=== PATIENT | male | born 1945 | race Caucasian/White ===

== ENCOUNTER → 2024-05-15 | Outpatient (CLI) | payer MEDICARE, BC, SELFPAY ==
--- NOTE | 2024-05-15 13:39 | XR_ITS ---
Examination: Lumbar spine, 5 views Technique: Lumbar spine AP, lateral, coned lateral lower lumbar spine, bilateral obliques 5 views Exam date and time: May 15, 2024 1418 hours INDICATIONS: Low back pain radiating down the left leg beginning one month ago. FINDINGS: Moderate osteopenia No lumbar acute fracture Diffuse lumbar degenerative disc disease, moderate to advanced L4-L5 Moderate lumbar spondylosis IMPRESSION: Diffuse lumbar degenerative disc disease, moderate to advanced L4-L5
== END | disposition home or self-care (01) ==
LOC: CDIM 13:28
PROVIDERS: PCP Family Medicine; Referring Provider Nurse Practitioner Family; Visit Provider Nurse Practitioner Family
DX: M51.369 Other intervertebral disc degeneration, lumbar region without mention of lumbar back pain or lower extremity pain (principal)
CPT/HCPCS: 72110

== ENCOUNTER → 2024-05-27 | Outpatient (CLI) | payer MEDICARE, BC, SELFPAY ==
--- NOTE | 2024-05-27 12:26 | XR_ITS ---
Examination: Knee, left , 3 views Technique: Knee AP, lateral, oblique 3 views Date and time of exam: May 27, 2024 1416 hours INDICATIONS: Left knee pain beginning 2 weeks ago. FINDINGS: Mild narrowing medial joint space No fracture or dislocation Moderate osteopenia IMPRESSION: Mild narrowing medial joint space
== END | disposition home or self-care (01) ==
PROVIDERS: PCP Nurse Practitioner Family; Referring Provider Nurse Practitioner Family; Visit Provider Nurse Practitioner
DX: M25.862 Other specified joint disorders, left knee (principal)
CPT/HCPCS: 73562

== ENCOUNTER → 2024-07-24 | Outpatient (CLI) | payer MEDICARE, BC, SELFPAY ==
[2024-07-24 16:50] LABS: Collection Type, Urine Clean Catch
[2024-07-24 17:01] LABS: Basophils # (Auto) 0.1 Thou/mm3 (0.0-0.2); Basophils % (Auto) 1 % (0-2.5); Eosinophils # (Auto) 0.1 Thou/mm3 (0.0-0.5); Eosinophils % (Auto) 1 % (0-10); Hematocrit 38.7 % (41.0-53.0); Hemoglobin 13.3 g/dL (13.5-16.0); Immature Granulocytes % (Auto) 1 % (0-0); Immature Granulocytes Auto 0.06 Thou/mm3 (0.00-0.00); Lymphocytes # (Auto) 2.2 Thou/mm3 (1.0-4.8); Lymphocytes % (Auto) 29 % (10-50); Mean Corpuscular HGB Conc 34.4 g/dl (31.0-37.0); Mean Corpuscular Hemoglobin 32.8 pg (25.0-35.0); Mean Corpuscular Volume 96 fL (80-100); Monocytes # (Auto) 0.8 Thou/mm3 (0.0-0.8); Monocytes % (Auto) 10 % (0-12); Neutrophils # (Auto) 4.5 Thou/mm3 (1.8-7.7); Neutrophils % (Auto) 59 % (37-80); Nucleated Red Blood Cell % 0 /100 WBC (0); Platelet Count 236 Thou/mm3 (140-440); RDW Standard Deviation 44.4 fL (35.1-43.9); Red Blood Count 4.05 Miln/mm3 (4.50-5.90); White Blood Count 7.6 Thou/mm3 (3.8-10.6)
[2024-07-24 17:08] LABS: Partial Thromboplastin Time 25.1 Seconds (22.0-36.0); Prothrombin Time 10.9 Seconds (9.0-12.2)
[2024-07-24 17:20] LABS: Bacteria,Urine Rare; Bilirubin,Urine Negative (Negative); Blood,Urine Negative (Negative); Clarity,Urine Clear (Clear/Hazy); Color,Urine Yellow (Lt Yel-Yel); Culture Indicated,Urine Not Indicated; Glucose, Urine Negative (Negative); Ketones,Urine Negative (Negative); Leukocyte Esterase,Urine Positive (Negative); Nitrite,Urine Negative (Negative); Protein,Urine 1+ (Neg - Trace); RBC,Urine 3 /hpf (0-3); Specific Gravity,Urine 1.029 (1.001-1.035); Squamous Epithelial Cell,Urine < 1 /hpf (0-5); WBC,Urine 9 /hpf (0-5)
[2024-07-24 17:27] LABS: Alanine Aminotransferase 53 U/L (10-49); Albumin, Serum 4.2 gm/dL (3.4-4.8); Albumin/Globulin Ratio 1.2 (1.2-2.2); Alkaline Phosphatase 134 U/L (46-116); Anion Gap 10 (7-16); Aspartate Amino Transferase 46 U/L (0-34); BUN/Creatinine Ratio 20 Ratio (12-20); Bilirubin,Total 0.4 mg/dL (0.3-1.2); Blood Urea Nitrogen 22 mg/dL (9-23); Calcium 9.5 mg/dL (8.3-10.6); Calcium (Corrected) 9.5 mg/dL (8.5-10.1); Carbon Dioxide 26.8 mMol/L (20.0-31.0); Chloride 102 mMol/L (98-107); Creatinine (Component) 1.1 mg/dL (0.6-1.3); Globulin 3.6 gm/dL (2.3-3.5); Glucose 91 mg/dL (74-106); Osmolality,Calculated 280 (275-295); Potassium 4.2 mMol/L (3.4-5.1); Sodium 139 mMol/L (136-145); Total Protein 7.8 gm/dL (5.7-8.2); eGFR > 60 See Note
[2024-07-24 20:41] LABS: Glucose Estimated Average 100 mg/dL (80-131); Hemoglobin A1C 5.1 % Hgb (4.8-6.0)
== END | disposition home or self-care (01) ==
LOC: CDIM 14:50 → COPL 14:50
PROVIDERS: Referring Provider Nurse Practitioner Family; Visit Provider Nurse Practitioner Family
DX: I10 Essential (primary) hypertension (principal)
CPT/HCPCS: 36415; 80053; 81001; 83036; 85025; 85610; 85730

== ENCOUNTER → 2024-08-04 | Outpatient (CLI) | payer MEDICARE, BC, SELFPAY ==
--- NOTE | 2024-08-04 12:20 | XR_ITS ---
Examination: Bone densitometry Date and time of exam:August 04, 2024 1237 hours INDICATIONS: 79-year-old male with diagnosis age related osteoporosis, history lumbar spine fracture Technique: Lumbar spine and hip total bone mineralization values of an calculated. Peak reference and age match control results have been displayed. Findings: Lumbar spine total bone mineralization is0.985 gm/cm2. This is 1.0 standard deviations below peak reference. This is 0.1 standard deviations above age-matched controls. Hip total bone mineralization is 0.855 gm/cm2 This is 1.2 standard deviations below peak reference. This is 0.3 standard deviations below age-matched controls Impression: There is normal mineralization based on lumbar spine measurements. There is osteopenia based on hip measurements
== END | disposition home or self-care (01) ==
LOC: CDIM 11:59
PROVIDERS: Referring Provider Physician Assistant; Visit Provider Physician Assistant
DX: M85.88 Other specified disorders of bone density and structure, other site (principal)
CPT/HCPCS: 77080

== ENCOUNTER 2024-09-19 11:55 | Inpatient (IN) | payer MEDICARE, BC, SELFPAY ==
[2024-09-19] VITALS (9 sets, daily range): BP systolic 143–168; BP diastolic 64–77; PULSE 49–84; RESP 17–98; TEMP 36.1–36.8; O2SAT 98–100; BMI 28.2; BMI 23.1
--- NOTE | 2024-09-19 12:19 | PC.NURSE ---
Patient BIBA due to sudden back pain while attempting to get out of bed. When EMS arrived patient was in bed, and had to be carried out on a flat to [facility] due to patient is not able to sit up due to pain. Patient had a back procedure 7 weeks ago in [place]. Patient is A&O X4 c/o R shoulder pain 01/30, and states that as long as patient does not move back he is fine. POC updated.
--- NOTE | 2024-09-19 13:15 | XR_ITS ---
Examination: CT lumbar spine, without contrast. 2-D sagittal reconstructions. 2-D coronal reconstructions. 3-D reconstructions. Date and time of exam:September 19, 2024 1416 hours INDICATIONS: Patient fell today with injury to lower back, lower back pain CTDI: vol (mGy):17.8 DLP: (mGycm):632 Technique: Multiple 1.25 mm axial sections of the lumbar spine without intravenous contrast have been obtained. 2-D sagittal and coronal reconstructions have been obtained. 3-D reconstructions have been obtained. Low dose protocols were performed. One or more of the following dose reduction techniques were used; automated exposure control, adjustment of the mA and/or KV according to patient size, use of iterative reconstruction technique. Findings: Severe osteopenia Mild acute fracture T12 vertebral body, axial image 29, depression superior endplate, reduction in height 15% Chronic osteoporotic compressions L1 and L5 No acute lumbar fracture IMPRESSION: Mild acute fracture T12 vertebral body
--- NOTE | 2024-09-19 13:15 | XR_ITS ---
Examination: CT thoracic spine, without contrast. 2-D sagittal reconstructions. 2-D coronal reconstructions. 3-D reconstructions. Date and time of exam:September 19, 2024 1416 hours INDICATIONS: Patient fell today with injury to the back, mid back pain CTDI: vol (mGy):18.7 DLP: (mGycm):636 Technique: Multiple 1.25 mm axial sections of the thoracic spine without intravenous contrast have been obtained. 2-D sagittal and coronal reconstructions have been obtained. 3-D reconstructions have been obtained. Low dose protocols were performed. One or more of the following dose reduction techniques were used; automated exposure control, adjustment of the mA and/or KV according to patient size, use of iterative reconstruction technique. Findings: Severe osteopenia Mild acute fracture T12 vertebral body, depression superior endplate Reduction in height approximately 15%, pedicles appear intact IMPRESSION: Severe osteopenia Mild acute fracture T12 vertebral body
[2024-09-19 13:33] LABS: Basophils % (Auto) 0 % (0-2.5); Eosinophils # (Auto) 0.1 Thou/mm3 (0.0-0.5); Eosinophils % (Auto) 1 % (0-10); Hematocrit 37.8 % (41.0-53.0); Hemoglobin 13.1 g/dL (13.5-16.0); Immature Granulocytes % (Auto) 2 % (0-0); Immature Granulocytes Auto 0.14 Thou/mm3 (0.00-0.00); Lymphocytes # (Auto) 2.9 Thou/mm3 (1.0-4.8); Lymphocytes % (Auto) 34 % (10-50); Mean Corpuscular HGB Conc 34.7 g/dl (31.0-37.0); Mean Corpuscular Hemoglobin 32.3 pg (25.0-35.0); Mean Corpuscular Volume 93 fL (80-100); Monocytes # (Auto) 0.8 Thou/mm3 (0.0-0.8); Monocytes % (Auto) 9 % (0-12); Neutrophils # (Auto) 4.8 Thou/mm3 (1.8-7.7); Neutrophils % (Auto) 55 % (37-80); Nucleated Red Blood Cell % 0 /100 WBC (0); Platelet Count 170 Thou/mm3 (140-440); RDW Standard Deviation 42.9 fL (35.1-43.9); Red Blood Count 4.05 Miln/mm3 (4.50-5.90); White Blood Count 8.7 Thou/mm3 (3.8-10.6)
[2024-09-19 13:47] LABS: Alanine Aminotransferase 76 U/L (10-49); Albumin, Serum 3.8 gm/dL (3.4-4.8); Albumin/Globulin Ratio 1.1 (1.2-2.2); Alkaline Phosphatase 127 U/L (46-116); Anion Gap 9 (7-16); Aspartate Amino Transferase 44 U/L (0-34); BUN/Creatinine Ratio 20 Ratio (12-20); Bilirubin,Total 0.4 mg/dL (0.3-1.2); Blood Urea Nitrogen 20 mg/dL (9-23); Calcium (Corrected) 9.2 mg/dL (8.5-10.1); Carbon Dioxide 28.7 mMol/L (20.0-31.0); Chloride 103 mMol/L (98-107); Estimated Creatinine Clearance 61.3 mL/min (>60); Globulin 3.4 gm/dL (2.3-3.5); Glucose 88 mg/dL (74-106); Osmolality,Calculated 282 (275-295); Potassium 4.2 mMol/L (3.4-5.1); Sodium 141 mMol/L (136-145); Total Protein 7.2 gm/dL (5.7-8.2); eGFR > 60 See Note
[2024-09-19] MEDS: ONDANSETRON INJ 2 MG/ML INJ 2 ML 4 MG IVP (14:05)
[2024-09-19] MEDS: MORPHINE SULF INJ 10 MG/ML VIAL 5 MG IVP (14:08)
--- NOTE | 2024-09-19 14:25 | XR_ITS ---
Examination: Clavicle 2 views, right Technique: Clavicle AP, angled up AP, 2 views Exam date and time: September 19, 2024 at 1436 hours INDICATIONS: Patient fell today with into the clavicle, clavicle pain. FINDINGS: Acute fracture distal clavicular shaft, no significant displacement Humerus scapula appear intact IMPRESSION: Acute fractures clavicular shaft
--- NOTE | 2024-09-19 15:46 | PD.EDBACK ---
ED Back Injury Pain RME/HPI General Chief Complaint: Back Pain/Injury Stated Complaint: BACK PAIN Arrival date/time: 09/19/24 11:55 RME / HPI RME / HPI Narrative: 79 year old male presents to the ED BIBA from home for evaluation of back pain adding 'I think I broke my back again . He reports upon getting out of bed to use the restroom, he experienced increased back pain that was beyond his usual pain. When he returned to lay in bed noted he was no longer able to turn or sit up secondary to the pain, prompting calling 911. Patient states 7 weeks ago he underwent vertebroplasty in [place] for L5 compression fracture and L1 fracture and is currently on [place] 10's. Patient additionally complains of right clavicle pain beginning days ago, described as sharp stabbing in sensation that is aggravated with movements. States he had imaging performed with PCP and is pending results. Denies falls/injuries today. No other associated symptoms reported. Denies leg weakness. Related Data Home Medications ?Medication ?Instructions ?Recorded ?Confirmed mesalamine 400 mg capsule (with 8 tab PO DAILY 01/27/19 01/10/24 delayed release tablets inside) (Delzicol) amlodipine 5 mg tablet 10 mg PO QDAY 11/14/23 01/10/24 cetirizine 10 mg tablet 10 mg PO AC 11/14/23 01/10/24 sertraline 50 mg tablet 50 mg PO QDAY 11/14/23 01/10/24 tamsulosin 0.4 mg capsule 0.4 mg PO QDAY 11/14/23 01/10/24 losartan 25 mg tablet 25 mg PO DAILY 01/10/24 01/10/24 Allergies Allergy/AdvReac Type Severity Reaction Status Date / Time No Known Allergies Allergy Verified 01/11/24 08:56 Review of Systems Review of Systems Narrative Review of Systems: GEN: No fever, no chills, no weight loss EYES: No discharge, no visual changes, no pain HEENT: No ear pain, no congestion, no sore throat PULM: No shortness of breath, no cough, no congestion CV: No chest pain, no dyspnea on exertion, no palpitations GI: No nausea, no vomiting, no diarrhea, no pain, no constipation : No frequency, no urgency, no dysuria MUSC/SKEL: No joint pain, + back pain, +right clavicle pain SKIN: No rash PSYCH: No hallucinations, no depression HEME/LYMPH: No easy bleeding or bruising tendencies NEURO: No weakness, no headache Past Medical History Past Medical History CARDIAC: Positive Cardiac Disorders, Coronary Artery Disease (x1 STENT), Hypercholesterolemia and Hypertension RESPIRATORY: Positive Chronic Obstructive Pulmonary Disease (COPD) (mild) and Sleep Apnea GASTROINTESTINAL: Positive Gastrointestinal Disorders (dysphagia), Colitis, Ulcerative Colitis and Gastroesophageal Reflux Disease GENITOURINARY: Positive Genitourinary Disorders and Benign Prostatic Hyperplasia MUSCULOSKELETAL: Positive Musculoskeletal Disorders and Arthritis OTHER HISTORY: Positive Chicken Pox, Measles, Mumps and Cancer Family History FAMILY HISTORY: Positive Family Cardiac Disorders (MOTHER - HIGH CHOLESTEROL) Surgical History SURGICAL: Positive Cardiac Surgery and Coronary Stent (x1) Social History SMOKING STATUS: Former smoker ED Exam Narrative Physical exam: GENERAL APPEARANCE: alert and oriented x 4, well-developed, well-nourished, no acute distress HEENT: Normocephalic, atraumatic; pupils equal, round, reactive to light; EOMI; mucous membranes pink, moist; oropharynx clear NECK: Supple LUNGS: CTABL; no wheezes, no rales, no rhonchi HEART: Regular rate, regular rhythm; normal S1, S2; no murmurs ABDOMEN: non distended; normal BS; soft, no tenderness, no guarding, no rebound; no masses, no organomegaly, no hernia BACK: spinous tenderness lower thoracic upper lumbar area, no CVA tenderness EXTREMITIES: deformity of his rigth clavicle laterally with no crepitus; no edema NEUROLOGIC: awake; alert and oriented x4; cranial nerves II-XII grossly intact; no focal sensory or motor deficits PSYCHIATRIC: appropriate mood and affect SKIN: warm, dry, normal color; no rashes Course Quality Measures none Orders Category Date Time Status Referral Physical Therapy Stat Cons 09/19/24 15:[address] lumbar spine wo con Stat Exams 09/19/24 13:[address] thoracic spine wo con Stat Exams 09/19/24 13:15 Completed XR clavicle RT Stat Exams 09/19/24 14:25 Completed CBC Stat Lab 09/19/24 13:20 Completed CMP [Comprehensive Metabolic Panel] Stat Lab 09/19/24 13:20 Completed UA, C/S IF [Urinalysis, C/S if Indicated] Stat Lab 09/19/24 13:16 Ordered Morphine Inj Med 09/19/24 13:15 Discontinued 5 mg IVP X1 ONE Ondansetron Inj [Zofran Inj] Med 09/19/24 13:15 Discontinued 4 mg IVP X1 ONE Vital Signs Vital signs: Vital Signs Temperature 97.7 F 09/19/24 11:57 Pulse Rate 65 09/19/24 11:57 Respiratory Rate 17 09/19/24 11:57 Blood Pressure 157/73 H 09/19/24 11:57 Pulse Oximetry (%) 98 09/19/24 11:57 Oxygen Delivery Method Room Air 09/19/24 11:57 Pulse ox is 98% on room air which is adequate. Back Pain / Injury MDM Narrative MDM Narrative:: Analilia Gurrola am scribing for and in the presence of Dr. Leblanc. 1445: We reviewed all the results, analysis, and treatment plans. requesting patient to be placed into rehab facility due to pain and difficulty getting in/out of bed. 1500: The social work assistant has been informed of the SNF placement request. Patient data External records reviewed:: [facility] previous records (I reviewed H&P on 01/11/2024 ) and EMS form Clinical information provided by:: patient and EMS Social determinants that could affect healthcare access:: none Patient has the following chronic illnesses:: hypertension, ulcerative colitis, hx of esophageal stricture requiring dilatation How is presenting disease/condition affected by chronic disease/condition?: exacerbated by Evaluation data The following diagnostics were reviewed and interpreted by me:: lab results and radiology exam(s) Lab and/or radiology exams considered but not ordered:: None Interpretation Summary: Ordering Physician: Joanne Leblanc MD Date of Service: 09/19/24 Procedure(s): CT lumbar spine wo con Accession Number(s): [id number] cc: Yoel Stephenson MD; Joanne Leblanc MD; Yoly Polo MD~ Examination: CT lumbar spine, without contrast. 2-D sagittal reconstructions. 2-D coronal reconstructions. 3-D reconstructions. Date and time of exam:September 19, 2024 1416 hours INDICATIONS: Patient fell today with injury to lower back, lower back pain CTDI: vol (mGy):17.8 DLP: (mGycm):632 Technique: Multiple 1.25 mm axial sections of the lumbar spine without intravenous contrast have been obtained. 2-D sagittal and coronal reconstructions have been obtained. 3-D reconstructions have been obtained. Low dose protocols were performed. One or more of the following dose reduction techniques were used; automated exposure control, adjustment of the mA and/or KV according to patient size, use of iterative reconstruction technique. Findings: Severe osteopenia Mild acute fracture T12 vertebral body, axial image 29, depression superior endplate, reduction in height 15% Chronic osteoporotic compressions L1 and L5 No acute lumbar fracture IMPRESSION: Mild acute fracture T12 vertebral body Dictated By: Yoel Stephenson MD Signed By: <Electronically signed by Yoel Stephenson MD in OV> 09/19/24 1441 Ordering Physician: Joanne Leblanc MD Date of Service: 09/19/24 Procedure(s): CT thoracic spine cox monett Accession Number(s): [id number] cc: Yoel Stephenson MD; Joanne Leblanc MD; Yoly Polo MD~ Examination: CT thoracic spine, without contrast. 2-D sagittal reconstructions. 2-D coronal reconstructions. 3-D reconstructions. Date and time of exam:September 19, 2024 1416 hours INDICATIONS: Patient fell today with injury to the back, mid back pain CTDI: vol (mGy):18.7 DLP: (mGycm):636 Technique: Multiple 1.25 mm axial sections of the thoracic spine without intravenous contrast have been obtained. 2-D sagittal and coronal reconstructions have been obtained. 3-D reconstructions have been obtained. Low dose protocols were performed. One or more of the following dose reduction techniques were used; automated exposure control, adjustment of the mA and/or KV according to patient size, use of iterative reconstruction technique. Findings: Severe osteopenia Mild acute fracture T12 vertebral body, depression superior endplate Reduction in height approximately 15%, pedicles appear intact IMPRESSION: Severe osteopenia Mild acute fracture T12 vertebral body Dictated By: Yoel Stephenson MD Signed By: <Electronically signed by Yoel Stephenson MD in OV> 09/19/24 1442 Ordering Physician: Joanne Leblanc MD Date of Service: 09/19/24 Procedure(s): XR clavicle RT Accession Number(s): [id number] cc: Yoel Stephenson MD; Joanne Leblanc MD; Yoly Polo MD~ Examination: Clavicle 2 views, right Technique: Clavicle AP, angled up AP, 2 views Exam date and time: September 19, 2024 at 1436 hours INDICATIONS: Patient fell today with into the clavicle, clavicle pain. FINDINGS: Acute fracture distal clavicular shaft, no significant displacement Humerus scapula appear intact IMPRESSION: Acute fractures clavicular shaft Dictated By: Yoel Stephenson MD Signed By: <Electronically signed by Yoel Stephenson MD in OV> 09/19/24 1448 Medications / Prescriptions Medications or Prescriptions considered but not ordered:: None Medication administrations:: Medication Administration History Discontinued Medications Morphine Sulfate (Morphine Sulf Inj 10 Mg/Ml Vial) 5 mg IVP X1 ONE Stop: 09/19/24 13:16 Last Admin: 09/19/24 14:08 Dose: 5 mg Documented By: ER Ondansetron HCl (Ondansetron Inj 2 Mg/Ml Inj 2 Ml) 4 mg IVP X1 ONE Stop: 09/19/24 13:16 Last Admin: 09/19/24 14:05 Dose: 4 mg Documented By: ER See above Consultations Consultation(s) initiated? (list below): Yes Consultation #1 (Physician, Specialty, Details): I spoke with hospitalist Dr. Iyer. Discussed patients PMHx, HPI, ED course, exam findings, labs, and radiology results. The hospitalist agree to accept the patient for admission. Time: 16:07 Diagnosis Most likely diagnosis given after review of the tests above:: T12 compression fracture Right clavicle fracture Back pain Admission Indicated Admission indicated?: indicated Admission Request Was there a request for admission?: Yes Admission Attestation Admission request attestation: Discussed case with [] from Hospitalist service regarding admission. Discussed patients ED course, exam findings, labs, and radiology results. The Hospitalist [agrees,declines] to accept the patient for admission. Disposition Plan Disposition Plan: Admit Discharge Plan Plan Patient Disposition: Admit Acute Care w/in Hospital Prescriptions/Referrals Prescriptions/Med Rec: No Action mesalamine [Delzicol] 400 mg Capsule (With Del Rel Tablets) 8 tab PO DAILY cetirizine 10 mg tablet 10 mg PO AC Patient Comments: TAKE 1 TABLET BY MOUTH DAILY amlodipine 5 mg tablet 10 mg PO QDAY Patient Comments: GENERIC FOR NORVASC- TAKE 1 TABLET BY MOUTH EVERY DAY tamsulosin 0.4 mg Capsule 0.4 mg PO QDAY sertraline 50 mg Tablet 50 mg PO QDAY losartan 25 mg tablet 25 mg PO DAILY Patient Comments: TAKE 1 TABLET BY MOUTH EVERY DAY Referrals: Yoly Polo MD [Primary Care Provider] - In 1 week Problem List Clinical Impression: T12 compression fracture, Fracture of right clavicle, Back pain Patient/Caregiver Discharge Instructions Print Language: Tamazight Stand Alone Forms: Breanne Award Info., Patient Portal Info Letter
--- NOTE | 2024-09-19 16:21 | PC.NURSE ---
Physical therapy at bedside assessing patient at this time.
--- NOTE | 2024-09-19 16:37 | PC.PT ---
PT evaluation received. Initially the plan is that patient will be dc from ER. And then at the time of PT evaluation, ER MD confirmed that patient will be admitted. This PT informed the patient and at bedside, that PT will initiate when patient is transferred to the room upstairs. This PT also informed the , that if she could bring patient's back brace. At the time of encounter it is 1630, even if we order a TLSO from [facility], the office is most likely close and tomorrow is the weekend. Most likely, brace will come on Sunday. verbalizes that she could bring the brace tomorrow. Patient is currently on shoulder sling. Will assess patient with clavicle strap when we are ready to get him OOB to see which one is more comfortable and appropriate for the patient. Everything is explained in detail to the patient and the about Physical therapy. They both verbalize understanding.
--- NOTE | 2024-09-19 17:04 | PC.CC ---
Patient is a 79 year old male who presents to the Emergency Department for back pain. [employer]W [employer] and [employer] student Kandace, introduced self, role reason for visit. Limits of confidentiality were discussed. Patient appears to be alert and oriented to self, location and situation. Patient was pleasant and engaged in initial assessment. Patient confirmed information on demographics. Patient is retired and lives with his Kathi Coronel ([phone]) who he also named as his surrogate decision maker. Patients primary care provider is Dr. Polo and his pharmacy of preference is [facility]. Patient uses a walker to ambulate at home and his asists with his ADL's. Patient reports he uses a CPAP machine during the night. Upon discharge patient would like to seek placement at a SNF facility. interlibrary loan services librarian will follow up with any discharge needs.
--- NOTE | 2024-09-19 17:12 | PD.RESHP ---
Documentation for date of: 09/19/24 HPI History of Present Illness Chief complaint: Back Pain History of present illness: HPI: Patient is a 79-year-old male with past medical history significant for primary hypertension, hyperlipidemia, CAD's s/p stent, ulcerative colitis and Osteoporosis [T-score -2.6] presenting today with a chief complaint of sudden onset back pain. Follows up with bar waiter/waitress Dr. Anderson and life cycle assessment analyst, Dr. Trey Guadarrama Patient's says that today when he was getting out of bed he felt a sudden snap in his back and 10/10 mid back pain. He immediately had to lie back down and wait for the paramedics to move him. Describes it as a sharp pain, denies any radiation and aggravated by movement. No loss of bowel or bladder continence. Of note patient fractured his right clavicle 3 days ago when trying to lift something heavy and has had multiple osteoporotic fractures in the past. He says that a few months ago he had a DEXA scan and his T-score was -2.6. He does endorse a history of occasional steroid use in the past for ulcerative colitis flares but has not been on them long-term. Also denies any chronic NSAID use history and says he consumes a balanced diet. Patient says that he also follows up with pain specialist in [place] and has monthly epidurals for his chronic back pain. ED course: BP 161/77, pulse 63, RR 18, temp 98.3 F, SpO2 100% on room air. Labs showed Hb 13.1, HCT 37.8, corrected calcium 9.2, AST 44, ALT 76, ALP 127. CT thoracic spine showed T12 compression fracture, 15% height reduction and severe osteopenia. Chronic osteoporotic fractures L1 and L5 In the ED patient received morphine 5 Mg IV x 1 and ondansetron 4 Mg IV x 1. Patient will be admitted for treatment and management of osteoporotic compression fracture requiring IV pain medication. Review of Systems Review of Systems Narrative Review of Systems: GENERAL: Denies fever/chills or diaphoresis. HEENT: Denies headaches or visual changes. Denies discharge. Neuro: Denies unusual weakness or difficulty speaking. CARDIO: Denies chest pain or palpitations. PULM: Denies SOB, coughing or wheezing. GI: Denies abdominal pain, N/V/C/D. Reports having BMs. URO: Denies burning/itching/pain/urinary changes. MSK/EXT/SKIN: As above PSYCH: Cooperative, pleasant mood & affect. The rest of the review of systems is otherwise negative. Past Medical History Past Medical History Comments PMH COMMENT: Past medical history: Primary hypertension Hyperlipidemia CAD s/p stent Ulcerative colitis on mesalamine EVERT on CPAP Osteoporosis T score -2.6 Medication list: Losartan 25 Mg p.o. daily Amlodipine 10 Mg p.o. daily Mesalamine 400 Mg p.o. daily Sertraline 50 Mg p.o. 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 Has 3 kids. 1 Tobacco use: Denies ETHO use: Approximately 2 glasses of wine every night Illicit drug use: Denies Social History Note: lives with . Ambulates with a walker for the past 3 weeks. Family History: No significant history Exam Vital Signs Temp Pulse Resp BP Pulse Ox O2 Del Method 97.6 F 64 18 168/74 H 99 Room Air 09/19/24 16:34 09/19/24 16:34 09/19/24 16:34 09/19/24 16:34 09/19/24 16:34 09/19/24 16:34 Narrative Exam Constitutional Alert, oriented x 3 and comfortable. Elderly male HEENT Vision grossly intact. Patent nares. Trachea midline Respiratory Chest normal on inspection and clear auscultation bilaterally Cardiovascular S1 and S2 audible, RRR. No murmurs carotid bruit. No gross JVD. Abdominal Soft and non tender to palpation in all quadrants. BS + Genitourinary No bladder tenderness, no flank pain. Normal to palpation Musculoskeletal Extremities tone within normal limits. No LE edema. Right arm in sling. Neurological CN II - XII grossly intact. Extremity motor and sensation grossly intact. Gait not assessed Skin Warm, dry and intact. No apparent lesions. Psychiatric Patient has good affect, is cooperative Results: Labs 09/20/24 04:27 09/20/24 04:27 Labs: Short CBC 09/19/24 Range/Units 13:20 WBC 8.7 (3.8-10.6) Thou/mm3 Hgb 13.1 L (13.5-16.0) g/dL Hct 37.8 L (41.0-53.0) % Plt Count 170 (140-440) Thou/mm3 BMP 09/19/24 13:20 Sodium 141 Potassium 4.2 Chloride 103 Carbon Dioxide 28.7 BUN 20 Creatinine 1.0 Glucose 88 Calcium 9.0 Liver Function 09/19/24 Range/Units 13:20 Total Bilirubin 0.4 (0.3-1.2) mg/dL AST 44 H (0-34) U/L ALT 76 H (10-49) U/L Alkaline Phosphatase 127 H (46-116) U/L Albumin 3.8 (3.4-4.8) gm/dL Quality Measures Quality Measures none Advance care planning discussed with:: patient and spouse Medications Home Medications and Allergies Home Medications ?Medication ?Instructions ?Recorded ?Confirmed ?Type mesalamine 400 mg capsule (with 8 tab PO DAILY 01/27/19 09/19/24 History delayed release tablets inside) (Delzicol) amlodipine 5 mg tablet 10 mg PO QDAY 11/14/23 09/19/24 History cetirizine 10 mg tablet 10 mg PO AC 11/14/23 09/19/24 History sertraline 50 mg tablet 50 mg PO QDAY 11/14/23 09/19/24 History losartan 25 mg tablet 25 mg PO DAILY 01/10/24 09/19/24 History Allergies Allergy/AdvReac Type Severity Reaction Status Date / Time No Known Allergies Allergy Verified 01/11/24 08:56 Visit Medications Discontinued Medications Morphine Sulfate (Morphine Sulf Inj 10 Mg/Ml Vial) 5 mg IVP X1 ONE Stop: 09/19/24 13:16 Last Admin: 09/19/24 14:08 Dose: 5 mg Ondansetron HCl (Ondansetron Inj 2 Mg/Ml Inj 2 Ml) 4 mg IVP X1 ONE Stop: 09/19/24 13:16 Last Admin: 09/19/24 14:05 Dose: 4 mg Assessment & Plan Plan Patient is a 79-year-old male with past medical history significant for primary hypertension, hyperlipidemia, CAD's s/p stent, ulcerative colitis and Osteoporosis [T-score -2.6] presenting today with a chief complaint of sudden onset back pain. Follows up with bar waiter/waitress Dr. Anderson and life cycle assessment analyst, Dr. Trey Guadarrama. CT thoracic spine showed T12 compression fracture, 15% height reduction and severe osteopenia. Chronic osteoporotic fractures L1 and L5. Patient will be admitted for treatment and management of osteoporotic compression fracture requiring IV pain medication. Osteoporotic T12 compression fracture Chronic osteoporotic L1 and L5 compression fractures Osteoporosis, T-score -2.6 Patient's was getting out of bed this morning felt a pop and excruciating 10 out of 10 pain. He had a DEXA scan a few months ago with a T-score of -2.6 CT thoracic spine showed T12 compression fracture, 15% height reduction and severe osteopenia. Chronic osteoporotic fractures L1 and L5. Plan: ? Calcium carbonate 600 Mg p.o. daily ? Vitamin D3 5000 IU p.o. daily. Upon discharge will recommend patient start on bisphosphonates - Hydrocodone 10/325 1 tab p.o. q. 4 hourly as needed for pain 4?10 ? Morphine 2 mg IV every 4 hourly as needed for breakthrough pain ? Physical therapy referral ? lube worker referral for placement Primary hypertension Hyperlipidemia Home medication amlodipine 10 Mg p.o. daily, losartan 25 Mg p.o. daily, levqio to 80 Mg SC every 6 months Plan: ? Resume home medication amlodipine 10 Mg p.o. daily ? Resume home medication losartan 25 Mg p.o. daily ? Started on atorvastatin 10 Mg p.o. at bedtime while in hospital CAD s/p stents Patient was not on any antiplatelet medication at home. Follows with Dr. Trey Guadarrama Ulcerative colitis on mesalamine Home medication mesalamine 400 Mg p.o. daily Plan: ? Resume home medication mesalamine 200 Mg p.o. daily Obstructive sleep apnea Patient uses a CPAP machine at night Plan: ?CPAP at night Health maintenance: Disposition: IV pain control. Pending placement in acute rehab Diet: Cardiac Lines: pIVs GI Prophylaxis: None Thrombo Prophylaxis: Enoxaparin Code status: FULL CODE Plan of care discussed with Attending Dr. Shireen Zambrano MD PGY 1 Disclaimer: This note was dictated by speech recognition. Minor errors in model and dye person may be present due to voice recognition software. Attending Provider Attestation/Addendum I reviewed labs, imaging, EKG, home medications and prior available records. Face to face evaluation was performed by me. I have personally examined the patient and discussed assessment and plan with the IM team. I reviewed the resident note and agree with the plan with exceptions as below. Acute compression fracture of T12 vertebra Chronic compression fractures Acute right clavicle fracture Osteoporosis Crohn's disease CAD status post stent Obstructive sleep apnea Essential hypertension BPH Management of pain as needed. He is requiring IV opiates Brace for the clavicle fracture PT/OT evaluation Resume home mesalamine Continue antihypertensive treatment and monitor BP Nightly CPAP/BiPAP
[2024-09-19] MEDS: amLODIPine BESYLATE 5 MG TABLET 10 MG PO (18:41)
[2024-09-19] MEDS: ENOXAPARIN SOD INJ 40 MG/0.4 ML SYRINGE SC (18:42)
[2024-09-19] MEDS: LOSARTAN POTASSIUM 25 MG TABLET PO (18:42)
[2024-09-19] MEDS: CHOLECALCIFEROL (Vitamin D3) 1,000 IU TABLET 5000 IU PO (20:14)
[2024-09-19] MEDS: CALCIUM CARBONATE 600 MG TABLET PO (20:15)
[2024-09-19] MEDS: MORPHINE SULF INJ 10 MG/ML VIAL 2 MG IVP (20:15)
[2024-09-20] VITALS (11 sets, daily range): BP systolic 114–150; BP diastolic 64–73; PULSE 57–102; RESP 16–97; TEMP 36–36.7; O2SAT 92–97
[2024-09-20] MEDS: HYDROcodone/APAP 10/325 TAB PO (03:39)
[2024-09-20 03:54] LABS: Collection Type, Urine Clean Catch
[2024-09-20 04:00] LABS: Bilirubin,Urine Negative (Negative); Blood,Urine Negative (Negative); Clarity,Urine Clear (Clear/Hazy); Color,Urine Lt-Yellow (Lt Yel-Yel); Culture Indicated,Urine Not Indicated; Glucose, Urine Negative (Negative); Ketones,Urine Negative (Negative); Leukocyte Esterase,Urine Negative (Negative); Nitrite,Urine Negative (Negative); PH,Urine 6.5 (5.0-7.0); Protein,Urine Negative (Neg - Trace); RBC,Urine 1 /hpf (0-3); Specific Gravity,Urine 1.012 (1.001-1.035); Squamous Epithelial Cell,Urine < 1 /hpf (0-5); Urobilinogen,Urine Negative mg/dL (0.0-1.0); WBC,Urine 1 /hpf (0-5)
[2024-09-20 05:32] LABS: Basophils % (Auto) 0 % (0-2.5); Eosinophils % (Auto) 0 % (0-10); Hematocrit 35.6 % (41.0-53.0); Hemoglobin 12.9 g/dL (13.5-16.0); Immature Granulocytes % (Auto) 2 % (0-0); Immature Granulocytes Auto 0.13 Thou/mm3 (0.00-0.00); Lymphocytes # (Auto) 1.1 Thou/mm3 (1.0-4.8); Lymphocytes % (Auto) 14 % (10-50); Mean Corpuscular HGB Conc 36.2 g/dl (31.0-37.0); Mean Corpuscular Hemoglobin 32.6 pg (25.0-35.0); Mean Corpuscular Volume 90 fL (80-100); Monocytes # (Auto) 0.2 Thou/mm3 (0.0-0.8); Monocytes % (Auto) 3 % (0-12); Neutrophils # (Auto) 6.6 Thou/mm3 (1.8-7.7); Neutrophils % (Auto) 81 % (37-80); Nucleated Red Blood Cell % 0 /100 WBC (0); Platelet Count 165 Thou/mm3 (140-440); RDW Standard Deviation 39.7 fL (35.1-43.9); Red Blood Count 3.96 Miln/mm3 (4.50-5.90); White Blood Count 8.1 Thou/mm3 (3.8-10.6)
[2024-09-20 05:56] LABS: Alanine Aminotransferase 76 U/L (10-49); Albumin, Serum 3.8 gm/dL (3.4-4.8); Albumin/Globulin Ratio 1.2 (1.2-2.2); Alkaline Phosphatase 132 U/L (46-116); Anion Gap 11 (7-16); Aspartate Amino Transferase 42 U/L (0-34); BUN/Creatinine Ratio 24 Ratio (12-20); Bilirubin,Total 0.6 mg/dL (0.3-1.2); Blood Urea Nitrogen 22 mg/dL (9-23); Calcium 9.4 mg/dL (8.3-10.6); Calcium (Corrected) 9.6 mg/dL (8.5-10.1); Carbon Dioxide 25.2 mMol/L (20.0-31.0); Chloride 101 mMol/L (98-107); Cholesterol 191 mg/dL (132-200); Creatinine (Component) 0.9 mg/dL (0.6-1.3); Globulin 3.3 gm/dL (2.3-3.5); Glucose 137 mg/dL (74-106); HDL Cholesterol 48 mg/dL (40-60); LDL Cholesterol,Calculated 106 mg/dL (0-130); Magnesium 1.7 mg/dL (1.6-2.6); Osmolality,Calculated 279 (275-295); Phosphorous 4.5 mg/dL (2.4-5.1); Potassium 4.9 mMol/L (3.4-5.1); Sodium 137 mMol/L (136-145); Total Protein 7.1 gm/dL (5.7-8.2); Triglycerides 185 mg/dL (30-150); eGFR > 60 See Note
[2024-09-20] MEDS: amLODIPine BESYLATE 5 MG TABLET 10 MG PO (08:26)
[2024-09-20] MEDS: LOSARTAN POTASSIUM 25 MG TABLET PO (08:27)
[2024-09-20] MEDS: CALCIUM CARBONATE 600 MG TABLET PO (08:27)
[2024-09-20] MEDS: ENOXAPARIN SOD INJ 40 MG/0.4 ML SYRINGE SC (08:28)
[2024-09-20] MEDS: CHOLECALCIFEROL (Vitamin D3) 1,000 IU TABLET 5000 IU PO (10:10)
[2024-09-20] MEDS: MORPHINE SULF INJ 10 MG/ML VIAL 2 MG IVP ×2 (10:12→20:13)
[2024-09-20] MEDS: MESALAMINE 400 MG CAPSULE.DR PO ×2 (10:12→11:32)
--- NOTE | 2024-09-20 14:35 | PD.ADDPROG ---
Addendum Progress Note Addendum Date of report being addended: 09/20/24 Narrative: Attending's attestation: I reviewed labs, imaging, EKG, home medications and prior available records. Face to face evaluation was performed by me. I have personally examined the patient and discussed assessment and plan with the IM team. I reviewed the resident note and agree with the plan with exceptions as below. Acute compression fracture of T12 vertebra Chronic compression fractures Acute right clavicle fracture Osteoporosis Crohn's disease CAD status post stent Obstructive sleep apnea Essential hypertension BPH Management of pain as needed. He is requiring IV opiates Brace for the clavicle fracture PT/OT evaluation Resume home mesalamine 800 mg twice daily Continue antihypertensive treatment and monitor BP Nightly CPAP/BiPAP
--- NOTE | 2024-09-20 15:02 | PC.PT ---
The TLSO brace will arrive on Sunday so PT recommends waiting until then to get pt OOB. Dr. Iyer aware and agrees.
--- NOTE | 2024-09-20 17:15 | PD.RESPRO ---
Documentation for date of: 09/20/24 Subjective Subjective Interval history: Patient was seen and examined at bedside. At this time her only complaint of moderate to severe pain in his back and the clavicular region. Patient was given Slater 10/325 and was given 1 dose of morphine. Because the patient has obstructive sleep apnea we are cautiously giving him opioids at this time. We spoke with him regarding his home medications mesalamine he reported that he has been taking 800 mg p.o. twice daily. He resumed his home medications for the colitis at the same dose at 100 mg p.o. twice daily. His vital signs within normal limits, we are waiting for the PT assessment and recommendations. Exam Vital Signs Temp Pulse Resp BP Pulse Ox O2 Del Method 98.1 F 100 18 132/68 H 94 L Room Air 09/20/24 15:49 09/20/24 15:49 09/20/24 15:49 09/20/24 15:49 09/20/24 15:49 09/20/24 15:49 Narrative Exam GEN: AOx3, able to speak full sentences HEENT: NC/AC, PERRLA, oral mucosa moist, neck supple CVS: RRR, S1-S2 present, no murmurs appreciated RESP: CTAB GI: soft,non distended, non tender, NBS MSK: able to move all 4 limbs however it was limited because of the fractures and pain. No lower extremity edema SKIN: warm and dry COSMETIC COUNSELOR: CN II-XII and Sensation grossly intact. Objective Labs 09/21/24 05:15 09/21/24 05:15 Labs: Laboratory Results - last 24 hr 09/20/24 09/20/24 03:38 04:27 WBC 8.1 RBC 3.96 L Hgb 12.9 L Hct 35.6 L MCV 90 MCH 32.6 MCHC 36.2 RDW Std Deviation 39.7 Plt Count 165 Neut % (Auto) 81 H Lymph % (Auto) 14 [place] % (Auto) 3 Eos % (Auto) 0 Baso % (Auto) 0 Neut # (Auto) 6.6 Lymph # (Auto) 1.1 [place] # (Auto) 0.2 Eos # (Auto) 0.0 Baso # (Auto) 0.0 Immature Gran # (Auto) 0.13 H Absolute Nucleated RBC 0.00 Immature Gran % 2 H Nucleated RBC % 0 Sodium 137 Potassium 4.9 D Chloride 101 Carbon Dioxide 25.2 Anion Gap 11 BUN 22 Creatinine 0.9 Estim Creat Clear Calc 62.0 eGFR > 60 BUN/Creatinine Ratio 24 H Glucose 137 H D Calculated Osmolality 279 Calcium 9.4 Corrected Calcium 9.6 Phosphorus 4.5 Magnesium 1.7 Total Bilirubin 0.6 AST 42 H ALT 76 H Alkaline Phosphatase 132 H Total Protein 7.1 Albumin 3.8 Globulin 3.3 Albumin/Globulin Ratio 1.2 Triglycerides 185 H Cholesterol 191 LDL Cholesterol, Calc 106 HDL Cholesterol 48 Cholesterol/HDL Ratio 4.0 Ur Collection Type Clean Catch Urine Color Lt-Yellow Urine Clarity Clear Urine pH 6.5 Ur Specific [place] 1.012 Urine Protein Negative Urine Glucose (UA) Negative Urine Ketones Negative Urine Blood Negative Urine Nitrite Negative Urine Bilirubin Negative Urine Urobilinogen (Auto) Negative Ur Leukocyte Esterase Negative Urine RBC 1 Urine WBC 1 Ur Squamous Epith Cells < 1 Urine Bacteria None Ur Culture Indicated? Not Indicated Quality Measures Quality Measures none Advance care planning discussed with:: patient and child Assessment & Plan Assessment Current Active Medications: Generic Name Dose Route Start Last Admin Trade Name Freq PRN Reason Stop Dose Admin Acetaminophen 650 mg 09/19/24 17:12 Acetaminophen 325 Mg Tablet PO 10/19/24 17:11 Q6H PRN Fever >100.3 or pain (1-3) Hydrocodone Bitart/Acetaminophen 1 tab 09/19/24 17:12 09/20/24 03:39 Hydrocodone/Apap 10/325 Tab PO 09/24/24 17:11 1 tab Q4H PRN Administration PAIN SCALE 4-10(Mod-Sev Albuterol/Ipratropium 3 ml 09/19/24 17:12 Albuterol/Ipratropium (Duoneb) Rt Keely 3 Ml Nebu INH 10/19/24 17:11 Q4HR PRN SHORTNESS OF BREATH OR WHEEZE Amlodipine Besylate 10 mg 09/19/24 17:30 09/20/24 08:26 Amlodipine Besylate 5 Mg Tablet PO 10/19/24 17:29 10 mg QDAY OMAR Administration Atorvastatin Calcium 10 mg 09/19/24 21:00 09/19/24 21:39 Atorvastatin Calcium 10 Mg Tablet PO 10/19/24 20:59 Not Given HS OMAR Calcium Carbonate 600 mg 09/19/24 17:45 09/20/24 08:27 Calcium Carbonate 600 Mg Tablet PO 10/19/24 17:44 600 mg QDAY OMAR Administration Enoxaparin Sodium 40 mg 09/19/24 17:30 09/20/24 08:28 Enoxaparin Sod Inj 40 Mg/0.4 Ml Syringe SC 10/03/24 17:29 40 mg QDAY OMAR Administration Losartan Potassium 25 mg 09/19/24 17:45 09/20/24 08:27 Losartan Potassium 25 Mg Tablet PO 10/19/24 17:44 25 mg QDAY OMAR Administration Mesalamine 800 mg 09/20/24 21:00 Mesalamine 400 Mg Capsule. PO 10/20/24 20:59 BID OMAR Morphine Sulfate 2 mg 09/19/24 17:12 09/20/24 10:12 Morphine Sulf Inj 10 Mg/Ml Vial IVP 09/24/24 17:11 2 mg Q4HR PRN Administration BREAKTHROUGH PAIN Ondansetron HCl 4 mg 09/19/24 17:12 Ondansetron Inj 2 Mg/Ml Inj 2 Ml IVP 10/19/24 17:11 Q6H PRN NAUSEA OR VOMITING Protocol Sennosides 1 tab 09/20/24 09:00 09/20/24 10:17 Senna Tablet PO 10/20/24 08:59 Not Given QDAY [facility] Protocol Sertraline HCl 50 mg 09/20/24 21:00 Sertraline Hcl 25 Mg Tablet PO 10/20/24 20:59 HS OMAR Vitamin D 5,000 iu 09/19/24 18:00 09/20/24 10:10 Cholecalciferol (Vitamin D3) 1,000 Iu Tablet PO 10/19/24 17:59 5,000 iu DAILY OMAR Administration Plan Summary: A 79-year-old male with past medical history significant for primary hypertension, hyperlipidemia, CAD's s/p stent, ulcerative colitis and Osteoporosis [T-score -2.6] presenting today with a chief complaint of sudden onset back pain. Follows up with field service tech Dr. Anderson and community resource officer, Dr. Trey Guadarrama. CT thoracic spine showed T12 compression fracture, 15% height reduction and severe osteopenia. Chronic osteoporotic fractures L1 and L5 and was found to have right clavicular fracture.. Patient will be admitted for treatment and management of osteoporotic compression fracture requiring IV pain medication. #Osteoporosis, T-score -2.6 #Pathological T12 compression fracture #Chronic osteoporotic L1 and L5 compression fractures Patient's was getting out of bed this morning felt a pop and excruciating 10 out of 10 pain. He had a DEXA scan a few months ago with a T-score of -2.6 CT thoracic spine showed T12 compression fracture, 15% height reduction and severe osteopenia. Chronic osteoporotic fractures L1 and L5. Plan: ? Calcium carbonate 600 Mg p.o. daily ? Vitamin D3 5000 IU p.o. daily. Upon discharge will recommend patient start on bisphosphonates - Hydrocodone 10/325 1 tab p.o. q. 4 hourly as needed for pain 4?10 ? Morphine 2 mg IV every 4 hourly as needed for breakthrough pain ? Physical therapy referral ? trolley worker referral for placement as the patient most likely will need long-term facility rehab. ##Primary hypertension #Hyperlipidemia Home medication amlodipine 10 Mg p.o. daily, losartan 25 Mg p.o. daily, levqio to 80 Mg SC every 6 months Plan: ? Resume home medication amlodipine 10 Mg p.o. daily ? Resume home medication losartan 25 Mg p.o. daily ? Started on atorvastatin 10 Mg p.o. at bedtime while in hospital #CAD s/p stents Patient was not on any antiplatelet medication at home. Follows with Dr. Trey Guadarrama #Ulcerative colitis on mesalamine Home medication mesalamine 400 Mg p.o. daily Plan: ? Resume home medication mesalamine 800 mg p.o. twice daily #Obstructive sleep apnea Patient uses a CPAP machine at night Plan: ?CPAP at night Health maintenance: Disposition: IV pain control. Pending physical therapy assessment and possible SNF placement. Diet: Cardiac Lines: pIVs GI Prophylaxis: None Thrombo Prophylaxis: Enoxaparin Code status: FULL CODE - Patient's plan and care discussed with my attending, Dr. Shireen Espitia MD Internal Medicine PGY-2 Attending Provider Attestation/Addendum I reviewed labs, imaging, EKG, home medications and prior available records. Face to face evaluation was performed by me. I have personally examined the patient and discussed assessment and plan with the IM team. I reviewed the resident note and agree with the plan with exceptions as below. Acute compression fracture of T12 vertebra Chronic compression fractures Acute right clavicle fracture Osteoporosis Crohn's disease CAD status post stent Obstructive sleep apnea Essential hypertension BPH Management of pain as needed. He is requiring IV opiates Brace for the clavicle fracture PT/OT evaluation Resume home mesalamine 800 mg twice daily Continue antihypertensive treatment and monitor BP Nightly CPAP/BiPAP
[2024-09-20] MEDS: SERTRALINE HCL 25 MG TABLET 50 MG PO (20:05)
[2024-09-20] MEDS: MESALAMINE 400 MG CAPSULE.DR 800 MG PO (20:05)
[2024-09-21] VITALS (10 sets, daily range): BP systolic 110–141; BP diastolic 60–81; PULSE 65–89; RESP 14–97; TEMP 36.1–36.4; O2SAT 93–98
[2024-09-21 05:54] LABS: Basophils % (Auto) 0 % (0-2.5); Eosinophils % (Auto) 0 % (0-10); Hematocrit 39.4 % (41.0-53.0); Hemoglobin 14.1 g/dL (13.5-16.0); Immature Granulocytes % (Auto) 2 % (0-0); Immature Granulocytes Auto 0.14 Thou/mm3 (0.00-0.00); Lymphocytes # (Auto) 2.1 Thou/mm3 (1.0-4.8); Lymphocytes % (Auto) 22 % (10-50); Mean Corpuscular HGB Conc 35.8 g/dl (31.0-37.0); Mean Corpuscular Hemoglobin 32.5 pg (25.0-35.0); Mean Corpuscular Volume 91 fL (80-100); Monocytes # (Auto) 0.7 Thou/mm3 (0.0-0.8); Monocytes % (Auto) 7 % (0-12); Neutrophils # (Auto) 6.6 Thou/mm3 (1.8-7.7); Neutrophils % (Auto) 69 % (37-80); Nucleated Red Blood Cell % 0 /100 WBC (0); Platelet Count 187 Thou/mm3 (140-440); RDW Standard Deviation 40.8 fL (35.1-43.9); Red Blood Count 4.34 Miln/mm3 (4.50-5.90); White Blood Count 9.6 Thou/mm3 (3.8-10.6)
[2024-09-21 06:28] LABS: Alanine Aminotransferase 71 U/L (10-49); Albumin, Serum 4.2 gm/dL (3.4-4.8); Albumin/Globulin Ratio 1.1 (1.2-2.2); Alkaline Phosphatase 136 U/L (46-116); Anion Gap 10 (7-16); Aspartate Amino Transferase 37 U/L (0-34); BUN/Creatinine Ratio 23 Ratio (12-20); Bilirubin,Total 0.4 mg/dL (0.3-1.2); Blood Urea Nitrogen 23 mg/dL (9-23); Calcium 9.8 mg/dL (8.3-10.6); Calcium (Corrected) 9.8 mg/dL (8.5-10.1); Carbon Dioxide 28.2 mMol/L (20.0-31.0); Chloride 100 mMol/L (98-107); Estimated Creatinine Clearance 55.8 mL/min (>60); Globulin 3.7 gm/dL (2.3-3.5); Glucose 119 mg/dL (74-106); Magnesium 1.8 mg/dL (1.6-2.6); Osmolality,Calculated 280 (275-295); Phosphorous 4.4 mg/dL (2.4-5.1); Potassium 4.3 mMol/L (3.4-5.1); Sodium 138 mMol/L (136-145); Total Protein 7.9 gm/dL (5.7-8.2); eGFR > 60 See Note
[2024-09-21] MEDS: MORPHINE SULF INJ 10 MG/ML VIAL 2 MG IVP ×2 (08:01→17:27)
[2024-09-21] MEDS: CALCIUM CARBONATE 600 MG TABLET PO (08:02)
[2024-09-21] MEDS: amLODIPine BESYLATE 5 MG TABLET 10 MG PO (08:02)
[2024-09-21] MEDS: ENOXAPARIN SOD INJ 40 MG/0.4 ML SYRINGE SC (08:03)
[2024-09-21] MEDS: LOSARTAN POTASSIUM 25 MG TABLET PO (08:03)
[2024-09-21] MEDS: SENNA TABLET 1 TAB PO (08:03)
[2024-09-21] MEDS: CHOLECALCIFEROL (Vitamin D3) 1,000 IU TABLET 5000 IU PO (08:04)
[2024-09-21] MEDS: MESALAMINE 400 MG CAPSULE.DR 800 MG PO ×2 (08:17→20:04)
--- NOTE | 2024-09-21 11:48 | ESPR_ITS ---
<Statement entered by Rubia Ham MD - 09/22/24 15:28> Patient was seen and examined by me personally. I have directly supervised and reviewed documentation by the team resident and agree with its findings with any exceptions or additional findings as below. Plan of care was discussed with the attending, Dr. Betancourt. New Team B continuing care starting today. Mr. Coronel is a 79-year-old male who presented initially on 09/20/2024 with acute onset severe back pain, was found to have acute T12 vertebral body fracture and admitted for management of intractable pain. Patient is awaiting physical therapy evaluation. Will order TSLO brace. Patient seen overall doing better, denies pain at bedside. He has not tried to ambulate yet. Will await evaluation for possible need of acute rehab. Rubia Ham, PGY-2 Documentation for date of: 09/21/24 Subjective Subjective Interval history: Patient seen and examined at bedside. Patient is pending physical therapy evaluation, TLSO brace. Otherwise patient has no current complaints, stable has no current complaints. Will continue to monitor patient Exam Vital Signs Temp Pulse Resp BP Pulse Ox O2 Del Method 97.0 F 65 18 132/75 H 93 L Room Air 09/21/24 11:43 09/21/24 11:43 09/21/24 11:43 09/21/24 11:43 09/21/24 11:43 09/21/24 07:35 Narrative Exam GEN: AOx3, able to speak full sentences HEENT: NC/AC, PERRLA, oral mucosa moist, neck supple CVS: RRR, S1-S2 present, no murmurs appreciated RESP: CTAB GI: soft,non distended, non tender, NBS MSK: able to move all 4 limbs however it was limited because of the fractures and pain. No lower extremity edema SKIN: warm and dry MANAGEMENT COORDINATOR: CN II-XII and Sensation grossly intact. Objective Labs 09/23/24 05:05 09/23/24 05:05 Labs: Laboratory Results - last 24 hr 09/21/24 05:15 WBC 9.6 RBC 4.34 L Hgb 14.1 Hct 39.4 L MCV 91 MCH 32.5 MCHC 35.8 RDW Std Deviation 40.8 Plt Count 187 Neut % (Auto) 69 Lymph % (Auto) 22 [place] % (Auto) 7 Eos % (Auto) 0 Baso % (Auto) 0 Neut # (Auto) 6.6 Lymph # (Auto) 2.1 [place] # (Auto) 0.7 Eos # (Auto) 0.0 Baso # (Auto) 0.0 Immature Gran # (Auto) 0.14 H Absolute Nucleated RBC 0.00 Immature Gran % 2 H Nucleated RBC % 0 Sodium 138 Potassium 4.3 D Chloride 100 Carbon Dioxide 28.2 Anion Gap 10 BUN 23 Creatinine 1.0 Estim Creat Clear Calc 55.8 L eGFR > 60 BUN/Creatinine Ratio 23 H Glucose 119 H Calculated Osmolality 280 Calcium 9.8 Corrected Calcium 9.8 Phosphorus 4.4 Magnesium 1.8 Total Bilirubin 0.4 AST 37 H ALT 71 H Alkaline Phosphatase 136 H Total Protein 7.9 Albumin 4.2 Globulin 3.7 H Albumin/Globulin Ratio 1.1 L Quality Measures Quality Measures none Advance care planning discussed with:: patient Assessment & Plan Assessment Current Active Medications: Generic Name Dose Route Start Last Admin Trade Name Freq PRN Reason Stop Dose Admin Acetaminophen 650 mg 09/19/24 17:12 Acetaminophen 325 Mg Tablet PO 10/19/24 17:11 Q6H PRN Fever >100.3 or pain (1-3) Hydrocodone Bitart/Acetaminophen 1 tab 09/19/24 17:12 09/20/24 03:39 Hydrocodone/Apap 10/325 Tab PO 09/24/24 17:11 1 tab Q4H PRN Administration PAIN SCALE 4-10(Mod-Sev Albuterol/Ipratropium 3 ml 09/19/24 17:12 Albuterol/Ipratropium (Duoneb) Rt Keely 3 Ml Nebu INH 10/19/24 17:11 Q4HR PRN SHORTNESS OF BREATH OR WHEEZE Amlodipine Besylate 10 mg 09/19/24 17:30 09/21/24 08:02 Amlodipine Besylate 5 Mg Tablet PO 10/19/24 17:29 10 mg QDAY OMAR Administration Atorvastatin Calcium 10 mg 09/19/24 21:00 09/20/24 20:28 Atorvastatin Calcium 10 Mg Tablet PO 10/19/24 20:59 Not Given HS OMAR Calcium Carbonate 600 mg 09/19/24 17:45 09/21/24 08:02 Calcium Carbonate 600 Mg Tablet PO 10/19/24 17:44 600 mg QDAY OMAR Administration Enoxaparin Sodium 40 mg 09/19/24 17:30 09/21/24 08:03 Enoxaparin Sod Inj 40 Mg/0.4 Ml Syringe SC 10/03/24 17:29 40 mg QDAY OMAR Administration Losartan Potassium 25 mg 09/19/24 17:45 09/21/24 08:03 Losartan Potassium 25 Mg Tablet PO 10/19/24 17:44 25 mg QDAY OMAR Administration Mesalamine 800 mg 09/20/24 21:00 09/21/24 08:17 Mesalamine 400 Mg Capsule. PO 10/20/24 20:59 800 mg BID OMAR Administration Morphine Sulfate 2 mg 09/19/24 17:12 09/21/24 08:01 Morphine Sulf Inj 10 Mg/Ml Vial IVP 09/24/24 17:11 2 mg Q4HR PRN Administration BREAKTHROUGH PAIN Ondansetron HCl 4 mg 09/19/24 17:12 Ondansetron Inj 2 Mg/Ml Inj 2 Ml IVP 10/19/24 17:11 Q6H PRN NAUSEA OR VOMITING Protocol Sennosides 1 tab 09/20/24 09:00 09/21/24 08:03 Senna Tablet PO 10/20/24 08:59 1 tab QDAY OMAR Administration Protocol Sertraline HCl 50 mg 09/20/24 21:00 09/20/24 20:05 Sertraline Hcl 25 Mg Tablet PO 10/20/24 20:59 50 mg HS OMAR Administration Vitamin D 5,000 iu 09/19/24 18:00 09/21/24 08:04 Cholecalciferol (Vitamin D3) 1,000 Iu Tablet PO 10/19/24 17:59 5,000 iu DAILY OMAR Administration Plan Summary: A 79-year-old male with past medical history significant for primary hypertension, hyperlipidemia, CAD's s/p stent, ulcerative colitis and Osteoporosis [T-score -2.6] presenting today with a chief complaint of sudden onset back pain. Follows up with beach lifeguard Dr. Anderson and hydraulic operator, Dr. Trey Guadarrama. CT thoracic spine showed T12 compression fracture, 15% height reduction and severe osteopenia. Chronic osteoporotic fractures L1 and L5 and was found to have right clavicular fracture.. Patient will be admitted for treatment and management of osteoporotic compression fracture requiring IV pain medication. #Osteoporosis, T-score -2.6 #Pathological T12 compression fracture #Chronic osteoporotic L1 and L5 compression fractures Patient's was getting out of bed this morning felt a pop and excruciating 10 out of 10 pain. He had a DEXA scan a few months ago with a T-score of -2.6 CT thoracic spine showed T12 compression fracture, 15% height reduction and severe osteopenia. Chronic osteoporotic fractures L1 and L5. Plan: ? Calcium carbonate 600 Mg p.o. daily ? Vitamin D3 5000 IU p.o. daily. Upon discharge will recommend patient start on bisphosphonates - Hydrocodone 10/325 1 tab p.o. q. 4 hourly as needed for pain 4?10 ? Morphine 2 mg IV every 4 hourly as needed for breakthrough pain ? Physical therapy referral ? garbage pick up worker referral for placement as the patient most likely will need [facility] facility rehab. #Primary hypertension #Hyperlipidemia Home medication amlodipine 10 Mg p.o. daily, losartan 25 Mg p.o. daily, levqio to 80 Mg SC every 6 months Plan: ? Resume home medication amlodipine 10 Mg p.o. daily ? Resume home medication losartan 25 Mg p.o. daily #CAD s/p stents Patient was not on any antiplatelet medication at home. Follows with Dr. Trey Guadarrama #Ulcerative colitis on mesalamine Home medication mesalamine 400 Mg p.o. daily Plan: ? Continue home medication mesalamine 800 mg p.o. twice daily #Obstructive sleep apnea Patient uses a CPAP machine at night Plan: ?CPAP at night Health maintenance: Disposition: IV pain control. Pending physical therapy assessment and possible SNF placement. Diet: Cardiac Lines: pIVs GI Prophylaxis: None Thrombo Prophylaxis: Enoxaparin Code status: FULL CODE Case discussed with Attending Dr. Betancourt and Dr. Zee PGY2. Uyen Fischer PGY1 Disclaimer: This note was dictated by speech recognition. Minor errors in pizza cook may be present due to voice recognition software. Attending Provider Attestation/Addendum Face to face evaluation was performed by me. I have personally seen and examined the patient. I discussed the assessment and plan with the entire medicine team. I reviewed available medical records, imaging studies, laboratory results. I agree with the above subjective data, objective findings, assessment and plan except as corrected by me or noted below #Osteoporosis, T-score -2.6 #Pathological T12 compression fracture #Chronic osteoporotic L1 and L5 compression fractures #History of prior T-spine fracture #Decreased appetite # History of ulcerative colitis on mesalamine at home, was recently prescribed systemic steroids for possible flare by PCP - TLSO brace, PT ambualte soon - Pain control - Might need SNF/rehab vs [facility] PT - Avoid steroids as much as possible - Will probably need repeat DEXA scan after discharge, I do recommend Prolia or similar regimen for him after discharge he should discuss with DVT prophylaxis More than > 30 minutes spent on the encounter
[2024-09-21] MEDS: SERTRALINE HCL 25 MG TABLET 50 MG PO (20:04)
[2024-09-22] VITALS (9 sets, daily range): BP systolic 119–155; BP diastolic 68–82; PULSE 64–84; RESP 16–94; TEMP 36.1–36.3; O2SAT 94–99; BMI 23.1
[2024-09-22 05:37] LABS: Basophils # (Auto) 0.1 Thou/mm3 (0.0-0.2); Basophils % (Auto) 1 % (0-2.5); Eosinophils # (Auto) 0.1 Thou/mm3 (0.0-0.5); Eosinophils % (Auto) 1 % (0-10); Hematocrit 39.4 % (41.0-53.0); Hemoglobin 14.1 g/dL (13.5-16.0); Immature Granulocytes % (Auto) 2 % (0-0); Immature Granulocytes Auto 0.18 Thou/mm3 (0.00-0.00); Lymphocytes # (Auto) 2.2 Thou/mm3 (1.0-4.8); Lymphocytes % (Auto) 24 % (10-50); Mean Corpuscular HGB Conc 35.8 g/dl (31.0-37.0); Mean Corpuscular Hemoglobin 32.6 pg (25.0-35.0); Mean Corpuscular Volume 91 fL (80-100); Monocytes # (Auto) 0.9 Thou/mm3 (0.0-0.8); Monocytes % (Auto) 9 % (0-12); Neutrophils # (Auto) 5.9 Thou/mm3 (1.8-7.7); Neutrophils % (Auto) 64 % (37-80); Nucleated Red Blood Cell % 0 /100 WBC (0); Platelet Count 175 Thou/mm3 (140-440); RDW Standard Deviation 41.1 fL (35.1-43.9); Red Blood Count 4.33 Miln/mm3 (4.50-5.90); White Blood Count 9.3 Thou/mm3 (3.8-10.6)
[2024-09-22 05:43] LABS: Alanine Aminotransferase 115 U/L (10-49); Albumin, Serum 3.8 gm/dL (3.4-4.8); Albumin/Globulin Ratio 1.1 (1.2-2.2); Alkaline Phosphatase 125 U/L (46-116); Anion Gap 9 (7-16); Aspartate Amino Transferase 71 U/L (0-34); BUN/Creatinine Ratio 23 Ratio (12-20); Bilirubin,Total 0.5 mg/dL (0.3-1.2); Blood Urea Nitrogen 21 mg/dL (9-23); Calcium 9.1 mg/dL (8.3-10.6); Calcium (Corrected) 9.3 mg/dL (8.5-10.1); Carbon Dioxide 26.9 mMol/L (20.0-31.0); Chloride 102 mMol/L (98-107); Creatinine (Component) 0.9 mg/dL (0.6-1.3); Globulin 3.4 gm/dL (2.3-3.5); Glucose 105 mg/dL (74-106); Magnesium 1.7 mg/dL (1.6-2.6); Osmolality,Calculated 278 (275-295); Phosphorous 3.9 mg/dL (2.4-5.1); Potassium 4.4 mMol/L (3.4-5.1); Sodium 138 mMol/L (136-145); Total Protein 7.2 gm/dL (5.7-8.2); eGFR > 60 See Note
--- NOTE | 2024-09-22 09:22 | PC.SS ---
Follow up note: Pt evaluation is pending. TSLO brace has been ordered by nursing staff. Pt is possible d/c to SNF. Pt is on Zoloft for depression, per Amy bedside nurse.
[2024-09-22] MEDS: MORPHINE SULF INJ 10 MG/ML VIAL 2 MG IVP (09:38)
[2024-09-22] MEDS: SENNA TABLET 1 TAB PO (09:38)
[2024-09-22] MEDS: ENOXAPARIN SOD INJ 40 MG/0.4 ML SYRINGE SC (09:38)
[2024-09-22] MEDS: LOSARTAN POTASSIUM 25 MG TABLET PO (09:39)
[2024-09-22] MEDS: CHOLECALCIFEROL (Vitamin D3) 1,000 IU TABLET 5000 IU PO (09:39)
[2024-09-22] MEDS: CALCIUM CARBONATE 600 MG TABLET PO (09:39)
[2024-09-22] MEDS: MESALAMINE 400 MG CAPSULE.DR 800 MG PO ×2 (09:39→20:01)
[2024-09-22] MEDS: amLODIPine BESYLATE 5 MG TABLET 10 MG PO (09:39)
--- NOTE | 2024-09-22 09:59 | PC.SS ---
Addendum entered by Selam Lanza 09/22/24 12:58: PASRR assessment Level II Mental Health Evaluation referral is required.? SS has sent inquiry to the local SNF using [facility]. Original Note: SS spoke to and provided her with d/c options for home or SNF. explained if pt is able to ambulate on his own with the brace then she is requesting he return home. If pt is unable to ambulate then she is requesting pt d/c to SNF. 's 1st choice is [facility] and 2nd is [place].
[2024-09-22 14:25] LABS: Alanine Aminotransferase 116 U/L (10-49); Albumin, Serum 3.8 gm/dL (3.4-4.8); Alkaline Phosphatase 127 U/L (46-116); Aspartate Amino Transferase 65 U/L (0-34); Bilirubin,Direct 0.1 mg/dL (0.0-0.3); Bilirubin,Total 0.5 mg/dL (0.3-1.2); Total Protein 7.1 gm/dL (5.7-8.2)
--- NOTE | 2024-09-22 14:29 | XR_ITS ---
Examination: Abdomen sonogram, complete Date and time of exam: September 22, 2004 1515 hours IMPRESSION: Transabdominal sonographic examination today. Technique: Multiple real-time grayscale transabdominal sonographic images of the abdomen have been obtained. Findings: Absent gallbladder Normal common bile duct 0.3 cm Pancreatic head 2.3 cm Aorta not enlarged. Liver 15.6 cm fatty liver. Normal hepatopedal portal episode. Patent IVC. Right kidney 10.8 renal cortex 2.1 cm Left kidney 11.1 cm cortex 1.7 cm Spleen not enlarged IMPRESSION: Normal common bile duct Liver normal size Fatty liver
--- NOTE | 2024-09-22 14:39 | ESPR_ITS ---
<Statement entered by Rubia Ham MD - 09/23/24 02:11> Patient was seen and examined by me personally. I have directly supervised and reviewed documentation by the team resident and agree with its findings with any exceptions or additional findings as below. Plan of care was discussed with the attending, Dr. Betancourt. Mr. Coronel is a 79-year-old male who presented initially on 09/20/2024 with acute onset severe back pain, was found to have acute T12 vertebral body fracture and admitted for management of intractable pain. Patient is awaiting physical therapy evaluation. Patient was found to have a slight uptrend in LFTs on morning labs, therefore RUQ US was ordered and GI consulted, patient has followed with Dr. Anderson for his ulcerative colitis previously. Rubia Ham, PGY-2 Documentation for date of: 09/22/24 Subjective Subjective Interval history: Patient seen and examined at bedside. Patient had TLSO brace ordered, was evaluated by physical therapy, pending recommendation. Patient has transaminitis, ordered liver ultrasound and consulted gastroenterology. Will hold Tylenol, [place], morphine and started in setting of transaminitis. Patient complains of decreased appetite, will decrease Zoloft dose and start patient on Remeron 15 mg p.o. daily starting in a.m. Patient is pending GI recommendations, anticipate discharge in the next 24 to 48 hours Exam Vital Signs Temp Pulse Resp BP Pulse Ox O2 Del Method 97 F 80 18 123/76 96 Room Air 09/22/24 12:00 09/22/24 12:00 09/22/24 12:00 09/22/24 12:00 09/22/24 12:00 09/22/24 12:00 Narrative Exam GEN: AOx3, able to speak full sentences HEENT: NC/AC, PERRLA, oral mucosa moist, neck supple CVS: RRR, S1-S2 present, no murmurs appreciated RESP: CTAB GI: soft,non distended, non tender, NBS MSK: able to move all 4 limbs however it was limited because of the fractures and pain. No lower extremity edema SKIN: warm and dry TURNER SPLITTER MACHINE OPERATOR: CN II-XII and Sensation grossly intact. Objective Labs 09/23/24 05:05 09/23/24 05:05 Labs: Laboratory Results - last 24 hr 09/22/24 09/22/24 04:42 13:55 WBC 9.3 RBC 4.33 L Hgb 14.1 Hct 39.4 L MCV 91 MCH 32.6 MCHC 35.8 RDW Std Deviation 41.1 Plt Count 175 Neut % (Auto) 64 Lymph % (Auto) 24 [place] % (Auto) 9 Eos % (Auto) 1 Baso % (Auto) 1 Neut # (Auto) 5.9 Lymph # (Auto) 2.2 [place] # (Auto) 0.9 H Eos # (Auto) 0.1 Baso # (Auto) 0.1 Immature Gran # (Auto) 0.18 H Absolute Nucleated RBC 0.00 Immature Gran % 2 H Nucleated RBC % 0 Sodium 138 Potassium 4.4 Chloride 102 Carbon Dioxide 26.9 Anion Gap 9 BUN 21 Creatinine 0.9 Estim Creat Clear Calc 62.0 eGFR > 60 BUN/Creatinine Ratio 23 H Glucose 105 Calculated Osmolality 278 Calcium 9.1 Corrected Calcium 9.3 Phosphorus 3.9 Magnesium 1.7 Total Bilirubin 0.5 0.5 Direct Bilirubin 0.1 AST 71 H 65 H ALT 115 H 116 H Alkaline Phosphatase 125 H 127 H Total Protein 7.2 7.1 Albumin 3.8 3.8 Globulin 3.4 Albumin/Globulin Ratio 1.1 L Quality Measures Quality Measures none Advance care planning discussed with:: patient Assessment & Plan Assessment Current Active Medications: Generic Name Dose Route Start Last Admin Trade Name Freq PRN Reason Stop Dose Admin Acetaminophen 650 mg 09/19/24 17:12 Acetaminophen 325 Mg Tablet PO 10/19/24 17:11 Q6H PRN Fever >100.3 or pain (1-3) Hydrocodone Bitart/Acetaminophen 1 tab 09/19/24 17:12 09/20/24 03:39 Hydrocodone/Apap 10/325 Tab PO 09/24/24 17:11 1 tab Q4H PRN Administration PAIN SCALE 4-10(Mod-Sev Albuterol/Ipratropium 3 ml 09/19/24 17:12 Albuterol/Ipratropium (Duoneb) Rt Keely 3 Ml Nebu INH 10/19/24 17:11 Q4HR PRN SHORTNESS OF BREATH OR WHEEZE Amlodipine Besylate 10 mg 09/19/24 17:30 09/22/24 09:39 Amlodipine Besylate 5 Mg Tablet PO 10/19/24 17:29 10 mg QDAY OMAR Administration Atorvastatin Calcium 10 mg 09/19/24 21:00 09/21/24 22:16 Atorvastatin Calcium 10 Mg Tablet PO 10/19/24 20:59 Not Given HS OMAR Calcium Carbonate 600 mg 09/19/24 17:45 09/22/24 09:39 Calcium Carbonate 600 Mg Tablet PO 10/19/24 17:44 600 mg QDAY OMAR Administration Enoxaparin Sodium 40 mg 09/19/24 17:30 09/22/24 09:38 Enoxaparin Sod Inj 40 Mg/0.4 Ml Syringe SC 10/03/24 17:29 40 mg QDAY OMAR Administration Losartan Potassium 25 mg 09/19/24 17:45 09/22/24 09:39 Losartan Potassium 25 Mg Tablet PO 10/19/24 17:44 25 mg QDAY OMAR Administration Mesalamine 800 mg 09/20/24 21:00 09/22/24 09:39 Mesalamine 400 Mg Capsule.Dr PO 10/20/24 20:59 800 mg BID OMAR Administration Mirtazapine 15 mg 09/23/24 09:00 Mirtazapine 15 Mg Tablet PO 10/23/24 08:59 QDAY OMAR Morphine Sulfate 2 mg 09/19/24 17:12 09/22/24 09:38 Morphine Sulf Inj 10 Mg/Ml Vial IVP 09/24/24 17:11 2 mg Q4HR PRN Administration BREAKTHROUGH PAIN Ondansetron HCl 4 mg 09/19/24 17:12 Ondansetron Inj 2 Mg/Ml Inj 2 Ml IVP 10/19/24 17:11 Q6H PRN NAUSEA OR VOMITING Protocol Sennosides 1 tab 09/20/24 09:00 09/22/24 09:38 Senna Tablet PO 10/20/24 08:59 1 tab QDAY OMAR Administration Protocol Sertraline HCl 25 mg 09/22/24 21:00 Sertraline Hcl 25 Mg Tablet PO 10/22/24 20:59 HS OMAR Vitamin D 5,000 iu 09/19/24 18:00 09/22/24 09:39 Cholecalciferol (Vitamin D3) 1,000 Iu Tablet PO 10/19/24 17:59 5,000 iu DAILY OMAR Administration Plan Summary: A 79-year-old male with past medical history significant for primary hypertension, hyperlipidemia, CAD's s/p stent, ulcerative colitis and Osteoporosis [T-score -2.6] presenting today with a chief complaint of sudden onset back pain. Follows up with vacuum worker Dr. Anderson and snow plow operator, Dr. Trey Guadarrama. CT thoracic spine showed T12 compression fracture, 15% height reduction and severe osteopenia. Chronic osteoporotic fractures L1 and L5 and was found to have right clavicular fracture.. Patient will be admitted for treatment and management of osteoporotic compression fracture requiring IV pain medication. #Osteoporosis, T-score -2.6 #Pathological T12 compression fracture #Chronic osteoporotic L1 and L5 compression fractures Patient's was getting out of bed this morning felt a pop and excruciating 10 out of 10 pain. He had a DEXA scan a few months ago with a T-score of -2.6 CT thoracic spine showed T12 compression fracture, 15% height reduction and severe osteopenia. Chronic osteoporotic fractures L1 and L5. Plan: ? Calcium carbonate 600 Mg p.o. daily ? Vitamin D3 5000 IU p.o. daily. Upon discharge will recommend patient start on bisphosphonates ? Hold morphine/N[place], will consider Oxycodone for pain, avoid acetaminophen. ? Physical therapy referral ? family preservation worker referral for placement as the patient most likely will need alf facility rehab. #Transaminitis Patient has uptrending AST ALT, patient had cholecystectomy done in the past - Ordered ultrasound abdomen - Consulted gastroenterology, appreciate recommendations - Will hold hepatotoxic medications #Primary hypertension #Hyperlipidemia Home medication amlodipine 10 Mg p.o. daily, losartan 25 Mg p.o. daily, levqio to 80 Mg SC every 6 months Plan: ? Resume home medication amlodipine 10 Mg p.o. daily ? Resume home medication losartan 25 Mg p.o. daily - Will hold atorvastatin, worsening transaminitis #CAD s/p stents Patient was not on any antiplatelet medication at home. Follows with Dr. Trey Guadarrama #Ulcerative colitis on mesalamine Home medication mesalamine 400 Mg p.o. daily Plan: ? Continue home medication mesalamine 800 mg p.o. twice daily #Depression #Poor appetite -Decreased sertraline to 25 mg at bedtime, Started on mirtazapine 15 mg daily #Obstructive sleep apnea Patient uses a CPAP machine at night Plan: ?CPAP at night Health maintenance: Diet: Cardiac Lines: pIVs GI Prophylaxis: None Thrombo Prophylaxis: Enoxaparin Code status: FULL CODE Case discussed with Attending Dr. Betancourt and Dr. Zee PGY2. Uyen Fischer PGY1 Disclaimer: This note was dictated by speech recognition. Minor errors in dump truck operator may be present due to voice recognition software. Attending Provider Attestation/Addendum Face to face evaluation was performed by me. I have personally seen and examined the patient. I discussed the assessment and plan with the entire medicine team. I reviewed available medical records, imaging studies, laboratory results. I agree with the above subjective data, objective findings, assessment and plan except as corrected by me or noted below #Osteoporosis, T-score -2.6 #Pathological T12 compression fracture Nondisplaced right clavicular fracture# #Chronic osteoporotic L1 and L5 compression fractures #History of prior T-spine fracture #Decreased appetite # History of inflammatory bowel disease?suspected to be ulcerative colitis on mesalamine at home, was recently prescribed systemic steroids for possible flare by PCP - TLSO brace, PT ambualte soon - Pain control - Might need SNF/rehab vs [facility] PT - Avoid steroids as much as possible - Will probably need repeat DEXA scan after discharge, I do recommend Prolia or similar regimen for him after discharge he should discuss with - sling, PT, pain control for right clavicular fracture DVT prophylaxis More than > 30 minutes spent on the encounter
--- NOTE | 2024-09-22 17:56 | PC.PT ---
PT approached patient at 16:45 but patient did not have the TLSO delivered yet. PT donned the [place] clavicle brace for the patient before leaving patient. Will perform the PT eval once patient has the TLSO and it is safe to work with patient.
[2024-09-22] MEDS: oxyCODONE HCL 5 MG IR TAB PO (18:51)
--- NOTE | 2024-09-22 19:56 | PD.IMCONS ---
HPI Data of Consult Requesting Physician: Ham Betancourt MD Primary Care Provider: Yoly Polo MD Consult Narrative Reason for consult: Abnormal LFTs primarily transaminitis History of present illness: 79 years old male who is known history of inflammatory bowel disease diagnosed on colonoscopy with biopsies on 11/21/2023 which showed inflammatory changes in the ascending colon descending colon and rectum Patient is doing well on mesalamine Patient also has a history of esophageal stricture and esophageal motility disorder requiring endoscopic dilatation in the past as well as esophageal motility workup done by Dr. Duffy at [place] Have been consulted for abnormal liver function test with a total bilirubin of 0.1 AST ALT 65 and 116 alk phos of 127 Liver ultrasound shows fatty liver absent gallbladder and normal CBD cc:: cc: Ham Betancourt MD Review of Systems Review of Systems Systems Reviewed: All systems reviewed, normal except as documented Past Medical History Surgical History OTHER SURGICAL HX: As in the history of present illness Meds Home Medications and Allergies Home Medications ?Medication ?Instructions ?Recorded ?Confirmed ?Type mesalamine 400 mg capsule (with 8 tab PO DAILY 01/27/19 09/19/24 History delayed release tablets inside) (Delzicol) amlodipine 5 mg tablet 10 mg PO QDAY 11/14/23 09/19/24 History cetirizine 10 mg tablet 10 mg PO AC 11/14/23 09/19/24 History losartan 25 mg tablet 25 mg PO DAILY 01/10/24 09/19/24 History inclisiran 284 mg/1.5 mL 284 mg subcut .q6mo 09/22/24 09/22/24 History subcutaneous syringe (Leqvio) Allergies Allergy/AdvReac Type Severity Reaction Status Date / Time No Known Allergies Allergy Verified 01/11/24 08:56 Exam Vital Signs Temp Pulse Resp BP Pulse Ox O2 Del Method 97 F 79 18 119/70 97 Room Air 09/22/24 16:00 09/22/24 16:00 09/22/24 16:00 09/22/24 16:00 09/22/24 16:00 09/22/24 16:00 Constitutional Comments: Alert oriented Routine Respiratory Exam Comments: Normal to auscultation Routine Abdominal Exam Comments: Soft nontender Results Labs 09/22/24 04:42 09/22/24 04:42 Labs: Short CBC 09/22/24 Range/Units 04:42 WBC 9.3 (3.8-10.6) Thou/mm3 Hgb 14.1 (13.5-16.0) g/dL Hct 39.4 L (41.0-53.0) % Plt Count 175 (140-440) Thou/mm3 BMP 09/22/24 04:42 Sodium 138 Potassium 4.4 Chloride 102 Carbon Dioxide 26.9 BUN 21 Creatinine 0.9 Glucose 105 Calcium 9.1 Liver Function 09/22/24 09/22/24 Range/Units 04:42 13:55 Total Bilirubin 0.5 0.5 (0.3-1.2) mg/dL Direct Bilirubin 0.1 (0.0-0.3) mg/dL AST 71 H 65 H (0-34) U/L ALT 115 H 116 H (10-49) U/L Alkaline Phosphatase 125 H 127 H (46-116) U/L Albumin 3.8 3.8 (3.4-4.8) gm/dL Assessment and Plan Additional Assessment & Plan Additional Plan: #transaminitis most likely related to his underlying inflammatory bowel disease however other causes of Chronic liver disease needs to be ruled out And complete workup ordered other medical problems include will follow the patient # Essential hypertension # Esophageal motility disorder # esophageal requiring endoscopic dilatation Thank you very much for the opportunity to participate in the care of this patient
[2024-09-22] MEDS: SERTRALINE HCL 25 MG TABLET PO (20:02)
[2024-09-23] VITALS (7 sets, daily range): BP systolic 122–143; BP diastolic 57–79; PULSE 65–85; RESP 16–96; TEMP 35.6–36.7; O2SAT 95–97; BMI 14.0
[2024-09-23 05:40] LABS: Basophils % (Auto) 0 % (0-2.5); Eosinophils % (Auto) 0 % (0-10); Hematocrit 39.7 % (41.0-53.0); Hemoglobin 14.1 g/dL (13.5-16.0); Immature Granulocytes % (Auto) 2 % (0-0); Immature Granulocytes Auto 0.14 Thou/mm3 (0.00-0.00); Lymphocytes # (Auto) 1.4 Thou/mm3 (1.0-4.8); Lymphocytes % (Auto) 14 % (10-50); Mean Corpuscular HGB Conc 35.5 g/dl (31.0-37.0); Mean Corpuscular Hemoglobin 32.7 pg (25.0-35.0); Mean Corpuscular Volume 92 fL (80-100); Monocytes # (Auto) 0.5 Thou/mm3 (0.0-0.8); Monocytes % (Auto) 5 % (0-12); Neutrophils # (Auto) 7.4 Thou/mm3 (1.8-7.7); Neutrophils % (Auto) 79 % (37-80); Nucleated Red Blood Cell % 0 /100 WBC (0); Platelet Count 184 Thou/mm3 (140-440); RDW Standard Deviation 41.2 fL (35.1-43.9); Red Blood Count 4.31 Miln/mm3 (4.50-5.90); White Blood Count 9.4 Thou/mm3 (3.8-10.6)
[2024-09-23 06:01] LABS: Alanine Aminotransferase 106 U/L (10-49); Albumin, Serum 3.9 gm/dL (3.4-4.8); Albumin/Globulin Ratio 1.1 (1.2-2.2); Alkaline Phosphatase 127 U/L (46-116); Anion Gap 9 (7-16); Aspartate Amino Transferase 49 U/L (0-34); BUN/Creatinine Ratio 23 Ratio (12-20); Bilirubin,Total 0.5 mg/dL (0.3-1.2); Blood Urea Nitrogen 23 mg/dL (9-23); Calcium (Corrected) 9.1 mg/dL (8.5-10.1); Carbon Dioxide 25.8 mMol/L (20.0-31.0); Chloride 101 mMol/L (98-107); Estimated Creatinine Clearance 55.8 mL/min (>60); Globulin 3.5 gm/dL (2.3-3.5); Glucose 147 mg/dL (74-106); Magnesium 1.8 mg/dL (1.6-2.6); Osmolality,Calculated 278 (275-295); Potassium 4.7 mMol/L (3.4-5.1); Sodium 136 mMol/L (136-145); Total Protein 7.4 gm/dL (5.7-8.2); eGFR > 60 See Note
[2024-09-23 06:06] LABS: Iron 78 mcg/dL (65-175); Percent Iron Saturation 27 % (20-55); Total Iron Binding Capacity 284 mcg/dL (250-425); Unsaturated Iron Binding 206 (225-295)
[2024-09-23 06:35] LABS: Hepatitis A Antibody IgM Non Reactive (Non React); Hepatitis B Core Antibody IgM Non Reactive (Non React); Hepatitis B Surface Antigen Non Reactive (Non React); Hepatitis C Antibody Non Reactive (Non React)
[2024-09-23] MEDS: oxyCODONE HCL 5 MG IR TAB PO ×2 (07:25→13:49)
--- NOTE | 2024-09-23 08:25 | PC.SS ---
Addendum entered by KANDICE Varghese 09/23/24 15:31: SS update: PT informs patient does not need SNF. Patient is aware. Recommendation for Home health, no preferred agency at this time. Patient informs his will transport home. Community resource handout provided. Bedside RN Amy updated. Addendum entered by KANDICE Varghese 09/23/24 10:51: SS update: PASRR level 2 to be closed today, per PASRR criminal justice lawyer Cornelio Alonso. Addendum entered by KANDICE Varghese 09/23/24 09:16: SS update: updated patient's , Kathi Coronel [phone], she informs they would like to wait until PT evaluation is completed to determine if patient can return home or will nee to go to a SNF. Addendum entered by KANDICE Varghese 09/23/24 08:33: SS follow up: Rozina at [facility] informs they can accept the patient at their facility when ready for d/c. Original Note: SS follow up: left a voicemail for PASRR criminal justice lawyerCornelio as Level 2 needs review for closure.
[2024-09-23] MEDS: MESALAMINE 400 MG CAPSULE.DR 800 MG PO (08:42)
[2024-09-23] MEDS: CHOLECALCIFEROL (Vitamin D3) 1,000 IU TABLET 5000 IU PO (08:42)
[2024-09-23] MEDS: SENNA TABLET 1 TAB PO (08:42)
[2024-09-23] MEDS: amLODIPine BESYLATE 5 MG TABLET 10 MG PO (08:43)
[2024-09-23] MEDS: LOSARTAN POTASSIUM 25 MG TABLET PO (08:43)
[2024-09-23] MEDS: CALCIUM CARBONATE 600 MG TABLET PO (08:43)
[2024-09-23] MEDS: MIRTAZAPINE 15 MG TABLET PO (08:44)
--- NOTE | 2024-09-23 11:45 | PD.IMPROG ---
Documentation for date of: 09/23/24 Subjective Subjective Interval history: Downward trending AST ALT down to AST of 49 ALT of 106 Case discussed with internal medicine team Okay to discharge patient home to be followed by me as an outpatient Exam Vital Signs Temp Pulse Resp BP Pulse Ox O2 Del Method 96.0 F L 85 18 132/77 H 97 Room Air 09/23/24 08:00 09/23/24 08:43 09/23/24 08:00 09/23/24 08:43 09/23/24 08:00 09/23/24 08:00 Objective Labs 09/23/24 05:05 09/23/24 05:05 Labs: Laboratory Results - last 24 hr 09/22/24 09/23/24 13:55 05:05 WBC 9.4 RBC 4.31 L Hgb 14.1 Hct 39.7 L MCV 92 MCH 32.7 MCHC 35.5 RDW Std Deviation 41.2 Plt Count 184 Neut % (Auto) 79 Lymph % (Auto) 14 Jera[place] % (Auto) 5 Eos % (Auto) 0 Baso % (Auto) 0 Neut # (Auto) 7.4 Lymph # (Auto) 1.4 Jerauld # (Auto) 0.5 Eos # (Auto) 0.0 Baso # (Auto) 0.0 Immature Gran # (Auto) 0.14 H Absolute Nucleated RBC 0.00 Immature Gran % 2 H Nucleated RBC % 0 Sodium 136 Potassium 4.7 Chloride 101 Carbon Dioxide 25.8 Anion Gap 9 BUN 23 Creatinine 1.0 Estim Creat Clear Calc 55.8 L eGFR > 60 BUN/Creatinine Ratio 23 H Glucose 147 H Calculated Osmolality 278 Calcium 9.0 Corrected Calcium 9.1 Magnesium 1.8 Iron 78 TIBC 284 Iron Saturation 27 Unsat Iron Binding 206 L Total Bilirubin 0.5 0.5 Direct Bilirubin 0.1 AST 65 H 49 H ALT 116 H 106 H Alkaline Phosphatase 127 H 127 H Total Protein 7.1 7.4 Albumin 3.8 3.9 Globulin 3.5 Albumin/Globulin Ratio 1.1 L Tumor Marker AFP 2.50 Hepatitis A IgM Ab Non Reactive Hep Bs Antigen Non Reactive Hep B Core IgM Ab Non Reactive Hepatitis C Antibody Non Reactive Impressions Impression: Abnormal LFTs secondary to underlying inflammatory bowel disease improving Okay to discharge patient home to be followed by me as an outpatient Complete workup ordered for underlying chronic active hepatitis Assessment & Plan A&P Narrative #transaminitis most likely related to his underlying inflammatory bowel disease however other causes of Chronic liver disease needs to be ruled out And complete workup ordered other medical problems include will follow the patient # Essential hypertension # Esophageal motility disorder # esophageal requiring endoscopic dilatation Thank you very much for the opportunity to participate in the care of this patient Time Spent With Patient Time: Total time spent is greater than 50% in coordination of care (as documented) at patient's floor/unit and/or counseling patient:
--- NOTE | 2024-09-23 15:13 | ESDS_ITS ---
Planned Discharge Date 09/23/24 DS: Providers Provider Date of admission: 09/19/24 17:12 Primary care physician: Yoly Polo MD Admitting Provider: Da Iyer MD Attending Provider on Admission: Alejandra Leary MD Consults: 09/19/24 15:08 Referral Physical Therapy Stat Comment: Physician Instructions: 09/19/24 18:06 Referral Discharge Planning Routine Comment: 09/22/24 14:30 Consult to Gastroenterology Routine Comment: Transaminitis, UC Consulting Provider: Zack Anderson Attending Provider on DC: Alejandra Leary MD Discharging Provider: Alejandra Leary MD Anticipated date of discharge: 09/23/24 DS: Diagnosis Problem List Completed Was Problem List Reviewed/Reconciled?: Yes Hospital Course Hospital Course Hospital course: Hospital course: Mr. Coronel is a 79-year-old male with past medical history primary hypertension, hyperlipidemia, CAD's s/p stent, ulcerative colitis and Osteoporosis [T-score -2.6] presenting today with a chief complaint of sudden onset back pain. Patient CT scan of thoracic spine showed T12 compression fracture, 15% height reduction and severe osteopenia and chronic osteoporotic fractures L1 and L5. Patient was also found to have nondisplaced fracture of right clavicle. Patient was started on calcium supplementation, vitamin D supplementation and was referred to physical therapy. Patient was given IV pain medication for pain management, eventually with the progression of hospital course patient was found to have worsening transaminitis, gastroenterology was consulted and all hepatotoxic medications were held, transaminitis improved and ultrasound abdomen showed normal common bile duct, normal liver size and fatty liver. Patient to follow-up outpatient with gastroenterology to follow-up on pending labs. Patient had TLSO brace ordered, physical therapy recommended discharge home with home health for physical therapy. Further plan is to disc harge patient home with home health on oxycodone for pain management, patient to continue calcium and vitamin D supplementation, patient's sertraline dose changed to 25 mg at bedtime and started on mirtazapine 15 mg daily for appetite stimulation and management of depression. Patient to continue all other home medications including mesalamine. Patient is stable for discharge, responded well to hospital treatment. 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 Leary. Uyen Fischer PGY1 Disclaimer: This note was dictated by speech recognition. Minor errors in composition professor may be present due to voice recognition software. Time Spent with Patient Time attestation: Total time spent providing and/or coordinating discharge services: Time spent: Greater than 30 minutes Exam Vital Signs Temp Pulse Resp BP Pulse Ox O2 Del Method 96.0 F L 65 16 143/76 H 97 Room Air 09/23/24 12:00 09/23/24 12:00 09/23/24 12:00 09/23/24 12:00 09/23/24 12:00 09/23/24 12:00 Narrative Exam GEN: AOx3, able to speak full sentences HEENT: NC/AC, PERRLA, oral mucosa moist, neck supple CVS: RRR, S1-S2 present, no murmurs appreciated RESP: CTAB GI: soft,non distended, non tender, NBS MSK: able to move all 4 limbs however it was limited because of the fractures and pain. No lower extremity edema SKIN: warm and dry DYE FEEDER: CN II-XII and Sensation grossly intact. Discharge Plan Plan Patient Disposition: Home w/HOME HEALTH Patient condition on transfer: Stable Prescriptions/Referrals Prescriptions/Med Rec: New cholecalciferol (vitamin D3) 125 mcg (5,000 unit) capsule 125 mcg PO QDAY 30 Days Qty: 30 0RF calcium carbonate 600 mg calcium (1,500 mg) tablet 600 mg PO QDAY Qty: 30 0RF mirtazapine 15 mg tablet 15 mg PO QDAY 30 Days Qty: 30 0RF oxycodone 5 mg Tablet 5 mg PO Q6HR MDD 4 tablets PRN (Reason: Pain Scale 4-10(Mod-Sev) 5 Days Qty: 20 0RF sertraline 25 mg tablet 25 mg PO HS Qty: 30 0RF Continued cetirizine 10 mg tablet 10 mg PO AC Patient Comments: TAKE 1 TABLET BY MOUTH DAILY amlodipine 5 mg tablet 10 mg PO QDAY Patient Comments: GENERIC FOR NORVASC- TAKE 1 TABLET BY MOUTH EVERY DAY losartan 25 mg tablet 25 mg PO DAILY Patient Comments: TAKE 1 TABLET BY MOUTH EVERY DAY Leqvio 284 mg/1.5 mL syringe 284 mg subcut .q6mo Changed mesalamine [Delzicol] 400 mg Capsule (With Del Rel Tablets) 800 mg PO BID Qty: 30 0RF Discontinued sertraline 50 mg Tablet 50 mg PO QDAY Referrals: Zack Anderson MD [Physician] - Yoly Polo MD [Primary Care Provider] - Patient/Caregiver Discharge Instructions Discharge Activity: as per physical therapy Other Discharge Activity Instructions:: Follow-up outpatient with primary care physician, consider referral to endocrinology for osteoporosis. We have changed your Seroquel dose to 25 mg at bedtime, start taking mirtazapine 15 mg daily in the morning for stimulation of appetite, optimize therapy with primary care physician outpatient Start taking vitamin D daily, check vitamin D levels outpatient before discontinuing, continue taking calcium carbonate daily. Use Oxycodone as needed for moderate to severe pain. Continue all other home medications, Return to Emergency Department if symptoms return or worsen. Continue physical therapy at home, use TLSO brace. Follow-up with gastroenterology outpatient in 3 to 4 weeks, to follow-up on pending labs. Education Materials: Anatomy of a Normal Spine, Back Fracture (Compression Fracture), How Bones Heal Print Language: Afghan Stand Alone Forms: Breanne Award Info., Patient Portal Info Letter Discharge Order Discharge Orders: Discharge (Routine); Ordered 09/23/24 Ordered By: Uyen Fischer Quality Discharge Quality Measures VTE prophylaxis Attestestation MD Attestation I attest that I was physically present for the evaluation, physical examination, lab and imaging review of the patient with the residents. I discussed the case with the residents and agree with the findings and plans of care as documented above. Alejandra Leary MD
--- NOTE | 2024-09-24 09:01 | PC.CC ---
Addendum entered by Sanya Coronel RN 09/24/24 09:35: Referred to [facility], start of care 09-25-24. Original Note: Complete Home Health packet sent via [employer], awaiting responses at this time.
[2024-09-24 09:30] VITALS: PULSE 61; RESP 18; RESP 20; RESP 97; O2SAT 97
[2024-09-29 06:53] LABS: ANA Screen, IFA NEGATIVE (NEGATIVE); Alpha-1-Antitrypsin* 150 mg/dL (83-199); Ceruloplasmin* 25 mg/dL (14-30); Copper* 103 mcg/dL (70-175); Mitochondrial Ab NEGATIVE (NEGATIVE)
== END 2024-09-23 17:47 | disposition home health service (06) | DRG 543 ==
LOC: SERX 16:12 → SERHOLD 17:46 → S3SX 09-22 05:47
PROVIDERS: Specialist; Admitting Provider Student in an Organized Health Care Education/Training Program; Emergency Provider Emergency Medicine; PCP Family Medicine; Visit Provider Student in an Organized Health Care Education/Training Program
DX: M80.08XA Age-related osteoporosis with current pathological fracture, vertebra(e), initial encounter for fracture (principal); K51.90 Ulcerative colitis, unspecified, without complications; I10 Essential (primary) hypertension; E78.5 Hyperlipidemia, unspecified; I25.10 Atherosclerotic heart disease of native coronary artery without angina pectoris; S42.001A Fracture of unspecified part of right clavicle, initial encounter for closed fracture; G47.33 Obstructive sleep apnea (adult) (pediatric); F32.A Depression, unspecified; G89.29 Other chronic pain; K76.0 Fatty (change of) liver, not elsewhere classified; N40.0 Benign prostatic hyperplasia without lower urinary tract symptoms; K22.4 Dyskinesia of esophagus; Z79.899 Other long term (current) drug therapy; Z87.891 Personal history of nicotine dependence; Z90.49 Acquired absence of other specified parts of digestive tract; Z95.5 Presence of coronary angioplasty implant and graft; Z99.81 Dependence on supplemental oxygen
CPT/HCPCS: 36415; 72128; 72131; 73000; 76700; 80053; 80061; 80074; 80076; 81001; 82103; 82105; 82390; 82525; 83540; 83550; 83735; 84100; 85025; 86038; 86255; 96374; 96375; 97162; 99285; A4565; J1650; J2270; J2405; A9270

== ENCOUNTER 2025-01-29 16:08 | Inpatient (IN) | payer MEDICARE, BC, SELFPAY ==
[2025-01-29 16:09] VITALS: BMI 24.2
[2025-01-29 16:22] VITALS: BP 152/82; PULSE 107; RESP 20; TEMP 36.7; O2SAT 96
--- NOTE | 2025-01-29 17:15 | EDNOTE_ITS ---
ED General RME/HPI General Chief complaint: General Adult/Misc Complain Stated complaint: SENT BY PMD FOR EVAL KIDNEY FAILURE, POSS DEHYDRAT Time Seen by Provider: 01/29/25 16:59 Arrival date/time: 01/29/25 16:08 RME / HPI RME / HPI narrative: 79-year-old male patient with significant history of CAD, status post stents, hypercholesterolemia, hypertension, chronic back pain, osteoporosis, status post kyphoplasty, came in for evaluation regarding possible SAGRARIO. Patient went to PCP today for poor appetite, not drinking not eating normal for the last several weeks. Patient denies any abdominal pain denies any chest pain denies any di arrhea constipation fever. Patient told me that he only urinated at least twice a day due to not drinking a lot of fluids. Currently taking Gravity for chronic back pain. Laboratory workup was done today and was noted to have a creatinine of 3.5. Related Data Home Medications ?Medication ?Instructions ?Recorded ?Confirmed amlodipine 5 mg tablet 10 mg PO QDAY 11/14/2301/29 Held on 01/29/25. Instructions: only on losartan cetirizine 10 mg tablet 10 mg PO AC 11/14/23 5 losartan 25 mg tablet 25 mg PO DAILY 01/10/2401/15 inclisiran 284 mg/1.5 mL 284 mg subcut .q6mo 09/22/24 01/29/25 subcutaneous syringe (Leqvio) Previous Rx's ?Medication ?Instructions ?Recorded calcium carbonate 600 mg PO QDAY #30 tabs 07/15 Held on 01/29/25. Instructions: on a multivitamin mesalamine 400 mg capsule (with 800 mg (2 x 400 mg) PO BID #30 ea 09/23/24 delayed release tablets inside) (Delzicol) sertraline 25 mg tablet 25 mg PO HS #30 tabs 5 Allergies Allergy/AdvReac Type Severity Reaction Status Date / Time No Known Allergies Allergy Verified 01/29/25 16:11 Review of Systems Review of Systems Narrative Review of Systems: Review of system reviewed and within normal limits except mentioned in HPI ED Exam Narrative Physical exam: VITAL SIGNS: Reviewed. GENERAL APPEARANCE: Alert and interactive, follows commands, no acute distress, HEAD AND FACE: Non-traumatic. ENT: PERRL, pink conjunctivitis, eyelid no trauma, Mucous membrane dry NECK: Supple, nontender, no nuchal rigidity. CHEST: No tenderness, no crepitus, no paradoxical movement, no retractions. LUNGS: Clear, well ventilated, symmetric, no rales, no wheezing, no ronchi, no stridor, good breath sounds bilaterally. HEART: Regular rate, regular rhythm, no murmur, no gallops. ABDOMEN: Soft, positive bowel sounds, nondistended, no guarding, nontender, no rebound, no masses, RECTAL: Deferred. GENITAL: Deferred. NEUROLOGICAL: Gross motor function intact sensory function intact, Appropriate for age. MUSCULOSKELETAL: low back nontender, full range of motion. EXTREMITIES: Nontender, full range of motion. SKIN: Color pink, dry, no rash, no lacerations, no abrasions, no contusions. LYMPHATICS: Deferred. Course Quality Measures none Orders Category Date Time Status COVID-19 Screening Questionnaire NOW Care 01/29/25 17:21 Active Decision to Admit [address] 01/29/25 17:21 Completed Sodium Chloride 0.9% 1000 ml [Ns] 1,000 ml Med 01/29/25 17:13 Discontinued IV 999 mls/hr Vital Signs Vital signs: Vital Signs Temperature 98.1 F 01/29/25 16:22 Pulse Rate 107 H 01/29/25 16:22 Respiratory Rate 20 01/29/25 16:22 Blood Pressure 152/82 H 01/29/25 16:22 Pulse Oximetry (%) 96 01/29/25 16:22 Oxygen Delivery Method Room Air 01/29/25 16:22 Discharge Plan Plan Patient Disposition: Admit Acute Care w/in Hospital Problem List Clinical Impression: SAGRARIO (acute kidney injury), Dehydration MDM Narrative MDM hospital course (for use when minimal MDM required): 79-year-old male patient with significant history of CAD, status post stents, hypercholesterolemia, hypertension, chronic back pain, osteoporosis, status post kyphoplasty, came in for evaluation regarding possible SAGRARIO. Patient went to PCP today for poor appetite, not drinking not eating normal for the last several weeks. Patient denies any abdominal pain denies any chest pain denies any diarrhea constipation fever. Patient told me that he only urinated at least twice a day due to not drinking a lot of fluids. Currently taking Gravity for chronic back pain. Laboratory workup was done today and was noted to have a creatinine of 3.5. Reviewed patient's workup that was done earlier today and showed creatinine of 3.7, BUN of 35. Ultrasound of the renal, showed Bilateral renal cortical thinning Mild right and moderate left renal scar formation Patient received IV fluids, EKG showed normal sinus rhythm, ventricular rate of 71 bpm, no ST segment elevation or depression noted. Spoke with hospitalist, who admitted the patient. Medication Administration(s) Medication Administration History Acetaminophen (Acetaminophen 325 Mg Tablet) 650 mg PO Q6H PRN PRN Reason: PAIN 1-3 OR FEVER > 101 Stop: 02/28/25 18:09 Dronabinol (Dronabinol 2.5 Mg Capsule) 2.5 mg PO BIDAC [facility] Stop: 03/01/25 07:29 Heparin Sodium (Porcine) (Heparin Sod Inj 5000 Unit/Ml Vial) 5,000 unit SC Q12HR OMAR Stop: 02/12/25 20:59 Last Admin: 01/29/25 21:07 Dose: 5,000 unit Documented By: LIAM Co-signed By: NATHEN Lactated Ringer's (Lactated Ringers) 1,000 mls @ 100 mls/hr IV .Q10H OMAR Stop: 01/30/25 04:35 Last Admin: 01/29/25 18:54 Dose: 100 mls/hr Documented By: JESSI Mesalamine (Mesalamine 400 Mg Capsule.Dr) 800 mg PO BID [facility] Stop: 02/28/25 20:59 Last Admin: 01/29/25 21:06 Dose: Not Given Documented By: LIAM Non-Admin Reason: Medication Not Available Morphine Sulfate (Morphine Sulf Inj 4 Mg/Ml Vial) 2 mg IVP Q2H PRN PRN Reason: PAIN SCALE 7-10 (Severe Stop: 02/03/25 18:09 Ondansetron HCl (Ondansetron Inj 2 Mg/Ml Inj 2 Ml) 4 mg IVP Q6H PRN; Protocol PRN Reason: NAUSEA OR VOMITING Stop: 02/28/25 18:09 Last Admin: 01/29/25 22:15 Dose: 4 mg Documented By: LIAM Oxycodone/Acetaminophen (Oxycodone/Apap 5/325 Tablet) 1 tab PO Q6H PRN PRN Reason: PAIN SCALE 4-6 (Moderate Stop: 02/03/25 18:09 Sertraline HCl (Sertraline Hcl 25 Mg Tablet) 25 mg PO HS OMAR Stop: 02/28/25 20:59 Last Admin: 01/29/25 21:07 Dose: 25 mg Documented By: LIAM Discontinued Medications Acetaminophen (Acetaminophen 325 Mg Tablet) 650 mg PO Q6H PRN PRN Reason: Fever >101.5 Stop: 02/28/25 18:09 Acetaminophen (Acetaminophen 325 Mg Tablet) 650 mg PO Q6H PRN PRN Reason: PAIN SCALE 1-3 (mild Stop: 02/28/25 18:09 Heparin Sodium (Porcine) (Heparin Sod Inj 5000 Unit/Ml Vial) 5,000 unit SC Q8HR OMAR Stop: 02/12/25 21:59 Sodium Chloride (Ns) 1,000 mls @ 999 mls/hr IV .Q1H1M ONE Stop: 01/29/25 18:13 Last Infusion: 01/29/25 18:22 Dose: Infused Documented By: Admin: 01/29/25 17:22 Dose: 999 mls/hr Documented By: JESSI Magnesium Sulfate/Dextrose (Magnesium Sulfate Ivpb) 1 gm in 100 mls @ 100 mls/hr IV X1 ONE Stop: 01/29/25 22:33 Last Admin: 01/29/25 22:16 Dose: 100 mls/hr Documented By: LIAM Diagnosis Differential Diagnosis ED Complaint MDM: Dehydration, SAGRARIO, acute on chronic kidney injury Diagnoses ruled out and/or further discussions: Dehydration, SAGRARIO
[2025-01-29] MEDS: SODIUM CHLORIDE 0.9% 1000 ML 1,000 ML 999 ML IV (17:22)
[2025-01-29 18:13] VITALS: BP 164/81; PULSE 79; RESP 18; TEMP 36.7; O2SAT 94
--- NOTE | 2025-01-29 18:26 | PD.RESHP ---
Documentation for date of: 01/29/25 [facility] History of Present Illness History of present illness: 79-year-old male with a history of CAD with history of 1 stent placement in 2004, ulcerative colitis following Dr. Anderson, hypertension, chronic back pain, and severe osteoporosis, who presents for evaluation of possible SAGRARIO after his PCP noted a creatinine of 3.5?mg/dL today. His current illness began several weeks ago with a pronounced loss of appetite and decreased oral intake, reporting he is primarily only drinking water or Ensure and has noticed only urinating once a day as a result; he denies fever, abdominal pain, chest pain, or changes in bowel habits. These symptoms appear to correlate with the initiation of teriparatide (Forteo) injections about one month ago, a medication chosen by his specialist over alendronate due to his history of ulcerative colitis; while the first 1 to 2 weeks were fine, the poor appetite worsened afterward. The patient reports an 8-pound weight loss in the last month and has a history of previous hospital visits for SAGRARIO. ED course: Initial vitals include temperature 98.1, BP 152/82, heart rate 107, respirate 20, saturating well in room air. Notable labs include WBC 8, hemoglobin 11.2, sodium 140, potassium 4.7, BUN 35, creatinine 3.7, eGFR 18, corrected calcium 11, normal LFTs except alkaline phosphatase elevated at 136, total protein 9.9. Patient was started on 1 L sodium chloride bolus and 1 L lactated ringer given over 100 cc an hour Past medical history: As stated above. Past surgical history: Cholecystectomy, Allergies: No known drug allergies Family history: Noncontributory. Social history: 1-2 alcoholic beverages per day, no smoking, no illicit drug use. Patient admitted for SAGRARIO workup. Exam Vital Signs Temp Pulse Resp BP Pulse Ox O2 Del Method 98.1 F 79 18 164/81 H 94 L Room Air 01/29/25 18:13 01/29/25 18:13 01/29/25 18:13 01/29/25 18:13 01/29/25 18:13 01/29/25 18:13 Narrative Exam GENERAL: Alert and oriented x 3, in no acute distress, conversing well HEENT Non-traumatic. PERRL, pink conjunctivitis, eyelid no trauma, Mucous membrane dry NECK: Supple, nontender, no nuchal rigidity. CHEST: No tenderness, no crepitus, no paradoxical movement, no retractions. LUNGS: Clear, well ventilated, symmetric, no rales, no wheezing, no ronchi, no stridor, good breath sounds bilaterally. HEART: Regular rate, regular rhythm, no murmur, no gallops. ABDOMEN: Soft, positive bowel sounds, nondistended, no guarding, nontender, no rebound, no masses, NEURO: No focal neurologic deficits, moving all 4 limbs EXTREMITIES: Nontender, full range of motion, no pedal edema SKIN: Chronic dermatological skin lesions on face/upper chest/back, color pink, dry, no rash, no lacerations, no abrasions, no contusions. Results: Labs 01/30/25 05:32 01/30/25 05:32 Quality Measures Quality Measures VTE prophylaxis Advance care planning discussed with:: patient Medications Home Medications and Allergies Home Medications ?Medication ?Instructions ?Recorded ?Confirmed ?Type amlodipine 5 mg tablet 10 mg PO QDAY 11/14/23 01/29/25 History Held on 01/29/25. Instructions: only on losartan cetirizine 10 mg tablet 10 mg PO AC 11/14/23 01/29/25 History losartan 25 mg tablet 25 mg PO DAILY 01/10/24 01/29/25 History inclisiran 284 mg/1.5 mL 284 mg subcut .q6mo 09/22/24 01/29/25 History subcutaneous syringe (Leqvio) Allergies Allergy/AdvReac Type Severity Reaction Status Date / Time No Known Allergies Allergy Verified 01/29/25 16:11 Visit Medications Acetaminophen (Acetaminophen 325 Mg Tablet) 650 mg PO Q6H PRN PRN Reason: PAIN 1-3 OR FEVER > 101 Stop: 02/28/25 18:09 Heparin Sodium (Porcine) (Heparin Sod Inj 5000 Unit/Ml Vial) 5,000 unit SC Q8HR OMAR Stop: 02/12/25 21:59 Mesalamine (Mesalamine 400 Mg Capsule.Dr) 800 mg PO BID OMAR Stop: 02/28/25 20:59 Morphine Sulfate (Morphine Sulf Inj 4 Mg/Ml Vial) 2 mg IVP Q2H PRN PRN Reason: PAIN SCALE 7-10 (Severe Stop: 02/03/25 18:09 Ondansetron HCl (Ondansetron Inj 2 Mg/Ml Inj 2 Ml) 4 mg IVP Q6H PRN; Protocol PRN Reason: NAUSEA OR VOMITING Stop: 02/28/25 18:09 Oxycodone/Acetaminophen (Oxycodone/Apap 5/325 Tablet) 1 tab PO Q6H PRN PRN Reason: PAIN SCALE 4-6 (Moderate Stop: 02/03/25 18:09 Sertraline HCl (Sertraline Hcl 25 Mg Tablet) 25 mg PO HS OMAR Stop: 02/28/25 20:59 Discontinued Medications Acetaminophen (Acetaminophen 325 Mg Tablet) 650 mg PO Q6H PRN PRN Reason: Fever >101.5 Stop: 02/28/25 18:09 Acetaminophen (Acetaminophen 325 Mg Tablet) 650 mg PO Q6H PRN PRN Reason: PAIN SCALE 1-3 (mild Stop: 02/28/25 18:09 Sodium Chloride (Ns) 1,000 mls @ 999 mls/hr IV .Q1H1M ONE Stop: 01/29/25 18:13 Last Admin: 01/29/25 17:22 Dose: 999 mls/hr Assessment & Plan Plan 79-year-old male with a history of CAD with history of 1 stent placement in 2004, ulcerative colitis sees Dr. Anderson, hypertension, chronic back pain, and severe osteoporosis admitted for SAGRARIO workup. #SAGRARIO DDx: Prerenal versus intrarenal versus postrenal Creatinine on presentation 2.7, baseline creatinine is around 1.0 eGFR 16, BUN 35 Likely 2/2 to vol depletion. Monitor for response to IV fluids Patient received 1 L sodium chloride bolus in ED Patient has been taking teriparatide for the past month which may be contributing to the SAGRARIO Plan ? Lactated Ringer's 1 L running at 100 mL an hour ?Renal ultrasound ordered for tonight ? Recheck labs in a.m. - UA ordered - STOP teriparatide - HOLD Losartan - Renally dose meds - Avoid nephrotoxic meds - Consider nephro consult if Cr continues to increase despite IVF #Loss of appetite Since starting the medication teriparatide in the past month in Plan ? Dronabinol 2.5 mg twice daily ?RD consult #History of osteoporosis #Kyphoplasty Patient has been prescribed teriparatide in the past month and has been taking this daily Patient was never started on alendronate due to history of ulcerative colitis and risk of worsening GI symptoms according to the specialist he saw Plan ?Physiotherapy consult ?Will look to start him on alendronate when appropriate #Essential HTN Home med losartan 25mg daily Plan - Monitor BP and restart med when appropriate #History of back pain Patient takes [place] 10/325 every 6 hours as needed for history of back pain Plan ? Analgesia as needed #History of ulcerative colitis Follows Dr. Anderson ? Resumed home mesalamine 800 mg twice daily #History of depression/anxiety ? Resumed Zoloft 25 mg daily Health Maintenance: Diet: Renal diet GI prophylaxis: None DVT prophylaxis: Heparin 5000 twice daily Antibiotics: None CODE STATUS: Full Disposition: Med/tele Case discussed with my attending Dr. Leary , and senior resident, Dr. Deja Nance MD PGY-1 Attending Provider Attestation/Addendum I attest that I was physically present for the evaluation, physical examination, lab and imaging review of the patient with the residents. I discussed the case with the residents and agree with the findings and plans of care as documented above. After examination of the patient and review of the clinical data I feel that this patient needs admission to the hospital for further treatment/evaluation. Alejandra Leary MD
--- NOTE | 2025-01-29 18:50 | XR_ITS ---
Examination: Retroperitoneal ultrasound, complete Technique: Multiple high resolution grayscale images of the retroperitoneum obtained, including kidneys and bladder. Exam date and time: January 29, 2025, 1932 hours INDICATIONS: Acute renal insufficiency and laboratory examination today FINDINGS: Right kidney 10.6 cm renal cortex 1.6 cm Left kidney 11.1 cm renal cortex 1.3 cm Mild right and moderate left renal scar formation, no hydronephrosis No bladder mass or bladder calculi Bladder prevoid volume 489 cc Prostate not enlarged volume 18.7 cc no prostate nodules IMPRESSION: Bilateral renal cortical thinning Mild right and moderate left renal scar formation
[2025-01-29] MEDS: RINGERS LACTATED 1000 ML 1,000 ML 100 ML IV (18:54)
[2025-01-29 20:46] VITALS: PULSE 78; BMI 24.3
[2025-01-29] MEDS: SERTRALINE HCL 25 MG TABLET PO (21:07)
[2025-01-29] MEDS: HEPARIN SOD INJ 5000 UNIT/ML VIAL SC (21:07)
--- NOTE | 2025-01-29 21:33 | EKG_ITS ---
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
--- NOTE | 2025-01-29 21:34 | PC.NURSE ---
DR SAINI AT BEDSIDE TO ASSES PATIENT, PT NOW IN NSR, DR SAINI STATES TO PLACE ORDERS FOR EKG STAT, NO PATIENT COMPLAINTS AT THIS TIME.
[2025-01-29] MEDS: ONDANSETRON INJ 2 MG/ML INJ 2 ML 4 MG IVP (22:15)
[2025-01-30] VITALS (8 sets, daily range): BP systolic 108–143; BP diastolic 55–84; PULSE 60–93; RESP 16–18; TEMP 36.2–36.7; O2SAT 92–96; BMI 24.3
[2025-01-30 06:19] LABS: Basophils # (Auto) 0.0 Thou/mm3 (0.0-0.2); Basophils % (Auto) 0 % (0-2.5); Eosinophils # (Auto) 0.1 Thou/mm3 (0.0-0.5); Eosinophils % (Auto) 3 % (0-10); Hematocrit 23.1 % (41.0-53.0); Immature Granulocytes Auto 0.08 Thou/mm3 (0.00-0.00); Lymphocytes # (Auto) 1.3 Thou/mm3 (1.0-4.8); Lymphocytes % (Auto) 26 % (10-50); Mean Corpuscular HGB Conc 33.3 g/dl (31.0-37.0); Mean Corpuscular Hemoglobin 32.2 pg (25.0-35.0); Mean Corpuscular Volume 97 fL (80-100); Monocytes # (Auto) 0.6 Thou/mm3 (0.0-0.8); Monocytes % (Auto) 12 % (0-12); Neutrophils # (Auto) 2.9 Thou/mm3 (1.8-7.7); Neutrophils % (Auto) 58 % (37-80); Nucleated Red Blood Cell # 0.00 Thou/mm3 (0.00-0.00); Nucleated Red Blood Cell % 0 /100 WBC (0); Platelet Count 160 Thou/mm3 (140-440); RDW Standard Deviation 42.7 fL (35.1-43.9); Red Blood Count 2.39 Miln/mm3 (4.50-5.90); White Blood Count 5.1 Thou/mm3 (3.8-10.6)
[2025-01-30 06:28] LABS: Hemoglobin 7.7 g/dL (13.5-16.0)
[2025-01-30 06:45] LABS: Alanine Aminotransferase 12 U/L (10-49); Albumin, Serum 3.4 gm/dL (3.4-4.8); Albumin/Globulin Ratio 1.0 (1.2-2.2); Alkaline Phosphatase 97 U/L (46-116); Anion Gap 10 (7-16); Aspartate Amino Transferase 19 U/L (0-34); BUN/Creatinine Ratio 10 Ratio (12-20); Bilirubin,Total 0.3 mg/dL (0.3-1.2); Blood Urea Nitrogen 32 mg/dL (9-23); Calcium 9.4 mg/dL (8.3-10.6); Calcium (Corrected) 9.9 mg/dL (8.5-10.1); Carbon Dioxide 24.2 mMol/L (20.0-31.0); Cardiac Risk Estimate 6.3 RATIO (4.0-6.7); Chloride 108 mMol/L (98-107); Cholesterol 138 mg/dL (132-200); Creatinine (Component) 3.3 mg/dL (0.6-1.3); Estimated Creatinine Clearance 16.9 mL/min (>60); Globulin 3.4 gm/dL (2.3-3.5); Glucose 94 mg/dL (74-106); HDL Cholesterol 22 mg/dL (40-60); LDL Cholesterol,Calculated 78 mg/dL (0-130); Magnesium 1.8 mg/dL (1.6-2.6); Osmolality,Calculated 290 (275-295); Phosphorous 4.6 mg/dL (2.4-5.1); Potassium 4.8 mMol/L (3.4-5.1); Sodium 142 mMol/L (136-145); Thyroid Stimulating Hormone 1.01 uIU/mL (0.55-4.78); Total Protein 6.8 gm/dL (5.7-8.2); Triglycerides 188 mg/dL (30-150); eGFR 19 See Note
--- NOTE | 2025-01-30 08:44 | PC.SS ---
Follow up note: Consulting Neuro.
[2025-01-30] MEDS: HEPARIN SOD INJ 5000 UNIT/ML VIAL SC (08:55)
[2025-01-30 09:26] LABS: Creatine Kinase 30 U/L (34-171)
[2025-01-30] MEDS: MESALAMINE 400 MG CAPSULE.DR 800 MG PO ×2 (10:01→20:16)
[2025-01-30 10:17] LABS: Collection Type, Urine Clean Catch; Squamous Epithelial Cell,Urine 0 /hpf (0-5)
[2025-01-30 10:30] LABS: Bilirubin,Urine Negative (Negative); Blood,Urine Negative (Negative); Clarity,Urine Clear (Clear/Hazy); Color,Urine Colorless (Lt Yel-Yel); Glucose, Urine Negative (Negative); Ketones,Urine Negative (Negative); Leukocyte Esterase,Urine Negative (Negative); Nitrite,Urine Negative (Negative); PH,Urine 5.5 (5.0-7.0); Protein,Urine Negative (Neg - Trace); RBC,Urine 1 /hpf (0-3); Specific Gravity,Urine 1.009 (1.001-1.035); Urobilinogen,Urine Negative mg/dL (0.0-1.0); WBC,Urine < 1 /hpf (0-5)
[2025-01-30 10:43] LABS: Chloride,Urine Random 80.4 mMol/L (55.0-125.0); Potassium,Urine Random 33 mMol/L (12-62); Protein Total, Random Urine 89 mg/dL (1-14); Sodium,Urine Random 75.9 mMol/L (20.0-110.0)
--- NOTE | 2025-01-30 11:12 | PD.RESCONSUL ---
HPI Data of Consult Consult date: 01/30/25 Requesting Physician: Cesar Dodge MD Admitting Provider: Alejandra Leary MD Attending Provider: Cesar Dodge MD Primary Care Provider: Kelsy Eubanks NP Consult Narrative Reason for consult: SAGRARIO/hypercalcemia History of present illness: 79-year-old male with history of CAD s/p stent (2004), hypertension, ulcerative colitis (follows Dr. Anderson), severe osteoporosis, and chronic back pain admitted for evaluation of acute kidney injury. Baseline creatinine around 1.0, now elevated to 3.7 on admission. Patient reports several weeks of poor appetite and decreased oral intake, mainly drinking water or Ensure, and urinating only once daily. He denies fever, abdominal pain, chest pain, or changes in bowel habits. Symptoms started shortly after starting teriparatide (Forteo) about a month ago. Reports 8-lb weight loss in the past month. No recent contrast exposure, NSAID use, or nephrotoxic agents. Received 1 L NS bolus and 1 L LR in ED with improvement in creatinine to 3.3 mg/dL. Calcium initially 11.0 now 9.9. 01/30/2025: Seen today at bedside, alert and oriented ?3, reports feeling weak with poor appetite but denies SOB, chest pain, nausea, or flank pain. Oral intake remains poor. Urinating small amounts. cc:: cc: Cesar Dodge MD Exam Vital Signs Temp Pulse Resp BP Pulse Ox O2 Del Method 97.1 F 78 16 117/55 L 96 Room Air 01/30/25 07:21 01/30/25 08:00 01/30/25 07:21 01/30/25 07:21 01/30/25 07:21 01/30/25 07:21 Narrative Exam General: Awake, conversant, mild fatigue. HEENT: Mucous membranes mildly dry. Neck: No JVD. Cardiac: Regular rate and rhythm, no murmurs. Lungs: Clear to auscultation bilaterally. Abdomen: Soft, non-tender, nondistended, +BS. Extremities: No edema. Neuro: Non-focal, moves all extremities. Skin: Warm, dry, no rash. Results Labs 02/01/25 05:06 02/01/25 05:06 Labs: Short CBC 01/30/25 Range/Units 05:32 WBC 5.1 (3.8-10.6) Thou/mm3 Hgb 7.7 L D (13.5-16.0) g/dL Hct 23.1 L (41.0-53.0) % Plt Count 160 D (140-440) Thou/mm3 BMP 01/30/25 05:32 Sodium 142 Potassium 4.8 Chloride 108 H Carbon Dioxide 24.2 BUN 32 H Creatinine 3.3 H Glucose 94 Calcium 9.4 D Cardiac Enzymes 01/30/25 Range/Units 05:32 Total Creatine Kinase 30 L (34-171) U/L Liver Function 01/30/25 Range/Units 05:32 Total Bilirubin 0.3 (0.3-1.2) mg/dL AST 19 (0-34) U/L ALT 12 (10-49) U/L Alkaline Phosphatase 97 D (46-116) U/L Albumin 3.4 D (3.4-4.8) gm/dL Urine 01/30/25 Range/Units 10:00 Urine Color Colorless A (Lt Yel-Yel) Urine Clarity Clear (Clear/Hazy) Urine pH 5.5 (5.0-7.0) Ur Specific [place] 1.009 (1.001-1.035) Urine Protein Negative (Neg - Trace) Urine Glucose (UA) Negative (Negative) Quality Measures Quality Measures VTE prophylaxis Advance care planning discussed with:: patient Medications Home Medications and Allergies Home Medications ?Medication ?Instructions ?Recorded ?Confirmed ?Type amlodipine 5 mg tablet 10 mg PO QDAY 11/14/23 01/29/25 History Held on 01/29/25. Instructions: only on losartan cetirizine 10 mg tablet 10 mg PO AC 11/14/23 01/29/25 History losartan 25 mg tablet 25 mg PO DAILY 01/10/24 01/29/25 History inclisiran 284 mg/1.5 mL 284 mg subcut .q6mo 09/22/24 01/29/25 History subcutaneous syringe (Leqvio) Allergies Allergy/AdvReac Type Severity Reaction Status Date / Time No Known Allergies Allergy Verified 01/29/25 16:11 Visit Medications Acetaminophen (Acetaminophen 325 Mg Tablet) 650 mg PO Q6H PRN PRN Reason: PAIN 1-3 OR FEVER > 101 Stop: 02/28/25 18:09 Dronabinol (Dronabinol 2.5 Mg Capsule) 2.5 mg PO BIDAC [facility] Stop: 03/01/25 07:29 Last Admin: 01/30/25 07:39 Dose: 2.5 mg Heparin Sodium (Porcine) (Heparin Sod Inj 5000 Unit/Ml Vial) 5,000 unit SC Q12HR OMAR Stop: 02/12/25 20:59 Last Admin: 01/30/25 08:55 Dose: 5,000 unit Lactated Ringer's (Lactated Ringers) 1,000 mls @ 75 mls/hr IV .[id number] [facility] Stop: 03/01/25 10:23 Mesalamine (Mesalamine 400 Mg Capsule.Dr) 800 mg PO BID OMAR Stop: 02/28/25 20:59 Last Admin: 01/30/25 10:01 Dose: 800 mg Morphine Sulfate (Morphine Sulf Inj 4 Mg/Ml Vial) 2 mg IVP Q2H PRN PRN Reason: PAIN SCALE 7-10 (Severe Stop: 02/03/25 18:09 Ondansetron HCl (Ondansetron Inj 2 Mg/Ml Inj 2 Ml) 4 mg IVP Q6H PRN; Protocol PRN Reason: NAUSEA OR VOMITING Stop: 02/28/25 18:09 Last Admin: 01/29/25 22:15 Dose: 4 mg Oxycodone/Acetaminophen (Oxycodone/Apap 5/325 Tablet) 1 tab PO Q6H PRN PRN Reason: PAIN SCALE 4-6 (Moderate Stop: 02/03/25 18:09 Sertraline HCl (Sertraline Hcl 25 Mg Tablet) 25 mg PO HS [facility] Stop: 02/28/25 20:59 Last Admin: 01/29/25 21:07 Dose: 25 mg Discontinued Medications Acetaminophen (Acetaminophen 325 Mg Tablet) 650 mg PO Q6H PRN PRN Reason: Fever >101.5 Stop: 02/28/25 18:09 Acetaminophen (Acetaminophen 325 Mg Tablet) 650 mg PO Q6H PRN PRN Reason: PAIN SCALE 1-3 (mild Stop: 02/28/25 18:09 Heparin Sodium (Porcine) (Heparin Sod Inj 5000 Unit/Ml Vial) 5,000 unit SC Q8HR [facility] Stop: 02/12/25 21:59 Sodium Chloride (Ns) 1,000 mls @ 999 mls/hr IV .Q1H1M ONE Stop: 01/29/25 18:13 Last Infusion: 01/29/25 18:22 Dose: Infused Lactated Ringer's (Lactated Ringers) 1,000 mls @ 100 mls/hr IV .Q10H OMAR Stop: 01/30/25 04:35 Last Admin: 01/29/25 18:54 Dose: 100 mls/hr Magnesium Sulfate/Dextrose (Magnesium Sulfate Ivpb) 1 gm in 100 mls @ 100 mls/hr IV X1 ONE Stop: 01/29/25 22:33 Last Admin: 01/29/25 22:16 Dose: 100 mls/hr Assessment & Plan Plan 79-year-old male with CKD-3 baseline, now with SAGRARIO likely prerenal secondary to volume depletion and poor intake, possibly worsened by teriparatide-induced hypercalcemia. No evidence of obstruction or intrinsic renal process. Improving with fluids. # SAGRARIO # SAGRARIO on CKD? Likely prerenal etiology due to dehydration and Forteo-related hypercalcemia; improving with IVF. Plan: Continue LR 75 mL/hr for now Hold Losartan, NSAIDs, and nephrotoxins. Trend BMP daily Strict I&O and daily weights. If Cr worsens -> will consider obtaining more workup (FeNa/FeUrea, urine osmolality, and urine eosinophils) # CKD Imaging and prior data show bilateral cortical thinning and renal scarring, consistent with chronic kidney disease likely secondary to longstanding hypertension and vascular disease. Plan: Educate patient regarding CKD precautions (avoid NSAIDs, contrast, dehydration). Maintain renal-friendly diet and follow up with outpatient nephrology for CKD management. BP and glycemic control long chain quiller tender. # Hypercalcemia (resolved) Mild on admission (11.0), normalized after fluids and stopping teriparatide. Plan: Hold calcium/Vit D supplements. Repeat Ca, Phos next AM. Ordered PTH, Vit D. # Poor appetite / weight loss Likely secondary to teriparatide. Plan: Stop teriparatide permanently. Continue dronabinol # Hypertension Currently normotensive Plan: Continue to hold Losartan until renal recovery. # Osteoporosis History of Forteo use with adverse effects. Plan: Avoid bisphosphonates during SAGRARIO. ----- Plan discussed with attending physician Dr. Sandhya Chin MD PGY-1 Internal Medicine Attending Provider Attestation/Addendum Patient seen and examined with resident physician Dr. Chin. Note reviewed, agree with findings and recommendations. Patient admitted with SAGRARIO and noted to have hypercalcemia probably related to Forteo. Agree with IV fluids. Creatinine tad better today. Thank you Cesar for allowing me to participate in the care of Mr. Luna
[2025-01-30 11:43] LABS: Parathyroid Hormone Intact 10.1 pg/ml (18.5-88.0)
--- NOTE | 2025-01-30 11:43 | PC.SS ---
SS met with patient regarding d/c plan. Pt is alert/oriented. Pt was admitted for SAGRARIO Pt confirmed demographic and contact information is correct on facesheet. Pt resides with . Pt utilizes a 4 wheel with seat, rollator walker. Pt is ok with all ADLs. Patient?s pharmacy of choice is [facility]. Pt named his , Kathi Coronel medical decision maker if he is unable. SS provided verbal options for d/c to home or SNF. Patient?s choice is to return home upon d/c. Pt states he not diabetic and is not on dialysis. Pt followed up with PCP yesterday. will provide transportation home. D/C plan: Return home Next of Kin: Kathi Coronel, , phone# [phone] PCP: Dr. Jm Polo from [facility] Address: Correct on facesheet
[2025-01-30] MEDS: RINGERS LACTATED 1000 ML 1,000 ML 75 ML IV (12:00)
[2025-01-30 12:04] LABS: Vitamin D 25 Hydroxy Total 55.4 ng/mL (7.3-40.2)
[2025-01-30 12:24] LABS: Hematocrit 24.2 % (41.0-53.0)
[2025-01-30 12:31] LABS: Hemoglobin 8.2 g/dL (13.5-16.0)
[2025-01-30] MEDS: EPOETIN ALFA-EPBX INJ 10,000 UNIT/ML VIAL (ESRD) 10000 UNIT SC (13:55)
[2025-01-30] MEDS: ferumoxytoL (NON-ESRD) 510 MG in SODIUM CHLORIDE 0.9% 100 ML 234 MG IV (13:55)
--- NOTE | 2025-01-30 13:55 | ESPR_ITS ---
<Statement entered by Zaid Short MD - 01/30/25 17:56> Patient seen and assessed in hospital bed denies having any concerning symptoms at this time. Nephrology is consulted for acute renal failure etiology at this time likely intrarenal versus prerenal as patient's BUN/creatinine is less than 10. Nephrology is recommending continuing IV fluid and monitoring kidney function. Patient's hypercalcemia is improving with IV fluids, will follow-up on PTH and vitamin D levels. Will continue monitoring the patient for any acute changes but expect discharge within the next 24 to 48 hours. I have personally seen and examined the patient. I agree with the resident's assessment and plan as documented below. Zaid Short DO PGY-2 Internal Medicine - [facility] Documentation for date of: 01/30/25 Subjective Subjective Interval history: Patient seen today. No acute overnight events. Patient feels better today compared to yesterday. Tolerated breakfast well without any nausea or vomiting. Encouraged to drink more fluids. Not complaining of any pain, shortness of breath, abdominal pain, nausea/vomiting. Exam Vital Signs Temp Pulse Resp BP Pulse Ox O2 Del Method 97.1 F 81 17 143/84 H 96 Room Air 01/30/25 11:49 01/30/25 12:00 01/30/25 11:49 01/30/25 11:49 01/30/25 11:49 01/30/25 11:49 Narrative Exam General: Awake, conversant, mild fatigue, alert and oriented x 3 HEENT: Mucous membranes mildly dry. EOMI. PERRL. Neck supple. Cardiac: Regular rate and rhythm, S1+S2, no murmurs/rubs/gallops Lungs: Clear to auscultation bilaterally, no wheezes/crackles Abdomen: Soft, non-tender, nondistended, +BS. Extremities: No edema. Neuro: Non-focal, moves all extremities. Skin: Warm, dry, no rash. Objective Labs 02/01/25 05:06 02/01/25 05:06 Labs: Laboratory Results - last 24 hr 01/30/25 01/30/25 01/30/25 05:32 10:00 10:00 WBC 5.1 RBC 2.39 L Hgb 7.7 L D Hct 23.1 L MCV 97 MCH 32.2 MCHC 33.3 RDW Std Deviation 42.7 Plt Count 160 D Neut % (Auto) 58 Lymph % (Auto) 26 [place] % (Auto) 12 Eos % (Auto) 3 Baso % (Auto) 0 Neut # (Auto) 2.9 Lymph # (Auto) 1.3 [place] # (Auto) 0.6 Eos # (Auto) 0.1 Baso # (Auto) 0.0 Immature Gran # (Auto) 0.08 H Absolute Nucleated RBC 0.00 Immature Gran % 2 H Nucleated RBC % 0 Sodium 142 Potassium 4.8 Chloride 108 H Carbon Dioxide 24.2 Anion Gap 10 BUN 32 H Creatinine 3.3 H Estim Creat Clear Calc 16.9 L eGFR 19 L BUN/Creatinine Ratio 10 L Glucose 94 Calculated Osmolality 290 Calcium 9.4 D Corrected Calcium 9.9 Phosphorus 4.6 Magnesium 1.8 Total Bilirubin 0.3 AST 19 ALT 12 Alkaline Phosphatase 97 D Total Creatine Kinase 30 L Total Protein 6.8 Albumin 3.4 D Globulin 3.4 Albumin/Globulin Ratio 1.0 L Triglycerides 188 H Cholesterol 138 LDL Cholesterol, Calc 78 HDL Cholesterol 22 L Cholesterol/HDL Ratio 6.3 25-OH Vitamin D Total 55.4 H TSH 1.01 PTH Intact 10.1 L Ur Collection Type Clean Catch Urine Color Colorless A Urine Clarity Clear Urine pH 5.5 Ur Specific [place] 1.009 Urine Protein Negative Urine Glucose (UA) Negative Urine Ketones Negative Urine Blood Negative Urine Nitrite Negative Urine Bilirubin Negative Urine Urobilinogen (Auto) Negative Ur Leukocyte Esterase Negative Urine RBC 1 Urine WBC < 1 Ur Squamous Epith Cells 0 Urine Bacteria None U Random Total Protein 89 H Cancelled Ur Random Sodium 75.9 Ur Random Potassium Ur Random Chloride 01/30/25 01/30/25 01/30/25 10:00 10:00 11:55 WBC RBC Hgb 8.2 L Hct 24.2 L MCV MCH MCHC RDW Std Deviation Plt Count Neut % (Auto) Lymph % (Auto) [place] % (Auto) Eos % (Auto) Baso % (Auto) Neut # (Auto) Lymph # (Auto) [place] # (Auto) Eos # (Auto) Baso # (Auto) Immature Gran # (Auto) Absolute Nucleated RBC Immature Gran % Nucleated RBC % Sodium Potassium Chloride Carbon Dioxide Anion Gap BUN Creatinine Estim Creat Clear Calc eGFR BUN/Creatinine Ratio Glucose Calculated Osmolality Calcium Corrected Calcium Phosphorus Magnesium Total Bilirubin AST ALT Alkaline Phosphatase Total Creatine Kinase Total Protein Albumin Globulin Albumin/Globulin Ratio Triglycerides Cholesterol LDL Cholesterol, Calc HDL Cholesterol Cholesterol/HDL Ratio 25-OH Vitamin D Total TSH PTH Intact Ur Collection Type Urine Color Urine Clarity Urine pH Ur Specific [place] Urine Protein Urine Glucose (UA) Urine Ketones Urine Blood Urine Nitrite Urine Bilirubin Urine Urobilinogen (Auto) Ur Leukocyte Esterase Urine RBC Urine WBC Ur Squamous Epith Cells Urine Bacteria U Random Total Protein Ur Random Sodium Cancelled Ur Random Potassium 33 Cancelled Ur Random Chloride 80.4 Quality Measures Quality Measures VTE prophylaxis Advance care planning discussed with:: patient Assessment & Plan Assessment Current Active Medications: Generic Name Dose Route Start Last Admin Trade Name Freq PRN Reason Stop Dose Admin Acetaminophen 650 mg 01/29/25 18:18 Acetaminophen 325 Mg Tablet PO 02/28/25 18:09 Q6H PRN PAIN 1-3 OR FEVER > 101 Dronabinol 2.5 mg 01/30/25 07:30 01/30/25 07:39 Dronabinol 2.5 Mg Capsule PO 03/01/25 07:29 2.5 mg BIDAC OMAR Administration Heparin Sodium (Porcine) 5,000 unit 01/29/25 21:00 01/30/25 08:55 Heparin Sod Inj 5000 Unit/Ml Vial SC 02/12/25 20:59 5,000 unit Q12HR OMAR Administration Lactated Ringer's 1,000 mls @ 75 mls/hr 01/30/25 10:24 01/30/25 12:00 Lactated Ringers IV 03/01/25 10:23 75 mls/hr .[id number] OMAR Administration Mesalamine 800 mg 01/29/25 21:00 01/30/25 10:01 Mesalamine 400 Mg Capsule.Dr PO 02/28/25 20:59 800 mg BID OMAR Administration Morphine Sulfate 2 mg 01/29/25 18:10 Morphine Sulf Inj 4 Mg/Ml Vial IVP 02/03/25 18:09 Q2H PRN PAIN SCALE 7-10 (Severe Ondansetron HCl 4 mg 01/29/25 18:10 01/29/25 22:15 Ondansetron Inj 2 Mg/Ml Inj 2 Ml IVP 02/28/25 18:09 4 mg Q6H PRN Administration NAUSEA OR VOMITING Protocol Oxycodone/Acetaminophen 1 tab 01/29/25 18:10 Oxycodone/Apap 5/325 Tablet PO 02/03/25 18:09 Q6H PRN PAIN SCALE 4-6 (Moderate Sertraline HCl 25 mg 01/29/25 21:00 01/29/25 21:07 Sertraline Hcl 25 Mg Tablet PO 02/28/25 20:59 25 mg HS OMAR Administration Plan 79-year-old male with a history of CAD with history of 1 stent placement in 2004, ulcerative colitis sees Dr. Anderson, hypertension, chronic back pain, and severe osteoporosis admitted for SAGRARIO workup. #SAGRARIO #?CKD DDx: Prerenal versus intrarenal versus postrenal Creatinine on presentation 3.7, baseline creatinine is around 1.0 UA clear Urine electrolytes sodium 75 9, total protein 89, potassium 33 Patient has been taking teriparatide for the past month which may be contributing to the S[place]RARIO Renal ultrasound performed 01/29 showed no hydronephrosis, bilateral renal cortical thinning After 2 L of fluid yesterday patient's creatinine improved to 3.3 Which showed mild responsiveness Thought at this time is that it could be intrarenal, will wait on nephrology's recommendation Plan: ?Nephrology consulted, Dr. Arthur, follow recs ?Lactated Ringer's 2 L running at 100 mL an hour - STOP teriparatide - HOLD Losartan - Renally dose meds - Avoid nephrotoxic meds ?Strict SARAH's and daily weights #Loss of appetite Since starting the medication teriparatide in the past month in Plan ? Dronabinol 2.5 mg twice daily ?RD consult, Ensure Plus ordered #History of osteoporosis #Kyphoplasty Patient has been prescribed teriparatide in the past month and has been taking this daily Patient was never started on alendronate due to history of ulcerative colitis and risk of worsening GI symptoms according to the specialist he saw Bone density performed 08/04/2024 showed osteopenia based on hip measurements however no T-score was mentioned Plan ?Physiotherapy consult ?Avoid bisphosphonates during S[place]RARIO # Hypercalcemia (resolved) Mild on admission (11.0), normalized after fluids and stopping teriparatide. Plan: - Hold calcium/Vit D supplements. - Repeat Ca, Phos next AM. - Ordered PTH, Vit D. #Essential HTN Home med losartan 25mg daily Plan - Monitor BP and restart med when appropriate #History of back pain Patient takes [place] 10/325 every 6 hours as needed for history of back pain Plan ? Analgesia as needed #History of ulcerative colitis Follows Dr. Anderson ? Resumed home mesalamine 800 mg twice daily #History of depression/anxiety ? Resumed Zoloft 25 mg daily Health Maintenance: Diet: Renal diet GI prophylaxis: None DVT prophylaxis: Heparin 5000 twice daily Antibiotics: None CODE STATUS: Full Disposition: Med/tele Case discussed with my attending Dr. Dodge, and senior resident, Dr. Deja Nance MD PGY-1 Attending Provider Attestation/Addendum I have examined the patient, reviewed labs and imaging findings, discussed the case with the resident(s), and reviewed entered orders. I agree with the plan of care as outlined in this note. Dr. Echo MD
--- NOTE | 2025-01-30 15:20 | PC.PT ---
PT eval only. Patient is I with transfers and ambulation with walker.
[2025-01-30 17:44] LABS: Albumin, Serum 3.3 gm/dL (3.4-4.8); Anion Gap 9 (7-16); BUN/Creatinine Ratio 10 Ratio (12-20); Blood Urea Nitrogen 31 mg/dL (9-23); Calcium 9.4 mg/dL (8.3-10.6); Calcium (Corrected) 10.0 mg/dL (8.5-10.1); Carbon Dioxide 25.3 mMol/L (20.0-31.0); Chloride 106 mMol/L (98-107); Creatinine (Component) 3.2 mg/dL (0.6-1.3); Estimated Creatinine Clearance 17.4 mL/min (>60); Glucose 118 mg/dL (74-106); Osmolality,Calculated 286 (275-295); Phosphorous 3.7 mg/dL (2.4-5.1); Potassium 4.7 mMol/L (3.4-5.1); Sodium 140 mMol/L (136-145); eGFR 19 See Note
[2025-01-30] MEDS: RINGERS LACTATED 1000 ML 1,000 ML 100 ML IV (17:50)
[2025-01-30] MEDS: SERTRALINE HCL 25 MG TABLET PO (20:20)
[2025-01-31] VITALS (7 sets, daily range): BP systolic 121–139; BP diastolic 56–80; PULSE 62–79; RESP 16–20; TEMP 36.2–36.9; O2SAT 92–96
[2025-01-31] MEDS: RINGERS LACTATED 1000 ML 1,000 ML 100 ML IV (00:31)
[2025-01-31 01:02] LABS: Creatinine,Random Urine 44 mg/dL (30-125)
[2025-01-31 06:04] LABS: Basophils # (Auto) 0.0 Thou/mm3 (0.0-0.2); Basophils % (Auto) 1 % (0-2.5); Eosinophils # (Auto) 0.1 Thou/mm3 (0.0-0.5); Eosinophils % (Auto) 3 % (0-10); Hematocrit 23.8 % (41.0-53.0); Immature Granulocytes Auto 0.07 Thou/mm3 (0.00-0.00); Lymphocytes # (Auto) 1.1 Thou/mm3 (1.0-4.8); Lymphocytes % (Auto) 25 % (10-50); Mean Corpuscular HGB Conc 34.5 g/dl (31.0-37.0); Mean Corpuscular Hemoglobin 32.7 pg (25.0-35.0); Mean Corpuscular Volume 95 fL (80-100); Monocytes # (Auto) 0.5 Thou/mm3 (0.0-0.8); Monocytes % (Auto) 11 % (0-12); Neutrophils # (Auto) 2.6 Thou/mm3 (1.8-7.7); Neutrophils % (Auto) 59 % (37-80); Nucleated Red Blood Cell # 0.00 Thou/mm3 (0.00-0.00); Nucleated Red Blood Cell % 0 /100 WBC (0); Platelet Count 159 Thou/mm3 (140-440); RDW Standard Deviation 41.4 fL (35.1-43.9); Red Blood Count 2.51 Miln/mm3 (4.50-5.90); White Blood Count 4.3 Thou/mm3 (3.8-10.6)
[2025-01-31 06:07] LABS: Hemoglobin 8.2 g/dL (13.5-16.0)
[2025-01-31 06:29] LABS: Alanine Aminotransferase 12 U/L (10-49); Albumin, Serum 3.4 gm/dL (3.4-4.8); Albumin/Globulin Ratio 1.0 (1.2-2.2); Alkaline Phosphatase 95 U/L (46-116); Anion Gap 10 (7-16); Aspartate Amino Transferase 19 U/L (0-34); BUN/Creatinine Ratio 10 Ratio (12-20); Bilirubin,Total 0.3 mg/dL (0.3-1.2); Blood Urea Nitrogen 30 mg/dL (9-23); Calcium 9.7 mg/dL (8.3-10.6); Calcium (Corrected) 10.2 mg/dL (8.5-10.1); Carbon Dioxide 24.1 mMol/L (20.0-31.0); Chloride 107 mMol/L (98-107); Creatinine (Component) 3.1 mg/dL (0.6-1.3); Estimated Creatinine Clearance 18.0 mL/min (>60); Globulin 3.5 gm/dL (2.3-3.5); Glucose 93 mg/dL (74-106); Osmolality,Calculated 287 (275-295); Potassium 4.5 mMol/L (3.4-5.1); Sodium 141 mMol/L (136-145); Total Protein 6.9 gm/dL (5.7-8.2); eGFR 20 See Note
[2025-01-31] MEDS: HEPARIN SOD INJ 5000 UNIT/ML VIAL SC (08:17)
[2025-01-31] MEDS: MESALAMINE 400 MG CAPSULE.DR 800 MG PO ×2 (08:18→20:40)
--- NOTE | 2025-01-31 11:11 | ESPR_ITS ---
<Statement entered by Kingsley Diaz MD - 02/01/25 12:43> I have discussed and was present for the essential components of the history, physical examination, diagnosis, and treatment plan with the resident. I agree with the patient's care as documented by the resident and amended herein by me. Kingsley Diaz MD FACP. Documentation for date of: 01/31/25 Subjective Subjective Interval history: Patient seen today. No acute overnight events. Patient feels better today compared to yesterday. Tolerated meals well without any nausea or vomiting. Encouraged to drink more fluids. Not complaining of any pain, shortness of breath, abdominal pain, nausea/vomiting. Exam Vital Signs Temp Pulse Resp BP Pulse Ox O2 Del Method 97.8 F 67 16 130/66 96 Room Air 01/31/25 08:00 01/31/25 08:00 01/31/25 08:00 01/31/25 08:00 01/31/25 08:00 01/31/25 08:00 Narrative Exam General: Awake, conversant, mild fatigue, alert and oriented x 3 HEENT: Mucous membranes mildly dry. EOMI. PERRL. Neck supple. Cardiac: Regular rate and rhythm, S1+S2, no murmurs/rubs/gallops Lungs: Clear to auscultation bilaterally, no wheezes/crackles Abdomen: Soft, non-tender, nondistended, +BS. Extremities: No edema. Neuro: Non-focal, moves all extremities. Skin: Warm, dry, no rash. Objective Labs 01/31/25 04:40 01/31/25 04:40 Labs: Laboratory Results - last 24 hr 01/30/25 01/30/25 01/30/25 00:00 05:32 11:55 WBC RBC Hgb 8.2 L Hct 24.2 L MCV MCH MCHC RDW Std Deviation Plt Count Neut % (Auto) Lymph % (Auto) [place] % (Auto) Eos % (Auto) Baso % (Auto) Neut # (Auto) Lymph # (Auto) [place] # (Auto) Eos # (Auto) Baso # (Auto) Immature Gran # (Auto) Absolute Nucleated RBC Immature Gran % Nucleated RBC % Sodium Potassium Chloride Carbon Dioxide Anion Gap BUN Creatinine Estim Creat Clear Calc eGFR BUN/Creatinine Ratio Glucose Calculated Osmolality Calcium Corrected Calcium Phosphorus Total Bilirubin AST ALT Alkaline Phosphatase Total Protein Albumin Globulin Albumin/Globulin Ratio 25-OH Vitamin D Total 55.4 H PTH Intact 10.1 L Ur Random Creatinine 44 01/30/25 01/31/25 16:40 04:40 WBC 4.3 RBC 2.51 L Hgb 8.2 L Hct 23.8 L MCV 95 MCH 32.7 MCHC 34.5 RDW Std Deviation 41.4 Plt Count 159 Neut % (Auto) 59 Lymph % (Auto) 25 [place] % (Auto) 11 Eos % (Auto) 3 Baso % (Auto) 1 Neut # (Auto) 2.6 Lymph # (Auto) 1.1 [place] # (Auto) 0.5 Eos # (Auto) 0.1 Baso # (Auto) 0.0 Immature Gran # (Auto) 0.07 H Absolute Nucleated RBC 0.00 Immature Gran % 2 H Nucleated RBC % 0 Sodium 140 141 Potassium 4.7 4.5 Chloride 106 107 Carbon Dioxide 25.3 24.1 Anion Gap 9 10 BUN 31 H 30 H Creatinine 3.2 H 3.1 H Estim Creat Clear Calc 17.4 L 18.0 L eGFR 19 L 20 L BUN/Creatinine Ratio 10 L 10 L Glucose 118 H 93 Calculated Osmolality 286 287 Calcium 9.4 9.7 Corrected Calcium 10.0 10.2 H Phosphorus 3.7 Total Bilirubin 0.3 AST 19 ALT 12 Alkaline Phosphatase 95 Total Protein 6.9 Albumin 3.3 L 3.4 Globulin 3.5 Albumin/Globulin Ratio 1.0 L 25-OH Vitamin D Total PTH Intact Ur Random Creatinine Quality Measures Quality Measures VTE prophylaxis Advance care planning discussed with:: patient Assessment & Plan Assessment Current Active Medications: Generic Name Dose Route Start Last Admin Trade Name Jonas PRN Reason Stop Dose Admin Acetaminophen 650 mg 01/29/25 18:18 Acetaminophen 325 Mg Tablet PO 02/28/25 18:09 Q6H PRN PAIN 1-3 OR FEVER > 101 Dronabinol 2.5 mg 01/30/25 07:30 01/31/25 08:18 Dronabinol 2.5 Mg Capsule PO 03/01/25 07:29 2.5 mg BIDAC OMAR Administration Heparin Sodium (Porcine) 5,000 unit 01/29/25 21:00 01/31/25 08:17 Heparin Sod Inj 5000 Unit/Ml Vial SC 02/12/25 20:59 5,000 unit Q12HR OMAR Administration Lactated Ringer's 1,000 mls @ 100 mls/hr 01/30/25 16:23 01/31/25 00:31 Lactated Ringers IV 01/31/25 12:22 100 mls/hr .Q10H OMAR Administration Mesalamine 800 mg 01/29/25 21:00 01/31/25 08:18 Mesalamine 400 Mg Capsule. PO 02/28/25 20:59 800 mg BID OMAR Administration Morphine Sulfate 2 mg 01/29/25 18:10 Morphine Sulf Inj 4 Mg/Ml Vial IVP 02/03/25 18:09 Q2H PRN PAIN SCALE 7-10 (Severe Ondansetron HCl 4 mg 01/29/25 18:10 01/29/25 22:15 Ondansetron Inj 2 Mg/Ml Inj 2 Ml IVP 02/28/25 18:09 4 mg Q6H PRN Administration NAUSEA OR VOMITING Protocol Oxycodone/Acetaminophen 1 tab 01/29/25 18:10 Oxycodone/Apap 5/325 Tablet PO 02/03/25 18:09 Q6H PRN PAIN SCALE 4-6 (Moderate Sertraline HCl 25 mg 01/29/25 21:00 01/30/25 20:20 Sertraline Hcl 25 Mg Tablet PO 02/28/25 20:59 25 mg HS OMAR Administration Plan 79-year-old male with a history of CAD with history of 1 stent placement in 2004, ulcerative colitis sees Dr. Anderson, hypertension, chronic back pain, and severe osteoporosis admitted for SAGRARIO workup. #SAGRARIO #?CKD DDx: Prerenal versus intrarenal versus postrenal Creatinine on presentation 3.7, baseline creatinine is around 1.0 UA clear Urine electrolytes sodium 75 9, total protein 89, potassium 33 Patient has been taking teriparatide for the past month which may be contributing to the SAGRARIO Renal ultrasound performed 01/29 showed no hydronephrosis, bilateral renal cortical thinning After 2 L of fluid yesterday patient's creatinine improved to 3.3 Which showed mild responsiveness Thought at this time is that it could be intrarenal, will wait on nephrology's recommendation Plan: ?Nephrology consulted, Dr. Arthur, follow recs ?Lactated Ringer's 2 L running at 100 mL an hour - STOP teriparatide - HOLD Losartan - Renally dose meds - Avoid nephrotoxic meds ?Strict SARAH's and daily weights #Loss of appetite Since starting the medication teriparatide in the past month in Plan ? Dronabinol 2.5 mg twice daily ?RD consult, Ensure Plus ordered #History of osteoporosis #Kyphoplasty Patient has been prescribed teriparatide in the past month and has been taking this daily Patient was never started on alendronate due to history of ulcerative colitis and risk of worsening GI symptoms according to the specialist he saw Bone density performed 08/04/2024 showed osteopenia based on hip measurements however no T-score was mentioned Plan ?Physiotherapy consult ?Avoid bisphosphonates during S[place]RARIO # Hypercalcemia (resolved) Mild on admission (11.0), normalized after fluids and stopping teriparatide. Plan: - Hold calcium/Vit D supplements. #Essential HTN Home med losartan 25mg daily Plan - Monitor BP and restart med when appropriate #History of back pain Patient takes [place] 10/325 every 6 hours as needed for history of back pain Plan ? Analgesia as needed #History of ulcerative colitis Follows Dr. Anderson ? Resumed home mesalamine 800 mg twice daily #History of depression/anxiety ? Resumed Zoloft 25 mg daily Health Maintenance: Diet: Renal diet GI prophylaxis: None DVT prophylaxis: Heparin 5000 twice daily Antibiotics: None CODE STATUS: Full Disposition: Med/tele Case discussed with my attending Dr. Diaz, and senior resident, Dr. Yuni Nance MD PGY-1
--- NOTE | 2025-01-31 12:35 | ESPR_ITS ---
Documentation for date of: 01/31/25 Subjective Subjective Interval history: Reason for consult: SAGRARIO/hypercalcemia History of present illness: 79-year-old male with history of CAD s/p stent (2004), hypertension, ulcerative colitis (follows Dr. Anderson), severe osteoporosis, and chronic back pain admitted for evaluation of acute kidney injury. Baseline creatinine around 1.0, now elevated to 3.7 on admission. Patient reports several weeks of poor appetite and decreased oral intake, mainly drinking water or Ensure, and urinating only once daily. He denies fever, abdominal pain, chest pain, or changes in bowel habits. Symptoms started shortly after starting teriparatide (Forteo) about a month ago. Reports 8-lb weight loss in the past month. No recent contrast exposure, NSAID use, or nephrotoxic agents. Received 1 L NS bolus and 1 L LR in ED with improvement in creatinine to 3.3 mg/dL. Calcium initially 11.0 now 9.9. 01/30/2025: Seen today at bedside, alert and oriented ?3, reports feeling weak with poor appetite but denies SOB, chest pain, nausea, or flank pain. Oral intake remains poor. Urinating small amounts. 01/31/2025: Seen the patient today. He reports feeling much better with no problems or complaints. Appetite improving, tolerating fluids well. Denies nausea, vomiting, chest pain, shortness of breath, or flank pain. Labs: White blood cell 4.3, platelets 159, hemoglobin 8.2. Sodium 141, potassium 4.5, chloride 107, bicarbonate 24, BUN 30, creatinine 3.1 (down from 3.2 yesterday), and calcium 10.2 (slightly higher than yesterday). Will continue to monitor possible sign off tomorrow if creatinine improves and keeps downtrending. Exam Vital Signs Temp Pulse Resp BP Pulse Ox O2 Del Method O2 Flow Rate 97.2 F 67 16 139/80 H 95 Nasal Cannula 1 01/31/25 12:00 01/31/25 12:00 01/31/25 12:00 01/31/25 12:00 01/31/25 12:00 01/31/25 12:00 01/31/25 12:00 Narrative Exam General: Awake, conversant, mild fatigue. HEENT: Mucous membranes mildly dry. Neck: No JVD. Cardiac: Regular rate and rhythm, no murmurs. Lungs: Clear to auscultation bilaterally. Abdomen: Soft, non-tender, nondistended, +BS. Extremities: No edema. Neuro: Non-focal, moves all extremities. Skin: Warm, dry, no rash. Objective Labs 02/01/25 05:06 02/01/25 05:06 Labs: Laboratory Results - last 24 hr 01/30/25 01/30/25 01/31/25 00:00 16:40 04:40 WBC 4.3 RBC 2.51 L Hgb 8.2 L Hct 23.8 L MCV 95 MCH 32.7 MCHC 34.5 RDW Std Deviation 41.4 Plt Count 159 Neut % (Auto) 59 Lymph % (Auto) 25 [place] % (Auto) 11 Eos % (Auto) 3 Baso % (Auto) 1 Neut # (Auto) 2.6 Lymph # (Auto) 1.1 [place] # (Auto) 0.5 Eos # (Auto) 0.1 Baso # (Auto) 0.0 Immature Gran # (Auto) 0.07 H Absolute Nucleated RBC 0.00 Immature Gran % 2 H Nucleated RBC % 0 Sodium 140 141 Potassium 4.7 4.5 Chloride 106 107 Carbon Dioxide 25.3 24.1 Anion Gap 9 10 BUN 31 H 30 H Creatinine 3.2 H 3.1 H Estim Creat Clear Calc 17.4 L 18.0 L eGFR 19 L 20 L BUN/Creatinine Ratio 10 L 10 L Glucose 118 H 93 Calculated Osmolality 286 287 Calcium 9.4 9.7 Corrected Calcium 10.0 10.2 H Phosphorus 3.7 Total Bilirubin 0.3 AST 19 ALT 12 Alkaline Phosphatase 95 Total Protein 6.9 Albumin 3.3 L 3.4 Globulin 3.5 Albumin/Globulin Ratio 1.0 L Ur Random Creatinine 44 Quality Measures Quality Measures VTE prophylaxis Advance care planning discussed with:: patient and spouse Assessment & Plan Assessment Current Active Medications: Generic Name Dose Route Start Last Admin Trade Name Freq PRN Reason Stop Dose Admin Acetaminophen 650 mg 01/29/25 18:18 Acetaminophen 325 Mg Tablet PO 02/28/25 18:09 Q6H PRN PAIN 1-3 OR FEVER > 101 Dronabinol 2.5 mg 01/30/25 07:30 01/31/25 08:18 Dronabinol 2.5 Mg Capsule PO 03/01/25 07:29 2.5 mg BIDAC OMAR Administration Heparin Sodium (Porcine) 5,000 unit 01/29/25 21:00 01/31/25 08:17 Heparin Sod Inj 5000 Unit/Ml Vial SC 02/12/25 20:59 5,000 unit Q12HR OMAR Administration Mesalamine 800 mg 01/29/25 21:00 01/31/25 08:18 Mesalamine 400 Mg Capsule.Dr PO 02/28/25 20:59 800 mg BID OMAR Administration Morphine Sulfate 2 mg 01/29/25 18:10 Morphine Sulf Inj 4 Mg/Ml Vial IVP 02/03/25 18:09 Q2H PRN PAIN SCALE 7-10 (Severe Ondansetron HCl 4 mg 01/29/25 18:10 01/29/25 22:15 Ondansetron Inj 2 Mg/Ml Inj 2 Ml IVP 02/28/25 18:09 4 mg Q6H PRN Administration NAUSEA OR VOMITING Protocol Oxycodone/Acetaminophen 1 tab 01/29/25 18:10 Oxycodone/Apap 5/325 Tablet PO 02/03/25 18:09 Q6H PRN PAIN SCALE 4-6 (Moderate Sertraline HCl 25 mg 01/29/25 21:00 01/30/25 20:20 Sertraline Hcl 25 Mg Tablet PO 02/28/25 20:59 25 mg HS OMAR Administration Plan 79-year-old male with age-related CKD and SAGRARIO likely prerenal secondary to volume depletion and prior teriparatide-related hypercalcemia. Renal function improving with IV fluids. Calcium mildly up but stable. Patient clinically better and tolerating hydration well. # S[place]RARIO Likely prerenal etiology due to dehydration and Forteo-related hypercalcemia; improving with IVF. Slight improvement in creatinine from 3.2 ? 3.1 with ongoing IV fluids. Plan: * Continue LR 75 mL/hr for now * Hold Losartan, NSAIDs, and nephrotoxins. * Trend BMP daily * Strict I&O and daily weights. * If Cr worsens -> will consider obtaining more workup (FeNa/FeUrea, urine osmolality, and urine eosinophils) # Hypercalcemia Mild rise to 10.2; patient asymptomatic. Plan: * Continue IV fluids to enhance calcium clearance. * Hold teriparatide and calcium supplements. * Recheck Ca, Phos in AM. # CKD Imaging and prior data show bilateral cortical thinning and renal scarring, consistent with chronic kidney disease likely secondary to longstanding hypertension and vascular disease. Plan: * Educate patient regarding CKD precautions (avoid NSAIDs, contrast, dehydration). * Maintain renal-friendly diet and follow up with outpatient nephrology for CKD management. 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 # Poor appetite / weight loss Likely secondary to teriparatide. Plan: * Stop teriparatide permanently. * Continue dronabinol # Hypertension Currently normotensive Plan: * Per primary team # Osteoporosis History of Forteo use with adverse effects. Plan: * Avoid bisphosphonates during SAGRARIO. ----- Plan discussed with attending physician Dr. Sandhya Chin MD PGY-1 Internal Medicine Attending Provider Attestation/Addendum Patient seen and examined with resident physician Dr. Chin. Note reviewed, agree with findings and recommendations. Patient admitted with SAGRARIO and noted to have hypercalcemia probably related to Forteo. Agree with IV fluids. Creatinine tad better today. Thank you Cesar for allowing me to participate in the care of Mr. Luna
--- NOTE | 2025-01-31 15:57 | PC.SS ---
rounding note: 1 more day.
[2025-01-31] MEDS: RINGERS LACTATED 1000 ML 1,000 ML 75 ML IV (17:22)
[2025-01-31] MEDS: SERTRALINE HCL 25 MG TABLET PO (20:40)
[2025-02-01] VITALS: BP 133/71; PULSE 59; PULSE 68; RESP 16; TEMP 36.7; O2SAT 95
[2025-02-01 04:00] VITALS: BP 145/71; PULSE 61; PULSE 66; RESP 18; TEMP 36.5; O2SAT 95
[2025-02-01 05:53] LABS: Basophils # (Auto) 0.0 Thou/mm3 (0.0-0.2); Basophils % (Auto) 1 % (0-2.5); Eosinophils # (Auto) 0.1 Thou/mm3 (0.0-0.5); Eosinophils % (Auto) 3 % (0-10); Hematocrit 24.0 % (41.0-53.0); Immature Granulocytes Auto 0.07 Thou/mm3 (0.00-0.00); Lymphocytes # (Auto) 1.2 Thou/mm3 (1.0-4.8); Lymphocytes % (Auto) 28 % (10-50); Mean Corpuscular HGB Conc 34.2 g/dl (31.0-37.0); Mean Corpuscular Hemoglobin 32.5 pg (25.0-35.0); Mean Corpuscular Volume 95 fL (80-100); Monocytes # (Auto) 0.5 Thou/mm3 (0.0-0.8); Monocytes % (Auto) 12 % (0-12); Neutrophils # (Auto) 2.3 Thou/mm3 (1.8-7.7); Neutrophils % (Auto) 55 % (37-80); Nucleated Red Blood Cell # 0.00 Thou/mm3 (0.00-0.00); Nucleated Red Blood Cell % 0 /100 WBC (0); Platelet Count 161 Thou/mm3 (140-440); RDW Standard Deviation 41.2 fL (35.1-43.9); Red Blood Count 2.52 Miln/mm3 (4.50-5.90); White Blood Count 4.1 Thou/mm3 (3.8-10.6)
[2025-02-01 06:04] LABS: Hemoglobin 8.2 g/dL (13.5-16.0)
[2025-02-01 06:17] LABS: Alanine Aminotransferase 13 U/L (10-49); Albumin, Serum 3.2 gm/dL (3.4-4.8); Albumin/Globulin Ratio 1.0 (1.2-2.2); Alkaline Phosphatase 98 U/L (46-116); Anion Gap 10 (7-16); Aspartate Amino Transferase 23 U/L (0-34); BUN/Creatinine Ratio 11 Ratio (12-20); Bilirubin,Total 0.2 mg/dL (0.3-1.2); Blood Urea Nitrogen 27 mg/dL (9-23); Calcium 9.2 mg/dL (8.3-10.6); Calcium (Corrected) 9.8 mg/dL (8.5-10.1); Carbon Dioxide 25.4 mMol/L (20.0-31.0); Chloride 107 mMol/L (98-107); Creatinine (Component) 2.5 mg/dL (0.6-1.3); Estimated Creatinine Clearance 22.3 mL/min (>60); Globulin 3.2 gm/dL (2.3-3.5); Glucose 92 mg/dL (74-106); Osmolality,Calculated 288 (275-295); Potassium 4.8 mMol/L (3.4-5.1); Sodium 142 mMol/L (136-145); Total Protein 6.4 gm/dL (5.7-8.2); eGFR 26 See Note
[2025-02-01] MEDS: RINGERS LACTATED 1000 ML 1,000 ML 75 ML IV (06:17)
[2025-02-01 08:00] VITALS: BP 155/70; PULSE 62; RESP 18; TEMP 36.2; O2SAT 94
[2025-02-01] MEDS: MESALAMINE 400 MG CAPSULE.DR 800 MG PO (08:11)
[2025-02-01] MEDS: HEPARIN SOD INJ 5000 UNIT/ML VIAL SC (08:12)
--- NOTE | 2025-02-01 08:22 | ESPR_ITS ---
Documentation for date of: 02/01/25 Subjective Subjective Interval history: Interval history: Reason for consult: SAGRARIO/hypercalcemia History of present illness: 79-year-old male with history of CAD s/p stent (2004), hypertension, ulcerative colitis (follows Dr. Anderson), severe osteoporosis, and chronic back pain admitted for evaluation of acute kidney injury. Baseline creatinine around 1.0, now elevated to 3.7 on admission. Patient reports several weeks of poor appetite and decreased oral intake, mainly drinking water or Ensure, and urinating only once daily. He denies fever, abdominal pain, chest pain, or changes in bowel habits. Symptoms started shortly after starting teriparatide (Forteo) about a month ago. Reports 8-lb weight loss in the past month. No recent contrast exposure, NSAID use, or nephrotoxic agents. Received 1 L NS bolus and 1 L LR in ED with improvement in creatinine to 3.3 mg/dL. Calcium initially 11.0 now 9.9. 01/30/2025: Seen today at bedside, alert and oriented ?3, reports feeling weak with poor appetite but denies SOB, chest pain, nausea, or flank pain. Oral intake remains poor. Urinating small amounts. 01/31/2025: Seen the patient today. He reports feeling much better with no problems or complaints. Appetite improving, tolerating fluids well. Denies nausea, vomiting, chest pain, shortness of breath, or flank pain. Labs: White blood cell 4.3, platelets 159, hemoglobin 8.2. Sodium 141, potassium 4.5, chloride 107, bicarbonate 24, BUN 30, creatinine 3.1 (down from 3.2 yesterday), and calcium 10.2 (slightly higher than yesterday). Will continue to monitor possible sign off tomorrow if creatinine improves and keeps downtrending. 02/01/2025 patient resting comfortably. Creatinine markedly improved to 2.5. Suspect prerenal azotemia. Suggested to follow-up with me in 1 to 2 weeks. Review of Systems Review of Systems Narrative Review of Systems: Denies any chest pain, shortness of breath. Denies any nausea, vomiting Exam Vital Signs Temp Pulse Resp BP Pulse Ox O2 Del Method O2 Flow Rate 36.5 C 66 18 145/71 H 95 Nasal Cannula 1 02/01/25 04:00 02/01/25 04:00 02/01/25 04:00 02/01/25 04:00 02/01/25 04:00 02/01/25 04:00 02/01/25 04:00 Narrative Exam General: Awake, conversant, mild fatigue. HEENT: Mucous membranes mildly dry. Neck: No JVD. Cardiac: Regular rate and rhythm, no murmurs. Lungs: Clear to auscultation bilaterally. Abdomen: Soft, non-tender, nondistended, +BS. Extremities: No edema. Neuro: Non-focal, moves all extremities. Skin: Warm, dry, no rash. Objective Labs 02/01/25 05:06 02/01/25 05:06 Labs: Laboratory Results - last 24 hr 02/01/25 05:06 WBC 4.1 RBC 2.52 L Hgb 8.2 L Hct 24.0 L MCV 95 MCH 32.5 MCHC 34.2 RDW Std Deviation 41.2 Plt Count 161 Neut % (Auto) 55 Lymph % (Auto) 28 [place] % (Auto) 12 Eos % (Auto) 3 Baso % (Auto) 1 Neut # (Auto) 2.3 Lymph # (Auto) 1.2 [place] # (Auto) 0.5 Eos # (Auto) 0.1 Baso # (Auto) 0.0 Immature Gran # (Auto) 0.07 H Absolute Nucleated RBC 0.00 Immature Gran % 2 H Nucleated RBC % 0 Sodium 142 Potassium 4.8 Chloride 107 Carbon Dioxide 25.4 Anion Gap 10 BUN 27 H Creatinine 2.5 H D Estim Creat Clear Calc 22.3 L eGFR 26 L BUN/Creatinine Ratio 11 L Glucose 92 Calculated Osmolality 288 Calcium 9.2 Corrected Calcium 9.8 Total Bilirubin 0.2 L AST 23 ALT 13 Alkaline Phosphatase 98 Total Protein 6.4 Albumin 3.2 L Globulin 3.2 Albumin/Globulin Ratio 1.0 L Assessment & Plan Additional Assessment & Plan Additional Plan: 79-year-old male with age-related CKD and SAGRARIO likely prerenal secondary to volume depletion and prior teriparatide-related hypercalcemia. Renal function improving with IV fluids. Calcium mildly up but stable. Patient clinically better and tolerating hydration well. # SAGRARIO Likely prerenal etiology due to dehydration and Forteo-related hypercalcemia; improving with IVF. Slight improvement in creatinine from 3.2 --2.6. Plan: * Trend BMP daily * Strict I&O and daily weights. * Creatinine better-renal cortez stable for discharge. # Hypercalcemia patient asymptomatic. Plan: * Much better # CKD I Imaging and prior data show bilateral cortical thinning and renal scarring, consistent with chronic kidney disease likely secondary to longstanding hypertension and vascular disease. Plan: * Educate patient regarding CKD precautions (avoid NSAIDs, contrast, dehydration). * Maintain renal-friendly diet and follow up with outpatient nephrology for CKD management. 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 # Poor appetite / weight loss Likely secondary to teriparatide. Plan: * Stop teriparatide permanently. * Continue dronabinol # Hypertension Currently normotensive Plan: * Per primary team # Osteoporosis History of Forteo use with adverse effects. Plan: * Avoid bisphosphonates during SAGRARIO. Quality - progress note Quality Measures Quality Measures: VTE prophylaxis Reason for Continued Stay Reason for Continued Stay: further monitoring
--- NOTE | 2025-02-01 09:15 | PD.RESPRO ---
Documentation for date of: 02/01/25 Exam Vital Signs Temp Pulse Resp BP Pulse Ox O2 Del Method O2 Flow Rate 97.2 F 62 18 155/70 H 94 L Room Air 1 02/01/25 08:00 02/01/25 08:00 02/01/25 08:00 02/01/25 08:00 02/01/25 08:00 02/01/25 08:00 02/01/25 04:00 Objective Labs 02/01/25 05:06 02/01/25 05:06 Labs: Laboratory Results - last 24 hr 02/01/25 05:06 WBC 4.1 RBC 2.52 L Hgb 8.2 L Hct 24.0 L MCV 95 MCH 32.5 MCHC 34.2 RDW Std Deviation 41.2 Plt Count 161 Neut % (Auto) 55 Lymph % (Auto) 28 [place] % (Auto) 12 Eos % (Auto) 3 Baso % (Auto) 1 Neut # (Auto) 2.3 Lymph # (Auto) 1.2 [place] # (Auto) 0.5 Eos # (Auto) 0.1 Baso # (Auto) 0.0 Immature Gran # (Auto) 0.07 H Absolute Nucleated RBC 0.00 Immature Gran % 2 H Nucleated RBC % 0 Sodium 142 Potassium 4.8 Chloride 107 Carbon Dioxide 25.4 Anion Gap 10 BUN 27 H Creatinine 2.5 H D Estim Creat Clear Calc 22.3 L eGFR 26 L BUN/Creatinine Ratio 11 L Glucose 92 Calculated Osmolality 288 Calcium 9.2 Corrected Calcium 9.8 Total Bilirubin 0.2 L AST 23 ALT 13 Alkaline Phosphatase 98 Total Protein 6.4 Albumin 3.2 L Globulin 3.2 Albumin/Globulin Ratio 1.0 L Quality Measures Quality Measures VTE prophylaxis Assessment & Plan Assessment Current Active Medications: Generic Name Dose Route Start Last Admin Trade Name Freq PRN Reason Stop Dose Admin Acetaminophen 650 mg 01/29/25 18:18 Acetaminophen 325 Mg Tablet PO 02/28/25 18:09 Q6H PRN PAIN 1-3 OR FEVER > 101 Amlodipine Besylate 10 mg 02/01/25 09:00 Amlodipine Besylate 5 Mg Tablet PO 03/03/25 08:59 QDAY OMAR Dronabinol 2.5 mg 01/30/25 07:30 02/01/25 08:11 Dronabinol 2.5 Mg Capsule PO 03/01/25 07:29 2.5 mg BIDAC OMAR Administration Heparin Sodium (Porcine) 5,000 unit 01/29/25 21:00 02/01/25 08:12 Heparin Sod Inj 5000 Unit/Ml Vial SC 02/12/25 20:59 5,000 unit Q12HR OMAR Administration Lactated Ringer's 1,000 mls @ 75 mls/hr 01/31/25 16:00 02/01/25 06:17 Lactated Ringers IV 03/02/25 15:59 75 mls/hr .[id number] OMAR Administration Mesalamine 800 mg 01/29/25 21:00 02/01/25 08:11 Mesalamine 400 Mg Capsule.Dr PO 02/28/25 20:59 800 mg BID OMAR Administration Morphine Sulfate 2 mg 01/29/25 18:10 Morphine Sulf Inj 4 Mg/Ml Vial IVP 02/03/25 18:09 Q2H PRN PAIN SCALE 7-10 (Severe Ondansetron HCl 4 mg 01/29/25 18:10 01/29/25 22:15 Ondansetron Inj 2 Mg/Ml Inj 2 Ml IVP 02/28/25 18:09 4 mg Q6H PRN Administration NAUSEA OR VOMITING Protocol Oxycodone/Acetaminophen 1 tab 01/29/25 18:10 Oxycodone/Apap 5/325 Tablet PO 02/03/25 18:09 Q6H PRN PAIN SCALE 4-6 (Moderate Sertraline HCl 25 mg 01/29/25 21:00 01/31/25 20:40 Sertraline Hcl 25 Mg Tablet PO 02/28/25 20:59 25 mg HS OMAR Administration
[2025-02-01 10:00] VITALS: BP 155/70; PULSE 62
[2025-02-01 11:30] VITALS: PULSE 72
--- NOTE | 2025-02-01 14:29 | ESDS_ITS ---
<Statement entered by Kingsley Diaz MD - 02/01/25 18:55> I have discussed and was present for the essential components of the history, physical examination, diagnosis, and treatment plan with the resident. I agree with the patient's care as documented by the resident and amended herein by me. Kingsley Diaz MD FACP. Planned Discharge Date 02/01/25 DS: Providers Provider Date of admission: 01/29/25 18:05 Primary care physician: Kelsy Eubanks NP Admitting Provider: Alejandra Leary MD Attending Provider on Admission: Cesar Dodge MD Consults: 01/30/25 08:00 Referral Physical Therapy Routine Comment: Physician Instructions: Referral Registered Dietitian Routine Comment: Not eating well for several months 01/30/25 10:22 Consult to Nephrology Routine Comment: SAGRARIO - unknown etiology Consulting Provider: Yoselyn Arthur Attending Provider on DC: Ellen Heath DO Discharging Provider: Ellen Heath DO DS: Diagnosis Problem List Completed Was Problem List Reviewed/Reconciled?: Yes Hospital Course Hospital Course Hospital course: Patient seen today. No acute overnight events. Patient feels better today compared to yesterday. Tolerated meals well without any nausea or vomiting. Encouraged to drink more fluids. Not complaining of any pain, shortness of breath, abdominal pain, nausea/vomiting. Time Spent with Patient Time attestation: Total time spent providing and/or coordinating discharge services: Time spent: Greater than 30 minutes Home Health Home Health Referral Orders: Summary: 79-year-old male with a history of CAD with history of 1 stent placement in 2004, ulcerative colitis following Dr. Anderson, hypertension, chronic back pain, and severe osteoporosis, who presents for evaluation of possible SAGRARIO after his P CP noted a creatinine of 3.5?mg/dL today. Patient was treated with IVF and was discharged with instructions to stay hydrated and avoid teripartide. ED course: Initial vitals include temperature 98.1, BP 152/82, heart rate 107, respirate 20, saturating well in room air. Notable labs include WBC 8, hemoglobin 11.2, sodium 140, potassium 4.7, BUN 35, creatinine 3.7, eGFR 18, corrected calcium 11, normal LFTs except alkaline phosphatase elevated at 136, total protein 9.9. Patient was started on 1 L sodium chloride bolus and 1 L lactated ringer given over 100 cc an hour Hospital Course: Upon admission, LR IVF 100ml/hr started. Renal US showed Bilateral renal cortical thinning and Mild right and moderate left renal scar formation. Per nephrology, SAGRARIO likely triggered by hypercalcemia from teripartide and dehydration. Advised patient to stop teriparatide. Since patient had SAGRARIO, his HTN medication losartan has been temporaily held during hospital stay. He had low appetite and dronabiol 2.5 mg bid was given. Resumed home mesalazmine 800 mg bid started for his Ulcerative colitis and Zoloft 25 mg qd for depression/anxiety. Patient was asymptomatic and renal function improved: Creatinine 2.5 from 3.7, eGFR 26 from 16, and BUN 27 from 35. Calcium level dropped to 9.2 from 11.0. Patient was discharged with instruction to stay hydrated and stop teripartide. Instructions: Discharge Instructions: SAGRARIO and Hypercalcemia Medications: * Hold Calcium Carbonate: Do not take calcium carbonate due to high calcium levels. Only resume after evaluation by your Primary Care Provider (PCP). * Hold Losartan: Stop taking losartan temporarily due to acute kidney injury. Follow up with your PCP before restarting. * Continue Amlodipine 10 mg daily: Take once daily as prescribed for blood pressure control. * Other Home Medications: Continue taking your other prescribed medications as directed, unless advised otherwise. Lifestyle & Self-Care: * Increase Oral Fluid Intake: Stay well hydrated unless otherwise instructed. This helps support kidney recovery. Follow-Up Care: * Primary Care Provider Schedule a follow-up visit within 1 to 2 weeks after discharge. * Nephrology (Kidney Specialist): Follow up within 1 to 2 weeks as advised for kidney function monitoring and guidance on restarting medications. When to Seek Immediate Care: Return to the Emergency Department or seek immediate medical attention if you experience any of the following: * Worsening fatigue, nausea, or vomiting * Confusion or weakness * Decreased urine output * Chest pain or difficulty breathing * Any other new or worsening symptoms Safe to discharge to HOME. #SAGRARIO #?CKD #Loss of appetite #History of osteoporosis #Kyphoplasty # Hypercalcemia (resolved) #Essential HTN #History of back pain #History of ulcerative colitis #History of depression/anxiety Assessment and plan discussed with my attending physician Dr. Joe Heath (PGY-1) - Internal medicine resident Exam Vital Signs Temp Pulse Resp BP Pulse Ox O2 Del Method O2 Flow Rate 97.2 F 72 18 155/70 H 94 L Room Air 1 02/01/25 08:00 02/01/25 11:30 02/01/25 08:00 02/01/25 10:00 02/01/25 08:00 02/01/25 08:00 02/01/25 04:00 Narrative Exam General: Awake, conversant, mild fatigue, alert and oriented x 3 HEENT: Mucous membranes mildly dry. EOMI. PERRL. Neck supple. Cardiac: Regular rate and rhythm, S1+S2, no murmurs/rubs/gallops Lungs: Clear to auscultation bilaterally, no wheezes/crackles Abdomen: Soft, non-tender, nondistended, +BS. Extremities: No edema. Neuro: Non-focal, moves all extremities. Skin: Warm, dry, no rash. Discharge Plan Plan Patient Disposition: HOME (Self Care) Care Plan Goals: Discharge Instructions: SAGRARIO and Hypercalcemia Medications: * Hold Calcium Carbonate: Do not take calcium carbonate due to high calcium levels. Only resume after evaluation by your Primary Care Provider (PCP). * Hold Losartan: Stop taking losartan temporarily due to acute kidney injury. Follow up with your PCP before restarting. * Continue Amlodipine 10 mg daily: Take once daily as prescribed for blood pressure control. * Other Home Medications: Continue taking your other prescribed medications as directed, unless advised otherwise. Lifestyle & Self-Care: * Increase Oral Fluid Intake: Stay well hydrated unless otherwise instructed. This helps support kidney recovery. Follow-Up Care: * Primary Care Provider Schedule a follow-up visit within 1 to 2 weeks after discharge. * Nephrology (Kidney Specialist): Follow up within 1 to 2 weeks as advised for kidney function monitoring and guidance on restarting medications. When to Seek Immediate Care: Return to the Emergency Department or seek immediate medical attention if you experience any of the following: * Worsening fatigue, nausea, or vomiting * Confusion or weakness * Decreased urine output * Chest pain or difficulty breathing * Any other new or worsening symptoms Prescriptions/Referrals Prescriptions/Med Rec: Continued cetirizine 10 mg tablet 10 mg PO AC Patient Comments: TAKE 1 TABLET BY MOUTH DAILY amlodipine 5 mg tablet 10 mg PO QDAY Patient Comments: GENERIC FOR NORVASC- TAKE 1 TABLET BY MOUTH EVERY DAY Leqvio 284 mg/1.5 mL syringe 284 mg subcut .q6mo mesalamine [Delzicol] 400 mg Capsule (With Del Rel Tablets) 800 mg PO BID Qty: 30 0RF sertraline 25 mg tablet 25 mg PO HS Qty: 30 0RF Held calcium carbonate 600 mg calcium (1,500 mg) tablet 600 mg PO QDAY Qty: 30 0RF Hold Instructions: Resume on 02/15/25. Hold in the setting of hypercalcemia, follow-up with PCP before restarting Discontinued losartan 25 mg tablet 25 mg PO DAILY Patient Comments: TAKE 1 TABLET BY MOUTH EVERY DAY Referrals: Kelsy Eubanks NP [Primary Care Provider] Yoselyn Arthur MD [Physician, Nephrology] Patient/Caregiver Discharge Instructions Education Materials: Dehydration, Acute Kidney Failure Dc Print Language: Greek Stand Alone Forms: Breanne Award Info., Patient Portal Info Letter Discharge Order Discharge Orders: Discharge (Routine); Ordered 02/01/25 Ordered By: Johanna Morrissey Quality Discharge Quality Measures VTE prophylaxis
== END 2025-02-01 12:54 | disposition home or self-care (01) | DRG 683 ==
LOC: SERX 17:26 → SERHOLD 18:29 → S3NX 20:45
PROVIDERS: Internal Medicine; Admitting Provider Student in an Organized Health Care Education/Training Program; Emergency Provider Family Medicine; PCP Nurse Practitioner Family; Visit Provider Student in an Organized Health Care Education/Training Program
DX: N17.9 Acute kidney failure, unspecified (principal); K51.90 Ulcerative colitis, unspecified, without complications; M54.9 Dorsalgia, unspecified; I25.10 Atherosclerotic heart disease of native coronary artery without angina pectoris; G89.29 Other chronic pain; R63.0 Anorexia; M81.0 Age-related osteoporosis without current pathological fracture; F32.A Depression, unspecified; E78.00 Pure hypercholesterolemia, unspecified; R63.4 Abnormal weight loss; E83.52 Hypercalcemia; F41.9 Anxiety disorder, unspecified; I12.9 Hypertensive chronic kidney disease with stage 1 through stage 4 chronic kidney disease, or unspecified chronic kidney disease; N18.1 Chronic kidney disease, stage 1; T50.995A Adverse effect of other drugs, medicaments and biological substances, initial encounter; Z79.899 Other long term (current) drug therapy; Z95.5 Presence of coronary angioplasty implant and graft
CPT/HCPCS: 36415; 76770; 80053; 80061; 80069; 81001; 82306; 82436; 82550; 82570; 83735; 83970; 84100; 84133; 84156; 84300; 84443; 85014; 85018; 85025; 93005; 93225; 96361; 96372; 96374; 97162; 99285; J1644; J2405; J3475; J7030; J7050; J7120; Q0138; Q0167; Q5105; A9270

== ENCOUNTER → 2025-01-29 | Outpatient (CLI) | payer MEDICARE, BC, SELFPAY ==
--- NOTE | 2025-01-29 13:37 | XR_ITS ---
Examination: CT abdomen and pelvis without contrast. Coronal 3-D reconstructions. Sagittal 2-D reconstructions. Date and time of exam: January 29, 2025, 1349 hours, comparison September 29, 2010 INDICATIONS: Vomiting nausea weight loss beginning April 2024 CTDI: vol (mGy): 7.19 DLP: (mGycm): 401 Technique: Axial images of the abdomen have been obtained, 3 mm slice thickness Intravenous contrast material has not been administered. Low dose protocols were performed. One or more of the following dose reduction techniques were used; automated exposure control, adjustment of the mA and/or KV according to patient size, use of iterative reconstruction technique. Findings: Atelectasis in the lower lung zones No focal liver or splenic lesion Absent gallbladder No pancreatic or adrenal mass. No renal or ureteral calculi, no hydronephrosis Aorta normal size No bowel obstruction No diverticulitis Urinary bladder intact No prostatomegaly Prominent osteopenia Kyphoplasties L5 L1 with chronic osteoporotic compressions lower thoracic and lumbar vertebral bodies IMPRESSION: No renal or ureteral calculi, no hydronephrosis No bowel obstruction diverticulitis or free air
[2025-01-29 14:45] LABS: Basophils # (Auto) 0.0 Thou/mm3 (0.0-0.2); Basophils % (Auto) 1 % (0-2.5); Eosinophils # (Auto) 0.3 Thou/mm3 (0.0-0.5); Eosinophils % (Auto) 4 % (0-10); Hematocrit 32.5 % (41.0-53.0); Hemoglobin 11.2 g/dL (13.5-16.0); Immature Granulocytes Auto 0.18 Thou/mm3 (0.00-0.00); Lymphocytes # (Auto) 2.4 Thou/mm3 (1.0-4.8); Lymphocytes % (Auto) 30 % (10-50); Mean Corpuscular HGB Conc 34.5 g/dl (31.0-37.0); Mean Corpuscular Hemoglobin 34.3 pg (25.0-35.0); Mean Corpuscular Volume 99 fL (80-100); Monocytes # (Auto) 0.9 Thou/mm3 (0.0-0.8); Monocytes % (Auto) 11 % (0-12); Neutrophils # (Auto) 4.2 Thou/mm3 (1.8-7.7); Neutrophils % (Auto) 53 % (37-80); Nucleated Red Blood Cell # 0.00 Thou/mm3 (0.00-0.00); Nucleated Red Blood Cell % 0 /100 WBC (0); Platelet Count 259 Thou/mm3 (140-440); RDW Standard Deviation 44.7 fL (35.1-43.9); Red Blood Count 3.27 Miln/mm3 (4.50-5.90); White Blood Count 8.0 Thou/mm3 (3.8-10.6)
[2025-01-29 14:57] LABS: Alanine Aminotransferase 22 U/L (10-49); Albumin, Serum 4.8 gm/dL (3.4-4.8); Albumin/Globulin Ratio 0.9 (1.2-2.2); Alkaline Phosphatase 136 U/L (46-116); Anion Gap 12 (7-16); Aspartate Amino Transferase 32 U/L (0-34); BUN/Creatinine Ratio 9 Ratio (12-20); Bilirubin,Total 0.4 mg/dL (0.3-1.2); Blood Urea Nitrogen 35 mg/dL (9-23); Calcium 11.0 mg/dL (8.3-10.6); Calcium (Corrected) 11.0 mg/dL (8.5-10.1); Carbon Dioxide 23.5 mMol/L (20.0-31.0); Chloride 105 mMol/L (98-107); Creatinine (Component) 3.7 mg/dL (0.6-1.3); Globulin 5.1 gm/dL (2.3-3.5); Glucose 104 mg/dL (74-106); Osmolality,Calculated 287 (275-295); Potassium 4.7 mMol/L (3.4-5.1); Sodium 140 mMol/L (136-145); Total Protein 9.9 gm/dL (5.7-8.2); eGFR 16 See Note
== END | disposition home or self-care (01) ==
LOC: CDIM 13:32 → COPL 14:00
PROVIDERS: PCP Nurse Practitioner Family; Referring Provider Nurse Practitioner Family; Visit Provider Radiology Diagnostic Radiology
DX: K51.90 Ulcerative colitis, unspecified, without complications (principal); R63.4 Abnormal weight loss; R11.0 Nausea
CPT/HCPCS: 36415; 74176; 80053; 85025

== ENCOUNTER → 2025-02-10 | Outpatient (CLI) | payer MEDICARE, BC, SELFPAY ==
[2025-02-10 11:57] LABS: Collection Type, Urine Clean Catch
[2025-02-10 12:12] LABS: Basophils # (Auto) 0.0 Thou/mm3 (0.0-0.2); Basophils % (Auto) 1 % (0-2.5); Eosinophils # (Auto) 0.1 Thou/mm3 (0.0-0.5); Eosinophils % (Auto) 1 % (0-10); Hematocrit 30.9 % (41.0-53.0); Hemoglobin 10.6 g/dL (13.5-16.0); Immature Granulocytes Auto 0.09 Thou/mm3 (0.00-0.00); Lymphocytes # (Auto) 2.0 Thou/mm3 (1.0-4.8); Lymphocytes % (Auto) 28 % (10-50); Mean Corpuscular HGB Conc 34.3 g/dl (31.0-37.0); Mean Corpuscular Hemoglobin 33.2 pg (25.0-35.0); Mean Corpuscular Volume 97 fL (80-100); Monocytes # (Auto) 0.6 Thou/mm3 (0.0-0.8); Monocytes % (Auto) 9 % (0-12); Neutrophils # (Auto) 4.4 Thou/mm3 (1.8-7.7); Neutrophils % (Auto) 60 % (37-80); Nucleated Red Blood Cell # 0.00 Thou/mm3 (0.00-0.00); Nucleated Red Blood Cell % 0 /100 WBC (0); Platelet Count 219 Thou/mm3 (140-440); RDW Standard Deviation 45.3 fL (35.1-43.9); Red Blood Count 3.19 Miln/mm3 (4.50-5.90); White Blood Count 7.2 Thou/mm3 (3.8-10.6)
[2025-02-10 12:23] LABS: Iron 106 mcg/dL (65-175); Prostate Specific Antigen 0.46 ng/mL (0-4.00)
[2025-02-10 12:25] LABS: Bacteria,Urine Rare; Bilirubin,Urine Negative (Negative); Blood,Urine Negative (Negative); Clarity,Urine Clear (Clear/Hazy); Color,Urine Lt-Yellow (Lt Yel-Yel); Culture Indicated,Urine Not Indicated; Glucose, Urine Negative (Negative); Hyaline Casts,Urine < 1 /hpf (0-1); Ketones,Urine Negative (Negative); Leukocyte Esterase,Urine Positive (Negative); Nitrite,Urine Negative (Negative); PH,Urine 6.0 (5.0-7.0); Protein,Urine 1+ (Neg - Trace); RBC,Urine 1 /hpf (0-3); Specific Gravity,Urine 1.013 (1.001-1.035); Squamous Epithelial Cell,Urine < 1 /hpf (0-5); Urobilinogen,Urine Negative mg/dL (0.0-1.0); WBC,Urine 5 /hpf (0-5)
[2025-02-10 12:28] LABS: Alanine Aminotransferase 23 U/L (10-49); Albumin, Serum 4.6 gm/dL (3.4-4.8); Albumin/Globulin Ratio 1.0 (1.2-2.2); Alkaline Phosphatase 122 U/L (46-116); Anion Gap 14 (7-16); Aspartate Amino Transferase 32 U/L (0-34); BUN/Creatinine Ratio 10 Ratio (12-20); Bilirubin,Total 0.4 mg/dL (0.3-1.2); Blood Urea Nitrogen 29 mg/dL (9-23); Calcium 10.3 mg/dL (8.3-10.6); Calcium (Corrected) 10.3 mg/dL (8.5-10.1); Carbon Dioxide 21.7 mMol/L (20.0-31.0); Cardiac Risk Estimate 6.2 RATIO (4.0-6.7); Chloride 100 mMol/L (98-107); Cholesterol 179 mg/dL (132-200); Creatinine (Component) 2.8 mg/dL (0.6-1.3); Globulin 4.4 gm/dL (2.3-3.5); Glucose 110 mg/dL (74-106); HDL Cholesterol 29 mg/dL (40-60); LDL Cholesterol,Calculated 103 mg/dL (0-130); Osmolality,Calculated 278 (275-295); Potassium 4.3 mMol/L (3.4-5.1); Sodium 136 mMol/L (136-145); Thyroid Stimulating Hormone 1.53 uIU/mL (0.55-4.78); Total Protein 9.0 gm/dL (5.7-8.2); Triglycerides 236 mg/dL (30-150); Vitamin B12 732 pg/mL (211-911); eGFR 23 See Note
== END | disposition home or self-care (01) ==
LOC: COPL 11:18
PROVIDERS: PCP Nurse Practitioner Family; Referring Provider Nurse Practitioner Family; Visit Provider Nurse Practitioner Family
DX: Z00.00 Encounter for general adult medical examination without abnormal findings (principal); K51.90 Ulcerative colitis, unspecified, without complications; I10 Essential (primary) hypertension; E78.5 Hyperlipidemia, unspecified; F52.21 Male erectile disorder
CPT/HCPCS: 36415; 80053; 80061; 81001; 82607; 83540; 84153; 84443; 85025

== ENCOUNTER → 2025-03-06 | Outpatient (CLI) | payer MEDICARE, BC, SELFPAY ==
--- NOTE | 2025-03-06 12:37 | XR_ITS ---
Examination: Shoulder, left, 3 views Technique: Shoulder AP internal rotation, AP external rotation, Y view shoulder, 3 views Exam date and time : March 06 0 25, 1301 hours INDICATIONS: Left shoulder pain beginning 1 month ago FINDINGS: Severe osteopenia Moderate narrowing glenohumeral joint No shoulder fracture or dislocation IMPRESSION: Moderate narrowing of glenohumeral joint
== END | disposition home or self-care (01) ==
LOC: CDIM 12:16
PROVIDERS: PCP Family Medicine; Referring Provider Physician Assistant; Visit Provider Physician Assistant
DX: M25.812 Other specified joint disorders, left shoulder (principal)
CPT/HCPCS: 73030

== ENCOUNTER → 2025-03-13 | Outpatient (CLI) | payer MEDICARE, BC, SELFPAY ==
[2025-03-13 11:35] LABS: Anion Gap 9 (7-16); BUN/Creatinine Ratio 19 Ratio (12-20); Blood Urea Nitrogen 28 mg/dL (9-23); Calcium 9.5 mg/dL (8.3-10.6); Carbon Dioxide 25.3 mMol/L (20.0-31.0); Chloride 105 mMol/L (98-107); Creatinine (Component) 1.5 mg/dL (0.6-1.3); Glucose 115 mg/dL (74-106); Osmolality,Calculated 284 (275-295); Potassium 4.1 mMol/L (3.4-5.1); Sodium 139 mMol/L (136-145); eGFR 48 See Note
== END | disposition home or self-care (01) ==
LOC: COPL 10:36
PROVIDERS: PCP Family Medicine; Referring Provider Nurse Practitioner Family; Visit Provider Nurse Practitioner Family
DX: N19 Unspecified kidney failure (principal)
CPT/HCPCS: 36415; 80048

== ENCOUNTER 2025-04-03 08:30 | Day surgery (SDC) | payer MEDICARE, BC, SELFPAY ==
[2025-04-03] VITALS (15 sets, daily range): BP systolic 111–163; BP diastolic 68–95; PULSE 74–94; RESP 12–20; TEMP 36.5–36.7; O2SAT 96–100; BMI 22.8
[2025-04-03] MEDS: BENZOCAINE 20% (Hurricaine) SPRAY 1 DOSE TOP (10:34)
[2025-04-03] MEDS: SODIUM CHLORIDE 0.9% 500 ML 500 ML 20 ML IV (10:34)
[2025-04-03] MEDS: fentaNYL CIT INJ 50 mCg/ML AMP 2ML (ASD USE ONLY) IVP (11:03)
[2025-04-03] MEDS: MIDAZOLAM INJ 1 MG/ML VIAL 2 ML (ASD USE ONLY) 2 MG IVP (11:03)
== END 2025-04-03 12:25 | disposition home or self-care (01) ==
PROVIDERS: PCP Family Medicine; Referring Provider Specialist; Visit Provider Specialist
PROC: (CPT 43239; principal; 2025-04-03 14:00)
PROC: 0DBE8ZX Excision of Large Intestine, Via Natural or Artificial Opening Endoscopic, Diagnostic (ICD-10-PCS; CPT 45380; 2025-04-03 14:00)
DX: K22.2 Esophageal obstruction (principal); K20.90 Esophagitis, unspecified without bleeding; K29.70 Gastritis, unspecified, without bleeding; D12.3 Benign neoplasm of transverse colon; D12.4 Benign neoplasm of descending colon; D12.8 Benign neoplasm of rectum; K64.1 Second degree hemorrhoids; K57.30 Diverticulosis of large intestine without perforation or abscess without bleeding
CPT/HCPCS: 43248; 43239; 45385; 45380; A4649; C1769; J1200; J2250; J3010; J7999; A9270

== ENCOUNTER 2025-04-09 10:02 | Outpatient (RCR) | payer MEDICARE, BC, SELFPAY ==
--- NOTE | 2025-04-09 13:12 | CTCCONSULT_ITS ---
Patient: ALEXIS PALMA : 1945 MR#: [id number] Page 2 of 3 CONSULTATION NOTE DATE OF CONSULTATION: 04/09/2025 NAME: ALEXIS PALMA ACCOUNT: [id number] : 1945 AGE: 79 REFERRING PHYSICIAN: Kelsy Eubanks MD PRIMARY PHYSICIAN: Kelsy Eubanks MD REASON FOR VISIT: Osteolytic lesions ONCOLOGY HISTORY: DIAGNOSIS: Osteolytic lesions concerning for multiple myeloma DATE OF DIAGNOSIS: 03/10/2025 STAGE/TNM: Likely stage IV metastatic TREATMENT HISTORY: Care?Plan Start?Date Cycle Day Intent HISTORY OF PRESENT ILLNESS: 79-year-old male who was given a medicine for his osteoporosis and apparently was noted to be in renal failure. Patient was noted to have anemia renal failure and also lytic lesions on the MRI. Patient is here to establish for metastatic cancer. OTHER MEDICAL HISTORY/CONDITIONS: FAMILY HISTORY: SOCIAL HISTORY: MEDICATIONS: 1. acyclovir - 400 mg 1 tab twice daily Medications Last Reconciled by Giovana Devries MD on 04/09/2025 ALLERGIES: REVIEW OF SYSTEMS: A complete 14-point review of systems was performed and is negative except as noted in interval history. PHYSICAL EXAMINATION: VITAL SIGNS: PAIN: 6 - Severe pain ECOG Performance Status: 1 - Symptomatic; ambulatory; restricted in strenuous activity GENERAL APPEARANCE: Appears well, in no apparent distress, appropriately interactive. HEENT: Normocephalic, no temporal wasting, normal conjunctiva, no scleral icterus, normal hearing, lips without lesions, neck normal range of motion. CARDIOVASCULAR: Not assessed. PULMONARY: Normal respiratory effort, no respiratory distress or use of accessory muscles, speaking in full sentences, no tachypnea. EXTREMITIES: No pedal edema or cyanosis. SKIN: Normal skin appearance. NEUROLOGIC: Alert and oriented x4. PSHYCHIATRIC: Appropriate affect, mood normal, behavior normal, intact thought and speech. LABORATORY DATA: I have personally reviewed and interpreted each of the patient?s relevant lab tests, abnormal findings are below: Date ASSESSMENT/PLAN: Lytic lesions concerning for multiple myeloma PSA is normal Will do myeloma labs Patient has anemia and will be worked up for iron deficiency B12 and folate Care deficiency Patient's lytic lesions along with anemia hypercalcemia and kidney failure is concerning for crab criteria for multiple myeloma Will order bone marrow biopsy PET CT scan to evaluate extent of disease RTC in 4 weeks with labs ORDERS: Order # Description [id number] MD Follow Up 4 Week + Comprehensive Metabolic Panel - 12 + CBC with Auto Diff [id number] Serum Protein Electrophoresis + Serum Immunofixation Electrophoresis + Beta-2 Microglobulin + Quant Immunoglobulins + Free kappa and lambda light chains plus ratio, quantitative + 24 Hour Urine for total Protein + Urine Protien Electrophoresis + Serum Viscocity [id number] Initial PET/CT of Skull to Mid-Thigh [id number] Iron Panel + Ferritin + Vitamin B-12 + Folic Acid; Serum [id number] CT Guided Bone Marrow Biopsy and Aspiration + Plasma cell myeloma prognostic FISH panel RETURN TO CLINIC: I reviewed the diagnosis, prognosis, and recommended treatment/procedure options with the patient (and/or their legal mechanical service representative), including the potential benefits, risks, side effects and alternative therapies. We also discussed the option of no treatment and the possibility of clinical trial participation, if applicable. All questions were addressed, and they demonstrated understanding. They provided informed consent to proceed with the proposed plan of care. BILLING AND COMPLIANCE: I reviewed external records from providers outside my specialty as summarized above. I spent a total of 50 minutes on this patient?s care on the day of their visit excluding time spent related to any billed procedures. This time includes time spent with the patient as well as time spent documenting in the medical record, reviewing patients records and tests, obtaining history, placing orders, communicating with other healthcare professionals, counseling the patient, family or caregiver, and/or care coordination for the diagnoses above. Electronically Signed by: Dirk Rivera MD T: 1:10 PM CC: PCP: Kelsy Eubanks Referring: Kelsy Eubanks This document was completed utilizing speech recognition software. Grammatical errors, random word insertions, pronoun errors, and incomplete sentences are an occasional consequence of this system due to software limitations, ambient noise, and hardware issues. Any formal questions or concerns about the content, text or information contained within the body of this dictation should be directly addressed to the provider for clarification.
== END 2025-04-22 23:59 | disposition home or self-care (01) ==
LOC: SCTC 10:02
PROVIDERS: PCP Nurse Practitioner Family; Referring Provider Nurse Practitioner Family; Visit Provider Internal Medicine Hematology & Oncology
DX: M89.50 Osteolysis, unspecified site (principal); D64.9 Anemia, unspecified; E83.52 Hypercalcemia; N19 Unspecified kidney failure
CPT/HCPCS: 99214; G0463

== ENCOUNTER → 2025-04-09 | Outpatient (CLI) | payer MEDICARE, BC, SELFPAY ==
[2025-04-09 12:33] LABS: Misc Send Out* See Sep Rpt
[2025-04-09 13:14] LABS: Basophils # (Auto) 0.1 Thou/mm3 (0.0-0.2); Basophils % (Auto) 1 % (0-2.5); Eosinophils # (Auto) 0.1 Thou/mm3 (0.0-0.5); Eosinophils % (Auto) 1 % (0-10); Hematocrit 29.6 % (41.0-53.0); Hemoglobin 9.7 g/dL (13.5-16.0); Immature Granulocytes Auto 0.27 Thou/mm3 (0.00-0.00); Lymphocytes # (Auto) 2.5 Thou/mm3 (1.0-4.8); Lymphocytes % (Auto) 27 % (10-50); Mean Corpuscular HGB Conc 32.8 g/dl (31.0-37.0); Mean Corpuscular Hemoglobin 32.0 pg (25.0-35.0); Mean Corpuscular Volume 98 fL (80-100); Monocytes # (Auto) 0.9 Thou/mm3 (0.0-0.8); Monocytes % (Auto) 10 % (0-12); Neutrophils # (Auto) 5.5 Thou/mm3 (1.8-7.7); Neutrophils % (Auto) 59 % (37-80); Nucleated Red Blood Cell # 0.04 Thou/mm3 (0.00-0.00); Nucleated Red Blood Cell % 0 /100 WBC (0); Platelet Count 238 Thou/mm3 (140-440); RDW Standard Deviation 50.5 fL (35.1-43.9); Red Blood Count 3.03 Miln/mm3 (4.50-5.90); White Blood Count 9.3 Thou/mm3 (3.8-10.6)
[2025-04-09 13:27] LABS: Alanine Aminotransferase 30 U/L (10-49); Albumin, Serum 4.2 gm/dL (3.4-4.8); Albumin/Globulin Ratio 0.8 (1.2-2.2); Alkaline Phosphatase 112 U/L (46-116); Anion Gap 11 (7-16); Aspartate Amino Transferase 29 U/L (0-34); BUN/Creatinine Ratio 13 Ratio (12-20); Bilirubin,Total 0.3 mg/dL (0.3-1.2); Blood Urea Nitrogen 21 mg/dL (9-23); Calcium 9.8 mg/dL (8.3-10.6); Calcium (Corrected) 9.8 mg/dL (8.5-10.1); Carbon Dioxide 22.8 mMol/L (20.0-31.0); Chloride 107 mMol/L (98-107); Creatinine (Component) 1.6 mg/dL (0.6-1.3); Globulin 5.1 gm/dL (2.3-3.5); Glucose 105 mg/dL (74-106); Osmolality,Calculated 284 (275-295); Potassium 4.2 mMol/L (3.4-5.1); Sodium 141 mMol/L (136-145); Total Protein 9.3 gm/dL (5.7-8.2); eGFR 44 See Note
[2025-04-09 13:30] LABS: Folate 13.59 ng/mL (>5.38); Vitamin B12 479 pg/mL (211-911)
[2025-04-09 13:36] LABS: Iron 50 mcg/dL (65-175); Percent Iron Saturation 16 % (20-55); Total Iron Binding Capacity 298 mcg/dL (250-425); Unsaturated Iron Binding 248 (225-295)
[2025-04-09 13:49] LABS: Ferritin 1529 ng/mL (10.5-307.3)
[2025-04-15 13:53] LABS: Abn Protein Band1,Random Urine 279 mg/dL (NONE DETECTED); Albumin, Random Urine 6 %; Alpha 1 Globulin, Random Urine 1 %; Alpha 2 Globulin, Random Urine 2 %; Beta Globulin, Random Urine 3 %; Gamma Globulin, Random Urine 88 %; Protein,Total,Random Urine 371 mg/dL (5-25); Protein/Creatinine Ratio 2750 mg/g creat (25-148)
[2025-04-18 08:51] LABS: Abnormal protein band 1 2.3 g/dL (NONE DETECTED); Abnormal protein band 2 0.2 g/dL (NONE DETECTED); Albumin 3.9 g/dL (3.8-4.8); Alpha-1-Globulin 0.4 g/dL (0.2-0.3); Alpha-2-Globulin 1.0 g/dL (0.5-0.9); Beta-1-Globulin 0.5 g/dL (0.4-0.6); Beta-2-globulin 0.5 g/dL (0.2-0.5); Gamma Globulin 2.5 g/dL (0.8-1.7); Immunoglobulin G 3737 mg/dL (600-1540); Kappa Light Chain, Free 7.3 mg/L (3.3-19.4); Lambda Light Chain, Free 2483.4 mg/L (5.7-26.3)
[2025-04-20 07:05] LABS: Creatinine, Random Urine 135 mg/dL (20-320); Protein/Creatinine Ratio mg/mg 2.750 (0.025-0.148)
[2025-04-20 07:11] LABS: Beta 2 Microglobulin 5.60 mg/L (< OR = 2.51); Immunoglobulin A 30 mg/dL (70-320); Immunoglobulin M 21 mg/dL (50-300); Kappa/Lambda, Free Ratio <0.01 (0.26-1.65); Protein, total, serum 8.8 g/dL (6.1-8.1)
== END | disposition home or self-care (01) ==
PROVIDERS: PCP Family Medicine; Referring Provider Internal Medicine Hematology & Oncology; Visit Provider Internal Medicine Hematology & Oncology
DX: C90.00 Multiple myeloma not having achieved remission (principal)
CPT/HCPCS: 36415; 80053; 82232; 82570; 82607; 82728; 82746; 82784; 83521; 83540; 83550; 84155; 84156; 84165; 84166; 85025; 85810; 86334

== ENCOUNTER 2025-04-14 11:15 | Inpatient (IN) | payer MEDICARE, BC, SELFPAY ==
--- NOTE | 2025-04-14 | XR_ITS ---
Examination: Retroperitoneal ultrasound, complete Technique: Multiple high resolution grayscale images of the retroperitoneum obtained, including kidneys and bladder. Exam date and time: April 14, 2025, 1937 hours INDICATION: Acute renal insufficiency on laboratory examination today. FINDINGS: Right kidney 9.7 cm renal cortex 1.5 cm Left kidney 11.1 cm renal cortex 1.4 cm Mild right moderate left renal scarring No hydronephrosis Contracted urinary bladder No prostatomegaly no prostate nodules IMPRESSION: Small right kidney Bilateral renal cortical thinning Mild right moderate left renal scarring
[2025-04-14 11:16] VITALS: BP 134/71; PULSE 79; RESP 16; TEMP 36.6; O2SAT 99; BMI 24.0
--- NOTE | 2025-04-14 11:16 | EKG_ITS ---
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
--- NOTE | 2025-04-14 11:23 | XR_ITS ---
Upright PA chest film 04/14/2025 at 11:30 7:00 a.m. CLINICAL HISTORY: Chest pain FINDINGS: Heart size is normal there is mildly prominent elongation and tortuosity of the thoracic aorta. The mediastinal areas appear normal. There is minimal but definite calcification of the apical pleura over the superior margin of both lungs. This would at least raise the possibility of mesothelioma. On the previous radiograph both lungs and pleural space were clear and normal in appearance Since then the patient has developed a very large 4.5x5 point centimeters noncalcified lobulated mass in the mid lateral right lung. There is a second smaller nodular mass along the posterolateral margin of the right midlung which might arise from the pleural surface. There are some chronic curvilinear strands of fibrosis in the base of the right lower lobe. On the left there is a 3 cm long extra pulmonary nodule along the lower lateral margin of the left lower lobe, associated with pathologic fracture of the lateral left eighth rib. There is a definite elongated abnormal density behind the left side of the heart. There is an extremely minimal possibly insignificant opacity seen in the mid lateral left lung there appears to be lytic destruction of the inferior aspect of the distal margin of the left clavicle adjacent to the acromion process. There is an old remote well-healed fracture of the distal shaft of the right clavicle which was not present on the previous chest film. IMPRESSION: 1. Since the previous chest x-ray on 11/20/2023 the patient has developed a large number of findings indicate malignancy. There is a large lobulated mass over the mid lateral right lung, this could represent a large primary bronchogenic carcinoma or other pulmonary malignancy. However there are a few additional small extrapleural nodular mass lesions on both sides, the one on the left creates pathologic destruction of the lateral left eighth rib. It would be possible that the large lobulated lesion a huge extrapleural mass located posteriorly. 2 there is exceedingly minimal biapical pleural calcification, and this is strongly suggestive for the possibility of mesothelioma. 3. There is a moderately prominent abnormal density behind the left side of the heart adjacent to the left side of the lower dorsal spine could represent an area of alveolar consolidation, or it could represent another malignant neoplasm possibly in the left paraspinal region. 4. I very strongly recommend chest CT with IV contrast infusion. End report
--- NOTE | 2025-04-14 11:24 | PD.EDADULT ---
ED General RME/HPI General Chief complaint: Chest Pain Stated complaint: chest pain Time Seen by Provider: 04/14/25 11:23 Arrival date/time: 04/14/25 11:15 CC: Chest pain HPI ongoing for 1 week, worse in the last 2 days constant center anterior chest with shortness of breath. Denies fever nausea vomiting headache difficulty breathing. Related Data Home Medications ?Medication ?Instructions ?Recorded ?Confirmed amlodipine 5 mg tablet 10 mg PO QDAY 11/14/23 04/14/25 cetirizine 10 mg tablet 10 mg PO AC 11/14/23 04/14/25 inclisiran 284 mg/1.5 mL 284 mg subcut .q6mo 09/22/24 04/14/25 subcutaneous syringe (Leqvio) hydrocodone 10 mg-acetaminophen 1 tab PO QDAY PRN pain 04/03/25 04/14/25 325 mg tablet Held on 04/03/25. Instructions: Resume on 04/04/25. prednisone 20 mg tablet 20 mg PO QDAY 04/03/25 04/14/25 Previous Rx's ?Medication ?Instructions ?Recorded calcium carbonate 600 mg PO QDAY #30 tabs 09/23/24 mesalamine 400 mg capsule (with 800 mg (2 x 400 mg) PO BID #30 ea 09/23/24 delayed release tablets inside) (Delzicol) sertraline 25 mg tablet 25 mg PO HS #30 tabs 09/23/24 Allergies Allergy/AdvReac Type Severity Reaction Status Date / Time No Known Allergies Allergy Verified 04/14/25 11:20 Review of Systems Review of Systems Narrative Review of Systems: GEN: No fever, no chills, no weight loss EYES: No discharge, no visual changes, no pain HEENT: No ear pain, no congestion, no sore throat PULM: No shortness of breath, no cough, no congestion CV: + chest pain, no dyspnea on exertion, no palpitations GI: No nausea, no vomiting, no diarrhea, no pain, no constipation : No frequency, no urgency, no dysuria MUSC/SKEL: No joint pain, no back pain SKIN: No rash PSYCH: No hallucinations, no depression HEME/LYMPH: No easy bleeding or bruising tendencies NEURO: No weakness, no headache Past Medical History Past Medical History NEUROLOGIC: Negative Neurological Disorders or Seizures CARDIAC: Positive Cardiac Disorders (cardiac stent 2004), Coronary Artery Disease, Hypercholesterolemia and Hypertension; Negative Congestive Heart Failure RESPIRATORY: Positive Chronic Obstructive Pulmonary Disease (COPD) and Sleep Apnea; Negative Asthma or Pneumonia GASTROINTESTINAL: Positive Gastrointestinal Disorders (dysphagia), Colitis, Ulcerative Colitis and Gastroesophageal Reflux Disease; Negative Hepatitis or Obesity GENITOURINARY: Positive Genitourinary Disorders and Benign Prostatic Hyperplasia; Negative Renal Disease MUSCULOSKELETAL: Positive Musculoskeletal Disorders (very weak and unsteady, uses walker), Arthritis, Osteoporosis and Fractures (BACK X 4) ENDOCRINE: Negative Endocrine Disorders, Diabetes Mellitus Type 1 or Diabetes Mellitus Type 2 HEMATOLOGIC: Negative Blood Disorders OTHER HISTORY: Positive Hospitalization, Falls, Chicken Pox, Measles, Mumps and Cancer; Negative Autoimmune Disease, Developmental Delay, Blood Transfusions, Anesthesia Reactions, MRSA, VRSA, Vancomycin-Resistant Enterococci, Human Immunodeficiency Virus (HIV), Rubella ([place] Measles), Pertussis or Clostridium Difficile Family History FAMILY HISTORY: Positive Family Respiratory Disorders, Family Cardiac Disorders, Family Cancer and Family Surgery; Negative Family Psychiatric Problems, Family Gastrointestinal Problems or Family Anesthesia Reaction Surgical History SURGICAL: Positive Cardiac Surgery, Coronary Stent and Abdominal Surgery; Negative Endocrine Surgery, Thyroidectomy, Ear Surgery, Nephrectomy or Joint Replacement Social History SMOKING STATUS: Former smoker ED Exam Narrative Physical exam: [General: Obese not in cot no acute distress Head normocephalic HEENT: Within acceptable limits Neck is supple nontender Chest equal chest rise nontender to palpation Respiratory: Clear to auscultation no wheezes crackles or rubs CV: Rate rhythm is regular no murmurs rubs or clicks Abdomen is distended secondary to body habitus soft nontender no masses positive bowel sounds all 4 quadrants Back: No CVA tenderness no spinous process tenderness from cervical spine thoracic and lumbar spine Skin: Intact no petechiae rash induration ulceration or crepitus Extremities: Moving all extremity against resistance cap refill less than 2 seconds neurosensory intact Neuro: Awake alert oriented x3 Glascow coma 15 no focal deficits] Course Course Course Narrative: CC: Patient's BUN and creatinine noted be significantly elevated with a creatinine of 3.7. This was discussed with Dr. Arthur who is his life sciences manager she agrees patient needs to be admitted and will consult on the patient. Patient does meet crab criteria for multiple myeloma. However calcium is not significantly elevated only at 11.0. CT chest abdomen pelvis shows exam extensive masses in the chest cavity area. Patient advised of this. Per CRAB criteria I am highly suspicious of multiple myeloma. Patient's case then discussed with the resident for Dr. Mason the attending who accepts the patient for admission. Quality Measures none Orders Category Date Time Status COVID-19 Screening Questionnaire NOW Care 04/14/25 13:37 Active Decision to Admit X1 Care 04/14/25 13:37 Completed EKG (ED ONLY) *Do not use* NOW Care 04/14/25 11:16 Completed Consult to Nephrology Stat Cons 04/14/25 12:[address] chest abdomen pelvis wo Stat Exams 04/14/25 12:03 Completed EKG (ED Only) Stat Exams 04/14/25 11:16 Draft XR chest 1V Stat Exams 04/14/25 11:23 Completed B-Type Natriuretic Peptide Stat Lab 04/14/25 12:00 Completed CBC Stat Lab 04/14/25 12:00 Completed Comprehensive Metabolic Panel Stat Lab 04/14/25 12:00 Completed Drug Screen,Urine Stat Lab 04/14/25 17:12 Ordered LDH (Lactate Dehydrogenase) Stat Lab 04/14/25 12:00 Completed Magnesium Stat Lab 04/14/25 12:00 Completed Partial Thromboplastin Time Stat Lab 04/14/25 14:16 Completed Prothrombin Time with INR Stat Lab 04/14/25 14:16 Completed Troponin I Stat Lab 04/14/25 12:00 Completed Sodium Chloride 0.9% 1000 ml [Ns] 1,000 ml Med 04/14/25 12:47 Discontinued IV 999 mls/hr Vital Signs Vital signs: Vital Signs Temperature 97.8 F 04/14/25 11:16 Pulse Rate 79 04/14/25 11:16 Respiratory Rate 16 04/14/25 11:16 Blood Pressure 134/71 H 04/14/25 11:16 Pulse Oximetry (%) 99 04/14/25 11:16 Oxygen Delivery Method Room Air 04/14/25 11:16 Discharge Plan Plan Patient Disposition: Admit Acute Care w/in Hospital Problem List Clinical Impression: ASGRARIO (acute kidney injury), Chest pain, Chest wall mass PA/SENIOR CLINICAL DATA MANAGER Supervising Physician PA/SENIOR CLINICAL DATA MANAGER Supervising Physician: Roc Vázquez ENP [facility] Clinical Information Provided by: patient Medical Records reviewed [facility] Meds/Rx considered, not ordered None Labs/Rad/Tests considered, not ordered None Chronic Illness/Social Conditions Explain: Dr. Gudaarrama is his resistor winder, Dr. Arthur is his life sciences manager. 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 EKG Interpretation EKG #1: EKG Interpretation: EKG performed at 1120 shows a ventricular rate of 74 RI interval 167 QRS of 176 QTc of 383 this normal sinus rhythm. Labs Labs: interpreted by nm Lab(s) Interpretation(s): CBC shows no leukocytosis. Stable anemia with a hemoglobin of 9.3 and 28.3 respectively. No thrombocytopenia CMP shows no significant Asha imbalances BUN and creatinine are significant elevated with a BUN of 36 creatinine 3.7 this is significant increase to previous draws. Calcium and corrected calcium of 11.0. No transaminitis or T. bili elevation. Troponin is undetectable BMP is within acceptable limits Imaging Imaging interpretation: interpreted by nm Imaging Interpretation(s): Chest x-ray shows multiple masses suspicious for carcinoma. Medication Administration(s) Medication Administration History Acetaminophen (Acetaminophen 325 Mg Tablet) 650 mg PO Q6H PRN PRN Reason: Fever >101.5 Stop: 05/14/25 14:59 Acetaminophen (Acetaminophen 325 Mg Tablet) 650 mg PO Q6H PRN PRN Reason: PAIN SCALE 1-3 (mild Stop: 05/14/25 14:59 Dronabinol (Dronabinol 2.5 Mg Capsule) 2.5 mg PO BIDAC [facility] Stop: 05/14/25 16:59 Last Admin: 04/14/25 17:52 Dose: 2.5 mg Documented By: LUI Heparin Sodium (Porcine) (Heparin Sod Inj 5000 Unit/Ml Vial) 5,000 unit SC Q8HR [facility] Stop: 04/28/25 21:59 Last Admin: 04/14/25 21:50 Dose: 5,000 unit Documented By: XUAN Co-signed By: LIAM Ondansetron HCl (Ondansetron Inj 2 Mg/Ml Inj 2 Ml) 4 mg IVP Q6H PRN; Protocol PRN Reason: NAUSEA OR VOMITING Stop: 05/14/25 14:59 Oxycodone/Acetaminophen (Oxycodone/Apap 5/325 Tablet) 1 tab PO Q6H PRN PRN Reason: PAIN SCALE 4-6 (Moderate Stop: 04/19/25 14:59 Last Admin: 04/14/25 16:03 Dose: 1 tab Documented By: BEATRICE Pantoprazole Sodium (Pantoprazole 40 Mg Tablet) 40 mg PO QDAY OMAR Stop: 05/15/25 08:59 Pharmacy Consult (Pharmacy Renal Dose Adjustment 1 Ea) 1 each XX PRN PRN PRN Reason: CONSULT Stop: 05/14/25 16:35 Sennosides (Senna Tablet) 1 tab PO QDAY OMAR; Protocol Stop: 05/14/25 15:14 Last Admin: 04/14/25 15:46 Dose: 1 tab Documented By: BEATRICE Sertraline HCl (Sertraline Hcl 25 Mg Tablet) 50 mg PO HS OMAR Stop: 05/14/25 20:59 Last Admin: 04/14/25 21:49 Dose: 50 mg Documented By: [email or web address] Discontinued Medications Amlodipine Besylate (Amlodipine Besylate 5 Mg Tablet) 5 mg PO X1 ONE Stop: 04/14/25 15:08 Last Admin: 04/14/25 15:46 Dose: 5 mg Documented By: BEATRICE Denosumab (Denosumab Inj 60 Mg/Ml Syringe) 60 mg SC X1 ONE; Protocol Stop: 04/14/25 16:31 Last Admin: 04/14/25 18:04 Dose: Not Given Documented By: LUI Non-Admin Reason: Patient Refused Comments: would like to speak to MD before taking, Dr. Hamm contacted Sodium Chloride (Ns) 1,000 mls @ 999 mls/hr IV .Q1H1M ONE Stop: 04/14/25 13:47 Last Infusion: 04/14/25 14:50 Dose: Infused Documented By: Admin: 04/14/25 13:10 Dose: 999 mls/hr Documented By: BEATRICE Sodium Chloride (Ns) 1,000 mls @ 200 mls/hr IV .Q5H OMAR Stop: 04/14/25 20:23 Last Admin: 04/14/25 15:46 Dose: 200 mls/hr Documented By: BEATRICE Diagnosis Differential Diagnosis ED Complaint MDM: ACS [place] pneumonia
--- NOTE | 2025-04-14 12:03 | XR_ITS ---
Examination: CT chest, without intravenous contrast. CT abdomen, without intravenous contrast. CT pelvis, without intravenous contrast. 2-D sagittal and coronal reconstructions. 3-D reconstructions. Date and time of exam: 04/14/2025 at 12:16 p.m. CTDI vol (mgy) 6.42 DLP (MGycm) 473 Technique: Multiple CT images, 3.0 mm slice thickness, obtained chest, abdomen, pelvis, with the high-resolution 64 slice scanner.. Sagittal and coronal 2-D reconstructions are obtained. 3-D reconstructions Low dose protocols were performed. One or more of the following dose reduction techniques were used; automated exposure control, adjustment of the mA and/or KV according to patient size, use of iterative reconstruction technique. Findings: Chest: The large mass lesion seen on the chest x-ray overlying the right midlung is, in fact, an extrapleural mass measuring 7 x 3.5 cm in diameter. Then there is a smaller extrapleural mass destroying another rib just posterior to this huge extrapleural mass. On the left there is a very large extrapleural mass destroying the rib over the posterior base of the left lower lobe, on the chest film this represents the density seen behind the heart. It measures 4.5 cm in diameter. There is another extrapleural mass invading and destroying the rib posterolaterally overlying the lateral left lower lobe, on sequence 8, image 149 There are small definite areas of biapical pleural calcification. No primary malignancies are seen in either lung. There is very heavy calcification in the left main coronary artery. There are no mediastinal or hilar lesions. There is a prominent 1.9 cm lesion within the right transverse process of T10, and there are numerous additional malignant mass lesions involving the transverse processes bilaterally and many levels throughout the dorsal spine. The most significant 1 is located at T8, which is also invading the vertebral body, Virtually every single bone in the thoracic cage is extensively involved with malignant malignancy and cortical destruction. The manubrium and body of the sternum are both involved, and there are pathologic fractures of both the manubrium and body of the sternum. There are mild lesions involving the distal clavicles on both right and left side. There is destruction of posterior process of the scapula on the left. There is a large gastric hiatal hernia of no concern. Abdomen and pelvis: On this noncontrast CT I do not see any lesions in the liver. Patient status post cholecystectomy. Pancreas appears normal. Spleen is normal in size and appearance as are both and adrenal glands. On the noncontrast study I do not see any worrisome abnormalities in either right or left kidney, there is no para-aortic lymphadenopathy seen anywhere. The patient is status post posterior fusion at L5 and vertebroplasty at L5 and at L1. Both of these vertebral bodies are compressed about 80% The first thoracic vertebra shows about 15% anterior wedge compression fracture, there is mild compression of the superior vertebral endplate at T12 and T11. This is also prominent at L2. The entire bony sacrum is heavily involved with these neoplastic lesions, both iliac bones are likewise heavily involved and there is a prominent lesion noted along the anterior medial aspect of the right acetabulum. No bone destruction is there is at least an impending fracture of the anteromedial acetabulum seen on sequence 10, image 98 IMPRESSION: 1. There is the most widespread and most extensive malignant disease identified with virtually every the bone throughout the thorax, abdomen and pelvis, heavily involved. There are numerous moderate compression fractures throughout the spine. 2 there are numerous extrapleural mass lesions noted surrounding the lungs, destroying the adjacent ribs. There is a prominent gastric hiatal hernia. 3. There is heavy coronary artery calcification at the origin of the left main coronary. 4. I do not see anything to suggest a primary lesion anywhere in the chest or in the abdomen or retroperitoneum anywhere. 5. There is mild slightly irregular thickening of the anterior wall of the urinary bladder but I very strongly doubt that this relates to neoplasm 6. There is exceedingly minimal biapical pleural thickening as outlined above. Because of this, mesothelioma would be in the differential diagnosis, and careful occupational history is strongly recommended. 7. Given the very widespread and very extensive nature of the bony malignant disease, multiple myeloma is the considered to be the number one Probability.
[2025-04-14 12:24] LABS: Basophils # (Auto) 0.0 Thou/mm3 (0.0-0.2); Basophils % (Auto) 1 % (0-2.5); Eosinophils # (Auto) 0.1 Thou/mm3 (0.0-0.5); Eosinophils % (Auto) 2 % (0-10); Hematocrit 28.3 % (41.0-53.0); Hemoglobin 9.3 g/dL (13.5-16.0); Immature Granulocytes Auto 0.13 Thou/mm3 (0.00-0.00); Lymphocytes # (Auto) 1.5 Thou/mm3 (1.0-4.8); Lymphocytes % (Auto) 27 % (10-50); Mean Corpuscular HGB Conc 32.9 g/dl (31.0-37.0); Mean Corpuscular Hemoglobin 32.2 pg (25.0-35.0); Mean Corpuscular Volume 98 fL (80-100); Monocytes # (Auto) 0.5 Thou/mm3 (0.0-0.8); Monocytes % (Auto) 10 % (0-12); Neutrophils # (Auto) 3.2 Thou/mm3 (1.8-7.7); Neutrophils % (Auto) 58 % (37-80); Nucleated Red Blood Cell # 0.00 Thou/mm3 (0.00-0.00); Nucleated Red Blood Cell % 0 /100 WBC (0); Platelet Count 160 Thou/mm3 (140-440); RDW Standard Deviation 48.5 fL (35.1-43.9); Red Blood Count 2.89 Miln/mm3 (4.50-5.90); White Blood Count 5.5 Thou/mm3 (3.8-10.6)
[2025-04-14 12:41] LABS: B-Type Natriuretic Peptide 47 pg/mL (0-100)
[2025-04-14 12:43] LABS: Alanine Aminotransferase 18 U/L (10-49); Albumin, Serum 4.0 gm/dL (3.4-4.8); Albumin/Globulin Ratio 0.7 (1.2-2.2); Alkaline Phosphatase 111 U/L (46-116); Anion Gap 13 (7-16); Aspartate Amino Transferase 17 U/L (0-34); BUN/Creatinine Ratio 10 Ratio (12-20); Bilirubin,Total 0.3 mg/dL (0.3-1.2); Blood Urea Nitrogen 36 mg/dL (9-23); Calcium 11.0 mg/dL (8.3-10.6); Calcium (Corrected) 11.0 mg/dL (8.5-10.1); Carbon Dioxide 21.5 mMol/L (20.0-31.0); Chloride 102 mMol/L (98-107); Creatinine (Component) 3.7 mg/dL (0.6-1.3); Estimated Creatinine Clearance 15.1 mL/min (>60); Globulin 5.4 gm/dL (2.3-3.5); Glucose 98 mg/dL (74-106); LDH (Lactate Dehydrogenase) 229 U/L (120-246); Magnesium 2.0 mg/dL (1.6-2.6); Osmolality,Calculated 280 (275-295); Potassium 4.4 mMol/L (3.4-5.1); Sodium 136 mMol/L (136-145); Total Protein 9.4 gm/dL (5.7-8.2); Troponin I < 0.020 ng/mL (0.0-0.045); eGFR 16 See Note
[2025-04-14] MEDS: SODIUM CHLORIDE 0.9% 1000 ML 1,000 ML 999 ML IV (13:10)
[2025-04-14 14:49] LABS: INR 1.0 (0.9-1.3); Partial Thromboplastin Time 25.1 Seconds (22.0-36.0); Prothrombin Time 10.4 Seconds (9.0-12.2)
[2025-04-14 15:00] VITALS: BP 130/65; PULSE 82; RESP 14; TEMP 36.4; O2SAT 96
--- NOTE | 2025-04-14 15:04 | ECHO_ITS ---
Patient Info Name: Jeremy Coronel Age: 79 years : 1945 Gender: Male Ht: 168 cm Wt: 68 kg BSA: 1.78 m2 BP: 130 / 65 mmHg HR: 74 bpm Exam Date: 04/14/2025 4:53 PM Admit Date: 04/14/2025 Site: [facility] Room Number: [id number] Patient Status: I Exam Type: CA echo doppler complete Transport Aircrewman: Amy Tenorio Ordering Physician: Aminata Espitia Study Info Indications R/O CHF - Primary Location: [id number] Left Ventricular Outflow Tract Name Value Normal LVOT 2D LVOT Diameter 2.0 cm LVOT Doppler LVOT Peak Velocity 148 cm/s LVOT Mean Gradient 5 mmHg LVOT VTI 29 cm LVOT VTI/AV VTI Ratio 1.0 LVOT Stroke Volume 90 ml Mitral Valve Name Value Normal MV Doppler MV Mean Gradient 1 mmHg MV Decel [place] 287 cm/s2 MV PHT 50 ms MV Area (PHT) 4.4 cm2 4.0-5.0 MV Area (Cont Eq VTI) 3.3 cm2 MV Diastolic Function MV E Peak Velocity 50 cm/s MV A Peak Velocity 82 cm/s MV E/A 0.6 MV Annular TDI MV Septal e' Velocity 7.6 cm/s MV E/e' (Septal) 6.5 MV Lateral e' Velocity 5.6 cm/s MV E/e' (Lateral) 8.9 MV e' Average 6.59 cm/s MV E/e' (Average) 7.7 Tricuspid Valve Name Value Normal Estimated PAP/RSVP RA Pressure 8 mmHg <=5 TV Annular TDI TV Lateral Clara s' Velocity 14.6 cm/s >=9.5 Aortic Valve Name Value Normal AV 2D/MM AV Cusp Sep (MM) 1.0 cm AV Doppler AV Peak Velocity 156 cm/s AV Mean Gradient 5 mmHg AV VTI 30 cm AV Area (Cont Eq VTI) 3.0 cm2 >=3.0 AV Area (Cont Eq Yvon) 3.0 cm2 AV DI (Yvon) 0.95 AV Regurgitation 2D LVOT Area 3.1 cm2 Ventricles Name Value Normal LV Dimensions 2D/MM IVS Diastolic Thickness (2D) 1.0 cm 0.6-1.0 LVID Diastole (2D) 4.4 cm 4.2-5.8 LVIW Diastolic Thickness (2D) 1.1 cm 0.6-1.0 LVID Systole (2D) 3.2 cm 2.5-4.0 LVOT Diameter 2.0 cm LV Mass (2D Cubed) 158.21 g 88.00-224.00 LV Mass Index (2D Cubed) 89 g/m2 49-115 Relative Wall Thickness (2D) 0.50 <=0.42 IVS/LVIW Diastolic Thickness (2D) 0.91 0.00-1.50 LV Fractional Shortening/Ejection Fraction 2D/MM LV Fractional Shortening (2D) 27 % 25-43 LV EF (2D Teichholz) 53 % RV Dimensions 2D/MM TV Lateral Clara s' Velocity 14.6 cm/s >=9.5 Atria Name Value Normal LA Dimensions LA Volume (4C A-L) 40 ml LA Volume (BP A-L) 44 ml Left Ventricle Left ventricular chamber dimension is normal. Left ventricular systolic function is normal with visually estimated ejection fraction of 60-65%. There is concentric remodeling noted in the left ventricle. Left ventricular segmental wall motion is normal. There is grade I diastolic dysfunction in the left ventricle. Right Ventricle Right ventricular chamber dimension is normal. Right ventricular systolic function is normal. Left Atrium Left atrial chamber dimension is mildly enlarged. Right Atrium Right atrial chamber dimension is normal. Aortic Valve Aortic valve is not well visualized. Pulmonic Valve Pulmonary valve is not well visualized. Mitral Valve The mitral valve has normal leaflets. There is no mitral valve stenosis. There is trace mitral valve regurgitation. Tricuspid Valve The tricuspid valve leaflets are normal. There is no tricuspid valve stenosis. There is no tricuspid valve regurgitation. Unable to estimate pulmonary artery systolic pressure due to inadequate tricuspid regurgitant envelope. Pericardium/Pleural The pericardium appears normal. There is no pericardial effusion. No pleural effusion visualized. Inferior Vena Cava Inferior vena cava is not well visualized. Aorta The aortic measurements are indexed to age and body surface area. The aortic root at the sinus of Valsalva is not well visualized. The prox ascending aorta is not well visualized. Summary 1. Left ventricle size is normal and systolic function is normal. Estimated ejection fraction is 60-65%. There is grade I diastolic dysfunction. There is concentric remodeling noted. 2. Right ventricle chamber size is normal and systolic function is normal. 3. There is trace mitral valve regurgitation. 4. The left atrium is mildly enlarged. The right atrium is normal. 5. Not well visualized IVC with estimated RA pressure 8 mmHg. Report Signatures Finalized by Viktor Guadarrama on 04/14/2025 11:54 PM
[2025-04-14 15:32] VITALS: PULSE 77; RESP 18; RESP 95
--- NOTE | 2025-04-14 15:45 | PC.NURSE ---
Dr. Arthur at bedside for assessment.
[2025-04-14 15:46] VITALS: BP 130/65; PULSE 76
[2025-04-14] MEDS: SODIUM CHLORIDE 0.9% 1000 ML 1,000 ML 200 ML IV (15:46)
--- NOTE | 2025-04-14 16:26 | PD.RESHP ---
Documentation for date of: 04/14/25 HPI History of Present Illness Chief complaint: Chest and back pain for weeks History of present illness: HPI: A 79-year-old male patient with past medical history of coronary artery disease status post 1 stent placement in 2024, hypertension, ulcerative colitis, hyperlipidemia, osteoporosis, came to the ED after he was referred from his PCP due to chest pain. Patient reported that he has been having chest pain for the past week. Has no relation to exertion. He reported that his chest pain is generalized all over the chest and shoulders. He denied any palpitation however he reported some chest tightness that has been going on also for weeks. He reported that he has also some shortness of breath specially with exertion. He reported that he just recently seen his film library clerk and reportedly there was no concern. Although the patient has had stent placement in 2004 however patient is not on aspirin or Plavix for unknown reasons. Patient reported that 1 week ago he started to follow-up with the english instructor Dr. Cheatham to rule out multiple myeloma he reported that for the past few weeks he has been having left shoulder pain which MRI was done and showed a bone lesion for that reason he was referred to the oncologist. Upon review the patient's chart it was noted that the patient multiple myeloma SPECT was ordered by the oncologist and the still pending reads. Patient reported that he has some mild constipation and he thinks is secondary to his pain medication given that the patient take minimal dose of [place]. On questioning patient also reported loss of appetite, and mild weight loss however he denied any cough or night sweats. Denied any history of travel outside the country. Home medications:Amlodipine, cetirizine, [place], Leqvio, mesalamine, sertraline ED course: At the ED patient is vitally stable, his labs showed mild anemia with hemoglobin of 9.3 which is chronic, WBC was within normal limits, his immature granulocyte was 2%, coagulation study was normal, his chemistry showed BUN level of 36, serum creatinine of 3.7, calcium level of 11 corrected, magnesium 2.0, noticed high protein level of 9.4, however albumin was normal at 4.0, globulin was also high at 5.4 and the albumin/globulin ratio was 0.7. EKG was negative for any ischemic changes, chest abdomen and pelvis CT scan was ordered by the ED team and showed large mass lesion measuring 7 x 3.5 cm in diameter in the right midlung, also extrapleural mass destroying the rib in the same side. There is also extrapleural mass destroying the rib over the posterior base of the left lower lobe that measures 4.5 cm. There was also small definite areas of biapical pleural calcifications, also multiple osteolytic lesions and multiple vertebral compression fractures. PMH: As above PSX: None PFX: No family history of malignancy, mother of heart attack Social hx: Alcohol: Daily drink 2 beers and sometimes wine, Tobacco: Denied Illicit drugs: Denied Allergies: No known allergies Review of Systems Review of Systems Systems Reviewed: All systems reviewed, normal except as documented Exam Vital Signs Temp Pulse Resp BP Pulse Ox O2 Del Method 97.6 F 76 18 130/65 96 Room Air 04/14/25 15:00 04/14/25 15:46 04/14/25 15:32 04/14/25 15:46 04/14/25 15:00 04/14/25 15:00 Narrative Exam GEN: AOx3, able to speak full sentences HEENT: NC/AC, PERRLA, oral mucosa moist, neck supple CVS: RRR, S1-S2 present, no murmurs appreciated RESP: CTAB GI: soft,non distended, non tender, NBS MSK: able to move all 4 limbs, no lower extremity edema SKIN: warm and dry SEARCH ENGINE OPTIMIZATION STRATEGIST: CN II-XII and Sensation grossly intact. Results: Labs 04/14/25 12:00 04/14/25 12:00 Labs: Short CBC 04/14/25 Range/Units 12:00 WBC 5.5 D (3.8-10.6) Thou/mm3 Hgb 9.3 L (13.5-16.0) g/dL Hct 28.3 L (41.0-53.0) % Plt Count 160 D (140-440) Thou/mm3 BMP 04/14/25 12:00 Sodium 136 Potassium 4.4 Chloride 102 Carbon Dioxide 21.5 BUN 36 H Creatinine 3.7 H D Glucose 98 Calcium 11.0 H Cardiac Enzymes 04/14/25 Range/Units 12:00 Troponin I < 0.020 (0.0-0.045) ng/mL Liver Function 04/14/25 Range/Units 12:00 Total Bilirubin 0.3 (0.3-1.2) mg/dL AST 17 (0-34) U/L ALT 18 (10-49) U/L Alkaline Phosphatase 111 (46-116) U/L Albumin 4.0 (3.4-4.8) gm/dL Quality Measures Quality Measures VTE prophylaxis Advance care planning discussed with:: patient and spouse Medications Home Medications and Allergies Home Medications ?Medication ?Instructions ?Recorded ?Confirmed ?Type amlodipine 5 mg tablet 10 mg PO QDAY 11/14/23 04/14/25 History cetirizine 10 mg tablet 10 mg PO AC 11/14/23 04/14/25 History inclisiran 284 mg/1.5 mL 284 mg subcut .q6mo 09/22/24 04/14/25 History subcutaneous syringe (Leqvio) hydrocodone 10 mg-acetaminophen 1 tab PO QDAY PRN pain 04/03/25 04/14/25 History 325 mg tablet Held on 04/03/25. Instructions: Resume on 04/04/25. prednisone 20 mg tablet 20 mg PO QDAY 04/03/25 04/14/25 History Allergies Allergy/AdvReac Type Severity Reaction Status Date / Time No Known Allergies Allergy Verified 04/14/25 11:20 Visit Medications Acetaminophen (Acetaminophen 325 Mg Tablet) 650 mg PO Q6H PRN PRN Reason: Fever >101.5 Stop: 05/14/25 14:59 Acetaminophen (Acetaminophen 325 Mg Tablet) 650 mg PO Q6H PRN PRN Reason: PAIN SCALE 1-3 (mild Stop: 05/14/25 14:59 Dronabinol (Dronabinol 2.5 Mg Capsule) 2.5 mg PO BIDAC OMAR Stop: 05/14/25 16:59 Heparin Sodium (Porcine) (Heparin Sod Inj 5000 Unit/Ml Vial) 5,000 unit SC Q8HR OMAR Stop: 04/28/25 21:59 Sodium Chloride (Ns) 1,000 mls @ 200 mls/hr IV .Q5H OMAR Stop: 04/14/25 20:23 Last Admin: 04/14/25 15:46 Dose: 200 mls/hr Ondansetron HCl (Ondansetron Inj 2 Mg/Ml Inj 2 Ml) 4 mg IVP Q6H PRN; Protocol PRN Reason: NAUSEA OR VOMITING Stop: 05/14/25 14:59 Oxycodone/Acetaminophen (Oxycodone/Apap 5/325 Tablet) 1 tab PO Q6H PRN PRN Reason: PAIN SCALE 4-6 (Moderate Stop: 04/19/25 14:59 Last Admin: 04/14/25 16:03 Dose: 1 tab Pantoprazole Sodium (Pantoprazole 40 Mg Tablet) 40 mg PO QDAY OMAR Stop: 05/15/25 08:59 Sennosides (Senna Tablet) 1 tab PO QDAY OMAR; Protocol Stop: 05/14/25 15:14 Last Admin: 04/14/25 15:46 Dose: 1 tab Sertraline HCl (Sertraline Hcl 25 Mg Tablet) 50 mg PO HS OMAR Stop: 05/14/25 20:59 Discontinued Medications Amlodipine Besylate (Amlodipine Besylate 5 Mg Tablet) 5 mg PO X1 ONE Stop: 04/14/25 15:08 Last Admin: 04/14/25 15:46 Dose: 5 mg Sodium Chloride (Ns) 1,000 mls @ 999 mls/hr IV .Q1H1M ONE Stop: 04/14/25 13:47 Last Infusion: 04/14/25 14:50 Dose: Infused Assessment & Plan Plan A 79-year-old male patient with past medical history of coronary artery disease status post 1 stent placement in 2024, hypertension, ulcerative colitis, hyperlipidemia, osteoporosis, came to the ED after he was referred from his PCP due to chest pain. Patient reported that he has been having chest pain for the past week. Patient was found to have ribs osteolytic lesions and compression fraction of multiple thoracic and lumbar vertebrae. Patient was admitted for management of S[place]RARIO, hypercalcemia. #Chest pain most likely secondary to bone destruction #Osteolytic lesion, multiple, most likely secondary to multiple myeloma versus less likely other malignancy #Thoracic vertebrae fracture #Hypercalcemia #History of osteoporosis Patient presented to the ED with chest pain, questioning reported that the pain has been going on for days to weeks. EKG and troponin were negative CT abdomen and pelvis and chest showed large mass lesion measuring 7 x 3.5 cm in diameter in the right midlung, also extrapleural mass destroying the rib in the same side. There is also extrapleural mass destroying the rib over the posterior base of the left lower lobe that measures 4.5 cm. There was also small definite areas of biapical pleural calcifications, also multiple osteolytic lesions and multiple vertebral compression fractures. Patient was found to have low protein/albumin ratio, S[place]RARIO, anoxia, weight loss, hypercalcemia which indicate high possibility of multiple myeloma Patient was found to have calcium level of 11.1. Plan ? Pain management per protocol ? Start the patient on denosumab 60 mcg subcutaneous x 1, ? Will reach out to the oncologist Dr. Cheatham for further follow-up and recommendations ? NS 200 cc/h for 1 bag and then decrease the rate to 80 mL/h if calcium level still elevated ? Ordered bone marrow aspiration and biopsy #SAGRARIO most likely prerenal and renal secondary to potential multiple myeloma Patient was found to have calcium level of 11.1 which may cause tubular diabetes insipidus. Patient was found to be dehydrated, serum creatinine at baseline was 1.5 however on presentation serum creatinine is 3.2 Patient does not seem to be take any nephrotoxic medications. Given the patient osteolytic lesions, hypercalcemia, SAGRARIO we believe most likely his SAGRARIO secondary to multiple myeloma Plan ? Nephrology consultation to Dr. Arthur was sent, recommendations appreciated ? Denosumab recommended by nephrology as above ? SAGRARIO workup including urine electrolytes, urine proteins, urine urea, urine creatinine, and renal ultrasound was ordered ? Pharmacy to dose medications ? Avoid nephrotoxic medications ? Dialysis if indicated #History of ulcerative colitis Patient reported that he has history of ulcerative colitis and its wall controlled with mesalamine. Last colonoscopy was last year and it was negative for any malignancy Plan ? Continue home medication mesalamine ? Cancer screening with CA 19, CEA, alpha-fetoprotein) #History of coronary artery disease status post 1 stent placement On questioning patient denied any exertional chest pain, symptoms did not indicate that the patient has typical chest pain. Troponin and EKG were negative for any ischemic changes BNP was within normal limits Plan ? Strict in and out ? Will reach out to the film library clerk Dr. Guadarrama if needed #History of hyperlipidemia Plan ? Resume the patient on medication Leqvio after med reconciliation. Hospital Maintenance: FEN: Cardiac diet DVT ppx: Heparin subcu GI ppx: Protonix p.o. IV lines: PIV [place]: None Code status: Full code Dispo: Admit to med/tele - Patient's plan and care discussed with my attending, Dr. Sapphire Espitia MD Internal Medicine PGY-3 Attending Provider Attestation/Addendum I have seen and examined the patient. I was physically present for the camacho portions of the services provided including history, physical exam, diagnosis, treatment plans and orders. I agree with assessment and plan of care as documented by residents. After examination of the patient and review of the clinical data I feel that this patient needs admission to the hospital for further treatment/evaluation. Even though this this note was carefully revised there may still be minor errors in stranding supervisor due to voice recognition software. Alejandra Leary MD
[2025-04-14 16:39] VITALS: BMI 24.3
--- NOTE | 2025-04-14 16:53 | ESCONSULT_ITS ---
History of Present Illness Data of Consult Consult date: 04/14/25 Requesting Physician: Alejandra Leary MD Primary Care Provider: Yoly Polo MD Consult Narrative Reason for consult: SAGRARIO, hypercalcemia History of present illness: Informant at bedside Mr. Coronel is 79-year-old male with history of CAD s/p stent (2004), hypertension, ulcerative colitis (follows Dr. Anderson), severe osteoporosis, and chronic back pain admitted for evaluation of acute kidney injury. Patient was admitted in January 2025 with a similar episode and noted to be in acute renal failure. At that time his symptoms were related to hypercalcemia, weight loss and Forteo. Workup at that time showed a lumbar compression fracture. Apparently patient had an MRI of the right shoulder at [facility] and noted to have significant osteolytic lesions. That prompted for cancer center evaluation. Dr. Camara recommended bone marrow aspiration and biopsy along with FISH analysis. High on the differential was multiple myeloma. His home medications included amlodipine, cetirizine, [place], Plaquenil, mesalamine, prednisone, sertraline 04/14/2025 ER labs showed WBC 5.5, hemoglobin 9.3, platelets 160. INR 1. Sodium 136, potassium 4.4,Creatinine 3.7, GFR 16, calcium 11, magnesium 2, LFTs normal, total protein 9.4 g, albumin 4, globulin 5.4, AFP normal, CEA normal, CA 19-9 normal, urine tox screen pending. Patient had a chest x-ray which showed a mass in the right lung, pathologic fracture in the right eighth rib. CT chest abdomen and pelvis showed extrapleural 7 cm mass in the right lung. Multiple small extrapleural masses destroying the ribs, malignant lesions in the thoracic/lumbar/sacral vertebral bodies-findings consistent with myeloma Patient was started on normal saline. Renal consultation requested for hypercalcemia, SAGRARIO. cc:: cc: Alejandra Leary MD Review of Systems Review of Systems Narrative Review of Systems: CONSTITUTIONAL: Patient denies any fever, chills. Complaining of fatigue HEENT: Denies any visual disturbances or hearing problems. CARDIOVASCULAR: Patient denies any chest pain, shortness of breath, swelling in the lower extremities. PULMONARY: Patient denies any shortness of breath, cough. GASTROINTESTINAL: Patient denies any abdominal pain, constipation, nausea, vomiting, diarrhea. GENITOURINARY: Patient denies any urinary symptoms of burning or frequency or hematuria, denies any form in the urine. SKIN: Denies any rash. MUSCULOSKELETAL: Complaining of joint pains and back pain NEUROLOGICAL: Denies any neurological problems of strokes, seizures or confusion. Denies any memory problems. PSYCHIATRIC: Denies any depression or anxiety. LYMPHATICS : No lymphadenopathy Past Medical History Past Medical History NEUROLOGIC: Negative Neurological Disorders or Seizures CARDIAC: Positive Cardiac Disorders, Coronary Artery Disease, Hypercholesterolemia and Hypertension; Negative Congestive Heart Failure RESPIRATORY: Positive Chronic Obstructive Pulmonary Disease (COPD) and Sleep Apnea; Negative Respiratory Disorders, Asthma or Pneumonia GASTROINTESTINAL: Positive Gastrointestinal Disorders, Colitis, Ulcerative Colitis, Gastroesophageal Reflux Disease and Polyps; Negative Hepatitis or Obesity GENITOURINARY: Positive Genitourinary Disorders and Benign Prostatic Hyperplasia; Negative Renal Disease MUSCULOSKELETAL: Positive Musculoskeletal Disorders, Bone Cancer, Arthritis, Osteoporosis and Fractures ENT: Positive Cataracts (removed 1 yr ago) and Deafness (hard of hearing) ENDOCRINE: Negative Endocrine Disorders, Diabetes Mellitus Type 1 or Diabetes Mellitus Type 2 HEMATOLOGIC: Positive Anemia; Negative Blood Disorders OTHER HISTORY: Positive Hospitalization, Shingles, Falls, Radiation Therapy, Chicken Pox, Measles, Mumps and Cancer; Negative Autoimmune Disease, Developmental Delay, Blood Transfusions, Anesthesia Reactions, Chemotherapy, MRSA, VRSA, Vancomycin-Resistant Enterococci, Human Immunodeficiency Virus (HIV), Rubella (Chinese Measles), Pertussis or Clostridium Difficile Family History FAMILY HISTORY: Positive Family Respiratory Disorders, Family Cardiac Disorders, Family Cancer and Family Surgery; Negative Family Psychiatric Problems, Family Gastrointestinal Problems or Family Anesthesia Reaction Surgical History SURGICAL: Positive Cardiac Surgery, Coronary Stent, Abdominal Surgery and of Back Surgery; Negative Endocrine Surgery, Thyroidectomy, Ear Surgery, Nephrectomy or Joint Replacement Social History SMOKING STATUS: Never smoker ALCOHOL LAST INTAKE: Days (ago) Meds Home Medications and Allergies Home Medications ?Medication ?Instructions ?Recorded ?Confirmed ?Type amlodipine 5 mg tablet 10 mg PO QDAY 11/14/2304/14 History cetirizine 10 mg tablet 10 mg PO AC 11/14/23 5 History inclisiran 284 mg/1.5 mL 284 mg subcut .q6mo 09/22/24 04/14/25 History subcutaneous syringe (Leqvio) hydrocodone 10 mg-acetaminophen 1 tab PO QDAY PRN pain 04/03/25 04/14/25 History 325 mg tablet Held on 04/03/25. Instructions: Resume on 04/04/25. prednisone 20 mg tablet 20 mg PO QDAY 04/03/2504/14 History Allergies Allergy/AdvReac Type Severity Reaction Status Date / Time No Known Allergies Allergy Verified 04/14/25 11:20 Exam Vital Signs Temp Pulse Resp BP Pulse Ox O2 Del Method 36.4 C 76 18 130/65 96 Room Air 04/14/25 15:00 04/14/25 15:46 04/14/25 15:32 04/14/25 15:46 04/14/25 15:00 04/14/25 15:00 Narrative Exam General: Awake, conversant, mild fatigue. HEENT: Mucous membranes mildly dry. Neck: No JVD. Cardiac: Regular rate and rhythm, no murmurs. Lungs: Clear to auscultation bilaterally. Abdomen: Soft, non-tender, nondistended, +BS. Extremities: No edema. Neuro: Non-focal, moves all extremities. Skin: Warm, dry, no rash. Results Labs 04/14/25 12:00 04/14/25 12:00 Labs: Short CBC 04/14/25 Range/Units 12:00 WBC 5.5 D (3.8-10.6) Thou/mm3 Hgb 9.3 L (13.5-16.0) g/dL Hct 28.3 L (41.0-53.0) % Plt Count 160 D (140-440) Thou/mm3 BMP 04/14/25 12:00 Sodium 136 Potassium 4.4 Chloride 102 Carbon Dioxide 21.5 BUN 36 H Creatinine 3.7 H D Glucose 98 Calcium 11.0 H Cardiac Enzymes 04/14/25 Range/Units 12:00 Troponin I < 0.020 (0.0-0.045) ng/mL Liver Function 04/14/25 Range/Units 12:00 Total Bilirubin 0.3 (0.3-1.2) mg/dL AST 17 (0-34) U/L ALT 18 (10-49) U/L Alkaline Phosphatase 111 (46-116) U/L Albumin 4.0 (3.4-4.8) gm/dL Assessment & Plan Additional Assessment & Plan Additional Plan: 79-year-old male with age-related CKD and SAGRARIO likely prerenal secondary to volume depletion and humoral hypercalcemia of malignancy. # SAGRARIO Likely prerenal etiology due to dehydration and humoral hypercalcemia; agree with aggressive fluid resuscitation Plan: * Trend BMP daily * Strict I&O and daily weights. * Had a long conversation with the regarding dialysis if no improvement in renal function. # Hypercalcemia patient asymptomatic. Probably related to underlying malignancy-myelo myeloma Plan: * 1 dose of denosumab given # CKD III Imaging and prior data show bilateral cortical thinning and renal scarring, consistent with chronic kidney disease likely secondary to longstanding hypertension and vascular disease. Plan: * Educate patient regarding CKD precautions (avoid NSAIDs, contrast, dehydration). * Maintain renal-friendly diet and follow up with outpatient nephrology for CKD management. * BP and glycemic control medical terminologist. # Multiple lytic lesions Workup for myeloma pending Plan: * Continue with IV fluids, pain management * Will order bone marrow biopsy and aspiration # Hypertension Currently normotensive Plan: * Per primary team # Osteoporosis History of Forteo use with adverse effects. Plan: * Avoid bisphosphonates during SAGRARIO. Care discussed with primary team. Thank you Alejandra for allowing me to participate in the care of Mr. Luna
[2025-04-14 17:17] LABS: AFP Non-Pregnant 1.90 ng/mL (<8.10); Carcinoembryonic Antigen < 0.5 ng/mL (0.0-5.0)
--- NOTE | 2025-04-14 18:05 | PC.NURSE ---
Patient refused Prolia Inj, Dr. Hamm made aware. Patient would like to speak to MD before taking.
[2025-04-14 20:00] VITALS: BP 154/74; PULSE 87; RESP 17; TEMP 36.1; O2SAT 92
[2025-04-14] MEDS: SERTRALINE HCL 25 MG TABLET 50 MG PO (21:49)
[2025-04-14] MEDS: HEPARIN SOD INJ 5000 UNIT/ML VIAL SC (21:50)
[2025-04-14 23:30] VITALS: PULSE 74; RESP 18; RESP 94; O2SAT 94
[2025-04-15] VITALS (11 sets, daily range): BP systolic 117–143; BP diastolic 62–80; PULSE 65–98; RESP 14–95; TEMP 36.1–36.6; O2SAT 93–96
--- NOTE | 2025-04-15 00:53 | ESCONSULT_ITS ---
RE: ALEXIS PALMA : 1945 DATE OF CONSULTATION: 04/14/2025 CONSULTING PHYSICIANS: Alejandra Leary MD and Yoselyn Arthur MD. REASON FOR CONSULTATION: Evaluation of patient with chest pain and known history of CAD stent placement. HISTORY OF PRESENT ILLNESS: The patient is very well known to me, has a long- standing history of hypercholesterolemia, hypertension, CAD, status post stent placement in the LAD in 2017, and a history of multiple medical issues. Doing fairly well until recently. Patient, last week or so, has been having severe generalized pain, mostly chronic back pain, but now having rib cage and chest wall pain, mostly left-sided, and precordial chest wall pain all around the chest and a generalized body pain. Patient admitted with these symptoms. He was also found to have acute kidney injury. Normally, the patient does have baseline creatinine with slight elevation, but is admitted to the hospital with acute kidney injury and renal failure. His creatinine normally at baseline is around 1.0 and normal kidney function, but he has severe kidney injury with a creatinine of 3.7, and EGFR is down to 16. The patient's imaging studies showed extensive osteolytic lesions in multiple segments. CT scan chest showed evidence of possible metastatic disease. Also, a large mass-like lesion is seen in the chest x-ray over the right mid lung, an extrapleural mass, 7 x 3.5 cm. There is also a small extrapleural mass destroying another rib. Posterior to this, there are extensive extrapleural masses destroying the ribs over the left lower lobe. I discussed possible pleural-based disease versus metastatic carcinoma, possible melanoma, and other pathological issues. The patient continues to have this pain, which appears to be noncardiac in nature. EKG is unremarkable. Rest of the exam is unremarkable. EKG shows within normal limits. Cardiac echo was also performed and showed normal left ventricular function. Patient is not suffering any typical angina pectoris. ALLERGIES: None. MEDICATIONS AT HOME: The patient has multiple medications at home. Has been on blood pressure medication including amlodipine 10 mg, calcium. He has been on Leqvio for hypercholesterolemia. PAST MEDICAL HISTORY: CAD, status post stent placement in LAD, hypertension, and hypercholesterolemia. SOCIAL HISTORY: with his . Does not smoke or drink any alcoholic beverages. FAMILY HISTORY: Noncontributory. PHYSICAL EXAMINATION: GENERAL: Male, alert, awake, in no acute distress. VITAL SIGNS: Blood pressure 150/70, pulse 87, respirations 16, temperature normal, and oxygen saturation 98% on room air. HEENT: Head is atraumatic. NECK: Supple. No JVD. CHEST: Symmetrical. LUNGS: Decreased breath sounds. No rales or rhonchi. There is chest wall tenderness. HEART: S1 and S2, regular. No gallops. ABDOMEN: Thin and soft. EXTREMITIES: No edema. GENITOURINARY/RECTAL: Not performed. NEUROLOGIC: Normal. IMPRESSION: 1. Chest pain, probably chest wall pain due to multiple metastatic lesions involving ribs. 2. Hypertension. 3. Hypercholesterolemia. 4. Status post stent to the left anterior descending artery. 5. Calcification of left main and left anterior descending artery on CT scan. 6. Acute kidney injury and acute renal failure. RECOMMENDATION: The patient appears to be cardiac-cortez stable. Recommend getting an oncology consultation. Also, a nephrology consultation. The patient may require dialysis because the patient has acute renal failure. Cardiac-cortez, he is stable. I do not think there are any acute cardiac events. I would like to thank you for referring this patient for cardiovascular evaluation. We will be glad to follow the patient with you. DT: 23:45:38 TT: 00:52:00 Ref: [id number] - TID: [id number]
[2025-04-15 05:33] LABS: Basophils # (Auto) 0.0 Thou/mm3 (0.0-0.2); Basophils % (Auto) 0 % (0-2.5); Eosinophils # (Auto) 0.1 Thou/mm3 (0.0-0.5); Eosinophils % (Auto) 2 % (0-10); Hematocrit 24.1 % (41.0-53.0); Immature Granulocytes Auto 0.09 Thou/mm3 (0.00-0.00); Lymphocytes # (Auto) 1.2 Thou/mm3 (1.0-4.8); Lymphocytes % (Auto) 24 % (10-50); Mean Corpuscular HGB Conc 33.2 g/dl (31.0-37.0); Mean Corpuscular Hemoglobin 32.4 pg (25.0-35.0); Mean Corpuscular Volume 98 fL (80-100); Monocytes # (Auto) 0.5 Thou/mm3 (0.0-0.8); Monocytes % (Auto) 9 % (0-12); Neutrophils # (Auto) 3.1 Thou/mm3 (1.8-7.7); Neutrophils % (Auto) 63 % (37-80); Nucleated Red Blood Cell # 0.00 Thou/mm3 (0.00-0.00); Nucleated Red Blood Cell % 0 /100 WBC (0); Platelet Count 138 Thou/mm3 (140-440); RDW Standard Deviation 47.1 fL (35.1-43.9); Red Blood Count 2.47 Miln/mm3 (4.50-5.90); White Blood Count 4.9 Thou/mm3 (3.8-10.6)
[2025-04-15 05:55] LABS: Hemoglobin 8.0 g/dL (13.5-16.0)
[2025-04-15 06:19] LABS: Alanine Aminotransferase 18 U/L (10-49); Albumin, Serum 3.6 gm/dL (3.4-4.8); Albumin/Globulin Ratio 0.9 (1.2-2.2); Alkaline Phosphatase 88 U/L (46-116); Anion Gap 12 (7-16); Aspartate Amino Transferase 24 U/L (0-34); BUN/Creatinine Ratio 10 Ratio (12-20); Bilirubin,Total 0.2 mg/dL (0.3-1.2); Blood Urea Nitrogen 34 mg/dL (9-23); Calcium 10.0 mg/dL (8.3-10.6); Calcium (Corrected) 10.3 mg/dL (8.5-10.1); Carbon Dioxide 21.5 mMol/L (20.0-31.0); Chloride 107 mMol/L (98-107); Creatine Kinase 21 U/L (34-171); Creatinine (Component) 3.5 mg/dL (0.6-1.3); Estimated Creatinine Clearance 16.0 mL/min (>60); Globulin 4.2 gm/dL (2.3-3.5); Glucose 90 mg/dL (74-106); Magnesium 1.8 mg/dL (1.6-2.6); Osmolality,Calculated 287 (275-295); Phosphorous 5.4 mg/dL (2.4-5.1); Potassium 4.6 mMol/L (3.4-5.1); Sodium 140 mMol/L (136-145); Total Protein 7.8 gm/dL (5.7-8.2); eGFR 17 See Note
[2025-04-15] MEDS: PANTOPRAZOLE 40 MG TABLET PO (08:04)
[2025-04-15 08:55] LABS: Collection Type, Urine Clean Catch
[2025-04-15 09:11] LABS: Chloride,Urine Random 83.3 mMol/L (55.0-125.0); Creatinine,Random Urine 44 mg/dL (30-125); Potassium,Urine Random 31 mMol/L (12-62); Protein Total, Random Urine 118 mg/dL (1-14); Sodium,Urine Random 83.4 mMol/L (20.0-110.0); Urea Nitrogen, Random Urine 220.0 mg/dL (350.0-1000.0)
[2025-04-15 09:16] LABS: Bilirubin,Urine Negative (Negative); Blood,Urine Negative (Negative); Clarity,Urine Clear (Clear/Hazy); Color,Urine Lt-Yellow (Lt Yel-Yel); Glucose, Urine Negative (Negative); Ketones,Urine Negative (Negative); Leukocyte Esterase,Urine Negative (Negative); Nitrite,Urine Negative (Negative); PH,Urine 6.5 (5.0-7.0); Protein,Urine Trace (Neg - Trace); RBC,Urine < 1 /hpf (0-3); Specific Gravity,Urine 1.009 (1.001-1.035); Squamous Epithelial Cell,Urine < 1 /hpf (0-5); Urobilinogen,Urine Negative mg/dL (0.0-1.0); WBC,Urine 1 /hpf (0-5)
[2025-04-15 09:27] LABS: Amphetamine/Methamp Scrn,U Negative (Negative); Barbiturate Screen,Urine Negative (Negative); Benzodiazepines Screen,Urine Negative (Negative); Benzoylecgonine Screen, Ur Negative (Negative); Fentanyl Screen,Urine Negative (Negative); Opiate Screen,Urine Positive (Negative); THC Screen,Urine Negative (Negative)
--- NOTE | 2025-04-15 09:58 | PC.NURSE ---
Recvd order for Bone Marrow Biopsy, Discused with Dr. Stephenson, he is ok to proceed. Called Lab and spoke with Vannessa, stated Dr. Saba Pathologist could not proceed due to time limit. Called Dr. Espitia and made him aware.
--- NOTE | 2025-04-15 10:07 | ESPR_ITS ---
Documentation for date of: 04/15/25 Subjective Subjective Interval history: Informant at bedside Mr. Coronel is 79-year-old male with history of CAD s/p stent (2004), hypertension, ulcerative colitis (follows Dr. Anderson), severe osteoporosis, and chronic back pain admitted for evaluation of acute kidney injury. Patient was admitted in January 2025 with a similar episode and noted to be in acute renal failure. At that time his symptoms were related to hypercalcemia, weight loss and Forteo. Workup at that time showed a lumbar compression fracture. Apparently patient had an MRI of the right shoulder at [facility] and noted to have significant osteolytic lesions. That prompted for cancer center evaluation. Dr. Camara recommended bone marrow aspiration and biopsy along with FISH analysis. High on the differential was multiple myeloma. His home medications included amlodipine, cetirizine, [place], Plaquenil, mesalamine, prednisone, sertraline 04/14/2025 ER labs showed WBC 5.5, hemoglobin 9.3, platelets 160. INR 1. Sodium 136, potassium 4.4,Creatinine 3.7, GFR 16, calcium 11, magnesium 2, LFTs normal, total protein 9.4 g, albumin 4, globulin 5.4, AFP normal, CEA normal, CA 19-9 normal, urine tox screen pending. Patient had a chest x-ray which showed a mass in the right lung, pathologic fracture in the right eighth rib. CT chest abdomen and pelvis showed extrapleural 7 cm mass in the right lung. Multiple small extrapleural masses destroying the ribs, malignant lesions in the thoracic/lumbar/sacral vertebral bodies-findings consistent with myeloma Patient was started on normal saline. Renal consultation requested for hypercalcemia, SAGRARIO. 04/15/2025 patient currently seen in medical floor. Resting comfortably. Denies any chest pain, shortness of breath. Denies any nausea, vomiting. Labs and medications reviewed. Hemoglobin 7.4, Cr 3.4. Continue with IV fluids. Calcium seems to be better. Pending bone marrow biopsy and aspiration Review of Systems Review of Systems Narrative Review of Systems: CONSTITUTIONAL: Patient denies any fever, chills. Complaining of fatigue HEENT: Denies any visual disturbances or hearing problems. CARDIOVASCULAR: Patient denies any chest pain, shortness of breath, swelling in the lower extremities. PULMONARY: Patient denies any shortness of breath, cough. GASTROINTESTINAL: Patient denies any abdominal pain, constipation, nausea, vomiting, diarrhea. GENITOURINARY: Patient denies any urinary symptoms of burning or frequency or hematuria, denies any form in the urine. SKIN: Denies any rash. MUSCULOSKELETAL: Complaining of joint pains and back pain NEUROLOGICAL: Denies any neurological problems of strokes, seizures or confusion. Denies any memory problems. PSYCHIATRIC: Denies any depression or anxiety. LYMPHATICS : No lymphadenopathy Exam Vital Signs Temp Pulse Resp BP Pulse Ox O2 Del Method 36.5 C 90 16 132/67 H 93 L Room Air 04/15/25 20:00 04/15/25 20:00 04/15/25 20:00 04/15/25 20:00 04/15/25 20:00 04/15/25 20:00 Narrative Exam GENERAL APPEARANCE: Patient seems to be comfortable, adequately hydrated and nourished. HEENT: EOMI, PERRLA NECK: Neck supple, no JVD or bruit CARDIOVASCULAR: Heart regular, no murmurs LUNGS/CHEST: Chest clear to auscultation. No rales, rhonchi, wheezing ABDOMEN: Soft, nontender, nondistended. No masses. Normal bowel sounds. EXTREMITIES: No edema, clubbing or cyanosis. SKIN: Skin exam normal without any rashes MUSCULOSKELETAL: Musculoskeletal exam normal PSYCHIATRIC: Normal mood, affect LYMPHATICS: No lymphadenopathy noted NEUROLOGICAL : No neurological deficits Objective Labs 04/16/25 04:50 04/16/25 04:50 Labs: Laboratory Results - last 24 hr 04/15/25 04/15/25 04/15/25 04:55 08:15 18:47 WBC 4.9 RBC 2.47 L Hgb 8.0 L 8.7 L Hct 24.1 L 25.5 L MCV 98 MCH 32.4 MCHC 33.2 RDW Std Deviation 47.1 H Plt Count 138 L Neut % (Auto) 63 Lymph % (Auto) 24 [place] % (Auto) 9 Eos % (Auto) 2 Baso % (Auto) 0 Neut # (Auto) 3.1 Lymph # (Auto) 1.2 [place] # (Auto) 0.5 Eos # (Auto) 0.1 Baso # (Auto) 0.0 Immature Gran # (Auto) 0.09 H Absolute Nucleated RBC 0.00 Immature Gran % 2 H Nucleated RBC % 0 Sodium 140 138 Potassium 4.6 4.2 Chloride 107 106 Carbon Dioxide 21.5 22.4 Anion Gap 12 10 BUN 34 H 33 H Creatinine 3.5 H 3.4 H Estim Creat Clear Calc 16.0 L 13.1 L eGFR 17 L 18 L BUN/Creatinine Ratio 10 L 10 L Glucose 90 110 H Calculated Osmolality 287 283 Calcium 10.0 10.4 Corrected Calcium 10.3 H 10.9 H Phosphorus 5.4 H Magnesium 1.8 Total Bilirubin 0.2 L 0.2 L AST 24 21 ALT 18 23 Alkaline Phosphatase 88 D 98 Total Creatine Kinase 21 L Total Protein 7.8 8.1 Albumin 3.6 3.4 Globulin 4.2 H 4.7 H Albumin/Globulin Ratio 0.9 L 0.7 L Ur Collection Type Clean Catch Urine Color Lt-Yellow Urine Clarity Clear Urine pH 6.5 Ur Specific [place] 1.009 Urine Protein Trace Urine Glucose (UA) Negative Urine Ketones Negative Urine Blood Negative Urine Nitrite Negative Urine Bilirubin Negative Urine Urobilinogen (Auto) Negative Ur Leukocyte Esterase Negative Urine RBC < 1 Urine WBC 1 Ur Squamous Epith Cells < 1 Urine Bacteria None Ur Random Creatinine 44 U Random Total Protein 118 H Ur Random Sodium 83.4 Ur Random Potassium 31 Ur Random Chloride 83.3 Ur Random Urea Nitrogn 220.0 L Urine Opiates Screen Positive A Urine Fentanyl Screen Negative Ur Barbiturates Screen Negative U Amphetamin/Meth Scrn Negative U Benzodiazepines Scrn Negative U Cocaine Metab Screen Negative U Marijuana (THC) Screen Negative Blood Type A Negative Antibody Screen NEGATIVE Blood Bank Wristband ID Yes Assessment & Plan Additional Assessment & Plan Additional Plan: 79-year-old male with age-related CKD and SAGRARIO likely prerenal secondary to volume depletion and humoral hypercalcemia of malignancy. # SAGRARIO Likely prerenal etiology due to dehydration and humoral hypercalcemia; agree with aggressive fluid resuscitation Plan: * Trend BMP daily * Strict I&O and daily weights. * Had a long conversation with the regarding dialysis if no improvement in renal function. * Cr 3.4 # Hypercalcemia patient asymptomatic. Probably related to underlying malignancy-myeloma Plan: * 1 dose of denosumab given continue with IV fluids # CKD III Imaging and prior data show bilateral cortical thinning and renal scarring, consistent with chronic kidney disease likely secondary to longstanding hypertension and vascular disease. Plan: * Educate patient regarding CKD precautions (avoid NSAIDs, contrast, dehydration). * Maintain renal-friendly diet and follow up with outpatient nephrology for CKD management. * BP and glycemic control long-term. # Multiple lytic lesions Workup for myeloma pending Plan: * Continue with IV fluids, pain management * Will order bone marrow biopsy and aspiration # Hypertension Currently normotensive Plan: * Per primary team # Osteoporosis History of Forteo use with adverse effects. Plan: * Avoid bisphosphonates during SAGRARIO. Care discussed with primary team. Thank you Alejandra for allowing me to participate in the care of Mr. Luna
[2025-04-15] MEDS: SODIUM CHLORIDE 0.9% 1000 ML 1,000 ML 85 ML IV ×2 (10:09→20:59)
[2025-04-15] MEDS: SEVELAMER CARBONATE 800 MG TABLET PO (10:09)
[2025-04-15] MEDS: Magnesium Sulfate 2 GM Ivpb 2 GM/50 ML BAG IV (10:09)
--- NOTE | 2025-04-15 15:54 | ESPR_ITS ---
<Statement entered by Aminata Espitia MD - 04/16/25 18:17> Patient was seen and examined at bedside. Agree with assessment and plan in this note. - Patient's plan and care discussed with my attending, Dr. Sapphire Espitia MD Internal Medicine PGY- Documentation for date of: 04/15/25 Subjective Subjective Interval history: Overnight patient refused denosumab P patient seen and examined at bedside. Reports muscular chest comfort and chronic back pain control Tylenol and Hanna. Vitals are stable. Labs reviewed and noted hemoglobin 8 and hematocrit 24.1. Renal panel bun 34, creatinine 3.5, GFR 17, calcium 10.3 and phosphorus of 5.4 for which patient received sevelamer 800 mg x 1. Pending multiple myeloma SPECT, urine electrolytes study, CA 19-9 and CEA and alpha-fetoprotein, pulmonary biopsies. Will continue with IV fluids, CPAP at night. Will follow- up with H&H and CMP at 5 PM. Follow-up with oncology Dr. Rothman. Exam Vital Signs Temp Pulse Resp BP Pulse Ox O2 Del Method 96.9 F 70 15 117/62 95 Room Air 04/15/25 12:28 04/15/25 12:28 04/15/25 12:28 04/15/25 12:28 04/15/25 12:28 04/15/25 12:28 Narrative Exam General: Awake, conversant, mild fatigue. HEENT: Mucous membranes mildly dry. Neck: No JVD. Cardiac: Regular rate and rhythm, no murmurs. Lungs: Clear to auscultation bilaterally. Abdomen: Soft, non-tender, nondistended, +BS. Extremities: No edema. Neuro: Non-focal, moves all extremities. Skin: Warm, dry, no rash. Objective Labs 04/15/25 04:55 04/15/25 04:55 Labs: Laboratory Results - last 24 hr 04/14/25 04/15/25 04/15/25 12:00 04:55 08:15 WBC 4.9 RBC 2.47 L Hgb 8.0 L Hct 24.1 L MCV 98 MCH 32.4 MCHC 33.2 RDW Std Deviation 47.1 H Plt Count 138 L Neut % (Auto) 63 Lymph % (Auto) 24 [place] % (Auto) 9 Eos % (Auto) 2 Baso % (Auto) 0 Neut # (Auto) 3.1 Lymph # (Auto) 1.2 [place] # (Auto) 0.5 Eos # (Auto) 0.1 Baso # (Auto) 0.0 Immature Gran # (Auto) 0.09 H Absolute Nucleated RBC 0.00 Immature Gran % 2 H Nucleated RBC % 0 Sodium 140 Potassium 4.6 Chloride 107 Carbon Dioxide 21.5 Anion Gap 12 BUN 34 H Creatinine 3.5 H Estim Creat Clear Calc 16.0 L eGFR 17 L BUN/Creatinine Ratio 10 L Glucose 90 Calculated Osmolality 287 Calcium 10.0 Corrected Calcium 10.3 H Phosphorus 5.4 H Magnesium 1.8 Total Bilirubin 0.2 L AST 24 ALT 18 Alkaline Phosphatase 88 D Total Creatine Kinase 21 L Total Protein 7.8 Albumin 3.6 Globulin 4.2 H Albumin/Globulin Ratio 0.9 L Tumor Marker AFP 1.90 Carcinoembryonic Ag < 0.5 Ur Collection Type Clean Catch Urine Color Lt-Yellow Urine Clarity Clear Urine pH 6.5 Ur Specific [place] 1.009 Urine Protein Trace Urine Glucose (UA) Negative Urine Ketones Negative Urine Blood Negative Urine Nitrite Negative Urine Bilirubin Negative Urine Urobilinogen (Auto) Negative Ur Leukocyte Esterase Negative Urine RBC < 1 Urine WBC 1 Ur Squamous Epith Cells < 1 Urine Bacteria None Ur Random Creatinine 44 U Random Total Protein 118 H Ur Random Sodium 83.4 Ur Random Potassium 31 Ur Random Chloride 83.3 Ur Random Urea Nitrogn 220.0 L Urine Opiates Screen Positive A Urine Fentanyl Screen Negative Ur Barbiturates Screen Negative U Amphetamin/Meth Scrn Negative U Benzodiazepines Scrn Negative U Cocaine Metab Screen Negative U Marijuana (THC) Screen Negative Quality Measures Quality Measures none Advance care planning discussed with:: patient Assessment & Plan Assessment Current Active Medications: Generic Name Dose Route Start Last Admin Trade Name Freq PRN Reason Stop Dose Admin Acetaminophen 650 mg 04/14/25 15:00 Acetaminophen 325 Mg Tablet PO 05/14/25 14:59 Q6H PRN Fever >101.5 Acetaminophen 650 mg 04/14/25 15:00 Acetaminophen 325 Mg Tablet PO 05/14/25 14:59 Q6H PRN PAIN SCALE 1-3 (mild Dronabinol 2.5 mg 04/14/25 17:00 04/15/25 07:59 Dronabinol 2.5 Mg Capsule PO 05/14/25 16:59 2.5 mg BIDAC OMAR Administration Heparin Sodium (Porcine) 5,000 unit 04/14/25 22:00 04/15/25 13:24 Heparin Sod Inj 5000 Unit/Ml Vial SC 04/28/25 21:59 Not Given Q8HR OMAR Sodium Chloride 1,000 mls @ 85 mls/hr 04/15/25 08:54 04/15/25 10:09 Ns IV 04/16/25 08:25 85 mls/hr .[id number] OMAR Administration Ondansetron HCl 4 mg 04/14/25 15:00 Ondansetron Inj 2 Mg/Ml Inj 2 Ml IVP 05/14/25 14:59 Q6H PRN NAUSEA OR VOMITING Protocol Oxycodone/Acetaminophen 1 tab 04/14/25 15:00 04/14/25 16:03 Oxycodone/Apap 5/325 Tablet PO 04/19/25 14:59 1 tab Q6H PRN Administration PAIN SCALE 4-6 (Moderate Pantoprazole Sodium 40 mg 04/15/25 09:00 04/15/25 08:04 Pantoprazole 40 Mg Tablet PO 05/15/25 08:59 40 mg QDAY OMAR Administration Pharmacy Consult 1 each 04/14/25 16:36 Pharmacy Renal Dose Adjustment 1 Ea XX 05/14/25 16:35 PRN PRN CONSULT Sennosides 1 tab 04/14/25 15:15 04/15/25 08:04 Senna Tablet PO 05/14/25 15:14 1 tab QDAY OMAR Administration Protocol Sertraline HCl 50 mg 04/14/25 21:00 04/14/25 21:49 Sertraline Hcl 25 Mg Tablet PO 05/14/25 20:59 50 mg HS OMAR Administration Plan A 79-year-old male patient with past medical history of coronary artery disease status post 1 stent placement in 2024, hypertension, ulcerative colitis, hyperlipidemia, osteoporosis, came to the ED after he was referred from his PCP due to chest pain. Patient reported that he has been having chest pain for the past week. Patient was found to have ribs osteolytic lesions and compression fraction of multiple thoracic and lumbar vertebrae. Patient was admitted for management of SAGRARIO, hypercalcemia. #Chest pain most likely secondary to bone destruction #Osteolytic lesion, multiple, most likely secondary to multiple myeloma versus less likely other malignancy #Thoracic vertebrae fracture #Hypercalcemia (improving) #History of osteoporosis Patient presented to the ED with chest pain, questioning reported that the pain has been going on for days to weeks. EKG and troponin were negative CT abdomen and pelvis and chest showed large mass lesion measuring 7 x 3.5 cm in diameter in the right midlung, also extrapleural mass destroying the rib in the same side. There is also extrapleural mass destroying the rib over the posterior base of the left lower lobe that measures 4.5 cm. There was also small definite areas of biapical pleural calcifications, also multiple osteolytic lesions and multiple vertebral compression fractures. Patient was found to have low protein/albumin ratio, SAGRARIO, anoxia, weight loss, hypercalcemia which indicate high possibility of multiple myeloma Patient was found to have calcium level of 11.1. Plan ? Pain management per protocol - Consult oncologist Dr. Rothman- recommendation appreciated ? Will reach out to the oncologist Dr. Cheatham for further follow-up and recommendations ? NS 80 mL/h ? Ordered bone marrow aspiration and biopsy,pending #SAGRARIO most likely prerenal and renal secondary to potential multiple myeloma Patient was found to have calcium level of 11.1 which may cause tubular diabetes insipidus. Patient was found to be dehydrated, serum creatinine at baseline was 1.5 however on presentation serum creatinine is 3.2 Patient does not seem to be take any nephrotoxic medications. Given the patient osteolytic lesions, hypercalcemia, SAGRARIO we believe most likely his SAGRARIO secondary to multiple myeloma Plan ? Nephrology consultation to Dr. Arthur was sent, recommendations appreciated ? Denosumab recommended by nephrology as above-> pt resume stating it affects its kidney ? SAGRARIO workup including urine electrolytes, urine proteins, urine urea, urine creatinine, and renal ultrasound was ordered ? Pharmacy to dose medications ? Avoid nephrotoxic medications ? Dialysis if indicated #History of ulcerative colitis Patient reported that he has history of ulcerative colitis and its wall controlled with mesalamine. Last colonoscopy was last year and it was negative for any malignancy Plan ? Continue home medication mesalamine ? Cancer screening with CA 19, CEA, alpha-fetoprotein #History of coronary artery disease s/p 1 stent placement On questioning patient denied any exertional chest pain, symptoms did not indicate that the patient has typical chest pain. Troponin and EKG were negative for any ischemic changes BNP was within normal limits Plan ? Strict in and out ? Will reach out to the flame planer Dr. Guadarrama if needed #History of hyperlipidemia Plan ? Resume the patient on medication Leqvio after med reconciliation. # History obstructive sleep apnea Patient has a history of EVERT for which was diagnosed outpatient. Patient used CPAP at home. - Continue CPAP at night PRN Hospital Maintenance: FEN: Cardiac diet DVT ppx: Heparin subcu GI ppx: Protonix p.o. IV lines: PIV [place]: None Code status: Full code Dispo: Admit to med/tele Patient assessed under supervision of attending physician Dr. Leary and senior resident Dr. Espitia PGY-3 Bella Cadena MD PGY-1, Internal Medicine Please note: this document was transcribed using voice recognition technology; minor inaccuracies may be present. Attending Provider Attestation/Addendum I have seen and examined the patient. I was physically present for the camacho portions of the services provided including history, physical exam, diagnosis, treatment plans and orders. I agree with assessment and plan of care as documented by residents. Even though this this note was carefully revised there may still be minor errors in packing and shipping clerk due to voice recognition software. Alejandra Leary MD
[2025-04-15 19:33] LABS: Hematocrit 25.5 % (41.0-53.0)
[2025-04-15 19:42] LABS: Hemoglobin 8.7 g/dL (13.5-16.0)
[2025-04-15 19:54] LABS: Alanine Aminotransferase 23 U/L (10-49); Albumin, Serum 3.4 gm/dL (3.4-4.8); Albumin/Globulin Ratio 0.7 (1.2-2.2); Alkaline Phosphatase 98 U/L (46-116); Anion Gap 10 (7-16); Aspartate Amino Transferase 21 U/L (0-34); BUN/Creatinine Ratio 10 Ratio (12-20); Bilirubin,Total 0.2 mg/dL (0.3-1.2); Blood Urea Nitrogen 33 mg/dL (9-23); Calcium 10.4 mg/dL (8.3-10.6); Calcium (Corrected) 10.9 mg/dL (8.5-10.1); Carbon Dioxide 22.4 mMol/L (20.0-31.0); Chloride 106 mMol/L (98-107); Creatinine (Component) 3.4 mg/dL (0.6-1.3); Estimated Creatinine Clearance 13.1 mL/min (>60); Globulin 4.7 gm/dL (2.3-3.5); Glucose 110 mg/dL (74-106); Osmolality,Calculated 283 (275-295); Potassium 4.2 mMol/L (3.4-5.1); Sodium 138 mMol/L (136-145); Total Protein 8.1 gm/dL (5.7-8.2); eGFR 18 See Note
--- NOTE | 2025-04-15 20:50 | PC.NURSE ---
MD okayed to give Heparin.
[2025-04-15] MEDS: SERTRALINE HCL 25 MG TABLET 50 MG PO (20:58)
[2025-04-15] MEDS: HEPARIN SOD INJ 5000 UNIT/ML VIAL SC (20:59)
[2025-04-16] VITALS (8 sets, daily range): BP systolic 111–138; BP diastolic 55–79; PULSE 68–86; RESP 15–96; TEMP 36.2–36.9; O2SAT 93–95
--- NOTE | 2025-04-16 00:24 | ESPR_ITS ---
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 Present with metastatic carcinoma. He is still having some pain in the chest, mostly noncardiac costochondral due to malignancy. Cardiac echo showed normal left ventricular wall motion, ejection fraction greater than 60%. LABORATORY DATA: Lab data continues to show anemia, hemoglobin 8.7, and his chemistry panel showed creatinine elevation of 3.4, worsening renal function. PHYSICAL EXAMINATION: VITAL SIGNS: Stable, blood pressure 132/67, pulse rate is 78, respirations 20, temperature normal. NECK: Supple, no JVD. LUNGS: Clear, no rales or rhonchi. HEART: Sounds regular. ABDOMEN: Thin, soft. EXTREMITIES: With mild edema. GENITOURINARY: Not performed. NEUROLOGIC: Normal. IMPRESSION: 1. Chest pain secondary to possible costochondral rib pain due to metastatic osteolytic lesions in the ribs. 2. Coronary artery disease status post stent placement. 3. Chronic kidney disease with acute kidney injury. 4. continue. RECOMMENDATIONS: Workup for the possible primary for malignancy, nephrology consult also appreciated. DT: 23:11:02 TT: 00:23:00 Ref: [id number] - TID: [id number]
[2025-04-16 05:38] LABS: Basophils # (Auto) 0.0 Thou/mm3 (0.0-0.2); Basophils % (Auto) 1 % (0-2.5); Eosinophils # (Auto) 0.1 Thou/mm3 (0.0-0.5); Eosinophils % (Auto) 2 % (0-10); Hematocrit 22.0 % (41.0-53.0); Immature Granulocytes Auto 0.07 Thou/mm3 (0.00-0.00); Lymphocytes # (Auto) 1.0 Thou/mm3 (1.0-4.8); Lymphocytes % (Auto) 24 % (10-50); Mean Corpuscular HGB Conc 33.6 g/dl (31.0-37.0); Mean Corpuscular Hemoglobin 32.2 pg (25.0-35.0); Mean Corpuscular Volume 96 fL (80-100); Monocytes # (Auto) 0.4 Thou/mm3 (0.0-0.8); Monocytes % (Auto) 10 % (0-12); Neutrophils # (Auto) 2.5 Thou/mm3 (1.8-7.7); Neutrophils % (Auto) 61 % (37-80); Nucleated Red Blood Cell # 0.00 Thou/mm3 (0.00-0.00); Nucleated Red Blood Cell % 0 /100 WBC (0); Platelet Count 144 Thou/mm3 (140-440); RDW Standard Deviation 46.0 fL (35.1-43.9); Red Blood Count 2.30 Miln/mm3 (4.50-5.90); White Blood Count 4.2 Thou/mm3 (3.8-10.6)
[2025-04-16 05:42] LABS: Hemoglobin 7.4 g/dL (13.5-16.0)
[2025-04-16 06:24] LABS: Alanine Aminotransferase 12 U/L (10-49); Albumin, Serum 3.3 gm/dL (3.4-4.8); Albumin/Globulin Ratio 0.8 (1.2-2.2); Alkaline Phosphatase 82 U/L (46-116); Anion Gap 12 (7-16); Aspartate Amino Transferase 20 U/L (0-34); BUN/Creatinine Ratio 9 Ratio (12-20); Bilirubin,Total 0.2 mg/dL (0.3-1.2); Blood Urea Nitrogen 31 mg/dL (9-23); Calcium 9.9 mg/dL (8.3-10.6); Calcium (Corrected) 10.5 mg/dL (8.5-10.1); Carbon Dioxide 20.4 mMol/L (20.0-31.0); Chloride 109 mMol/L (98-107); Creatinine (Component) 3.4 mg/dL (0.6-1.3); Estimated Creatinine Clearance 13.1 mL/min (>60); Globulin 4.2 gm/dL (2.3-3.5); Glucose 90 mg/dL (74-106); Magnesium 2.2 mg/dL (1.6-2.6); Osmolality,Calculated 287 (275-295); Phosphorous 4.4 mg/dL (2.4-5.1); Potassium 4.2 mMol/L (3.4-5.1); Sodium 141 mMol/L (136-145); Total Protein 7.5 gm/dL (5.7-8.2); eGFR 18 See Note
--- NOTE | 2025-04-16 08:00 | PD.RESPRO ---
Documentation for date of: 04/16/25 Exam Vital Signs Temp Pulse Resp BP Pulse Ox O2 Del Method 97.2 F 70 16 137/79 H 95 Room Air 04/16/25 08:00 04/16/25 08:00 04/16/25 08:00 04/16/25 08:00 04/16/25 08:00 04/16/25 08:00 Objective Labs 04/16/25 04:50 04/16/25 04:50 Labs: Laboratory Results - last 24 hr 04/15/25 04/16/25 18:47 04:50 WBC 4.2 RBC 2.30 L Hgb 8.7 L 7.4 L Hct 25.5 L 22.0 L MCV 96 MCH 32.2 MCHC 33.6 RDW Std Deviation 46.0 H Plt Count 144 Neut % (Auto) 61 Lymph % (Auto) 24 [place] % (Auto) 10 Eos % (Auto) 2 Baso % (Auto) 1 Neut # (Auto) 2.5 Lymph # (Auto) 1.0 [place] # (Auto) 0.4 Eos # (Auto) 0.1 Baso # (Auto) 0.0 Immature Gran # (Auto) 0.07 H Absolute Nucleated RBC 0.00 Immature Gran % 2 H Nucleated RBC % 0 Sodium 138 141 Potassium 4.2 4.2 Chloride 106 109 H Carbon Dioxide 22.4 20.4 Anion Gap 10 12 BUN 33 H 31 H Creatinine 3.4 H 3.4 H Estim Creat Clear Calc 13.1 L 13.1 L eGFR 18 L 18 L BUN/Creatinine Ratio 10 L 9 L Glucose 110 H 90 Calculated Osmolality 283 287 Calcium 10.4 9.9 Corrected Calcium 10.9 H 10.5 H Phosphorus 4.4 Magnesium 2.2 Total Bilirubin 0.2 L 0.2 L AST 21 20 ALT 23 12 Alkaline Phosphatase 98 82 Total Protein 8.1 7.5 Albumin 3.4 3.3 L Globulin 4.7 H 4.2 H Albumin/Globulin Ratio 0.7 L 0.8 L Blood Type A Negative Antibody Screen NEGATIVE Blood Bank Wristband ID Yes Quality Measures Quality Measures none Assessment & Plan Assessment Current Active Medications: Generic Name Dose Route Start Last Admin Trade Name Freq PRN Reason Stop Dose Admin Acetaminophen 650 mg 04/14/25 15:00 Acetaminophen 325 Mg Tablet PO 05/14/25 14:59 Q6H PRN Fever >101.5 Acetaminophen 650 mg 12/23/25 15:00 Acetaminophen 325 Mg Tablet PO 05/14/25 14:59 Q6H PRN PAIN SCALE 1-3 (mild Dronabinol 2.5 mg 04/14/25 17:00 04/16/25 08:26 Dronabinol 2.5 Mg Capsule PO 05/14/25 16:59 2.5 mg BIDAC OMAR Administration Heparin Sodium (Porcine) 5,000 unit 04/14/25 22:00 04/16/25 08:22 Heparin Sod Inj 5000 Unit/Ml Vial SC 04/28/25 21:59 Not Given Q8HR OMAR Sodium Chloride 1,000 mls @ 150 mls/hr 04/16/25 07:03 04/16/25 08:26 Ns IV 05/16/25 07:02 150 mls/hr .[id number] OMAR Administration Ondansetron HCl 4 mg 04/14/25 15:00 Ondansetron Inj 2 Mg/Ml Inj 2 Ml IVP 05/14/25 14:59 Q6H PRN NAUSEA OR VOMITING Protocol Oxycodone/Acetaminophen 1 tab 04/14/25 15:00 04/14/25 16:03 Oxycodone/Apap 5/325 Tablet PO 04/19/25 14:59 1 tab Q6H PRN Administration PAIN SCALE 4-6 (Moderate Pantoprazole Sodium 40 mg 04/15/25 09:00 04/16/25 08:26 Pantoprazole 40 Mg Tablet PO 05/15/25 08:59 40 mg QDAY OMAR Administration Pharmacy Consult 1 each 04/14/25 16:36 Pharmacy Renal Dose Adjustment 1 Ea XX 05/14/25 16:35 PRN PRN CONSULT Sennosides 1 tab 04/14/25 15:15 04/16/25 08:26 Senna Tablet PO 05/14/25 15:14 1 tab QDAY OMAR Administration Protocol Sertraline HCl 50 mg 04/14/25 21:00 04/15/25 20:58 Sertraline Hcl 25 Mg Tablet PO 05/14/25 20:59 50 mg HS OMAR Administration
--- NOTE | 2025-04-16 08:00 | PD.RESPRO ---
Documentation for date of: 04/16/25 Subjective Subjective Interval history: Patient denies any chest pain, SOB, or palpitations. 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 Continue the workup for malignancy and follow up with oncology and nephrology. Exam Vital Signs Temp Pulse Resp BP Pulse Ox O2 Del Method 97.1 F 68 15 138/71 H 95 Room Air 04/16/25 12:00 04/16/25 12:00 04/16/25 12:00 04/16/25 12:00 04/16/25 12:04/16/25 12:00 Narrative Exam General: No acute distress, well nourished, AAO x3 Eye:normal conjunctiva, no scleral icterus HENT: Normocephalic, atraumatic, hearing intact to conversation at normal volume, moist oral mucosa Neck: Supple, non-tender, no JVD, no lymphadenopathy Lungs: Non-labored respirations, symmetric chest rise, Clear to auscultate bilaterally, No wheezing, rhonchi, crackles Heart: Peripheral pulses intact bilaterally, Regular Rate and Rhythm. Abdomen: Soft, non-tender, non-distended, no palpable masses Musculoskeletal: Normal range of motion and strength, No cyanosis or edema, No visible joint swelling Skin: Skin is warm, dry, no rashes or lesions. Psychiatric: Cooperative, appropriate mood and affect, Awake and alert, not agitated Neuro: Cranial nerves II-XII grossly intact. Strength 5/5 throughout. Sensations intact to light touch. Objective Labs 04/16/25 04:50 04/16/25 04:50 Labs: Laboratory Results - last 24 hr 04/15/25 04/16/25 18:47 04:50 WBC 4.2 RBC 2.30 L Hgb 8.7 L 7.4 L Hct 25.5 L 22.0 L MCV 96 MCH 32.2 MCHC 33.6 RDW Std Deviation 46.0 H Plt Count 144 Neut % (Auto) 61 Lymph % (Auto) 24 [place] % (Auto) 10 Eos % (Auto) 2 Baso % (Auto) 1 Neut # (Auto) 2.5 Lymph # (Auto) 1.0 [place] # (Auto) 0.4 Eos # (Auto) 0.1 Baso # (Auto) 0.0 Immature Gran # (Auto) 0.07 H Absolute Nucleated RBC 0.00 Immature Gran % 2 H Nucleated RBC % 0 Sodium 138 141 Potassium 4.2 4.2 Chloride 106 109 H Carbon Dioxide 22.4 20.4 Anion Gap 10 12 BUN 33 H 31 H Creatinine 3.4 H 3.4 H Estim Creat Clear Calc 13.1 L 13.1 L eGFR 18 L 18 L BUN/Creatinine Ratio 10 L 9 L Glucose 110 H 90 Calculated Osmolality 283 287 Calcium 10.4 9.9 Corrected Calcium 10.9 H 10.5 H Phosphorus 4.4 Magnesium 2.2 Total Bilirubin 0.2 L 0.2 L AST 21 20 ALT 23 12 Alkaline Phosphatase 98 82 Total Protein 8.1 7.5 Albumin 3.4 3.3 L Globulin 4.7 H 4.2 H Albumin/Globulin Ratio 0.7 L 0.8 L Blood Type A Negative Antibody Screen NEGATIVE Blood Bank Wristband ID Yes Quality Measures Quality Measures none Advance care planning discussed with:: patient and other Assessment & Plan Assessment Current Active Medications: Generic Name Dose Route Start Last Admin Trade Name Freq PRN Reason Stop Dose Admin Acetaminophen 650 mg 04/14/25 15:00 Acetaminophen 325 Mg Tablet PO 05/14/25 14:59 Q6H PRN Fever >101.5 Acetaminophen 650 mg 04/14/25 15:00 Acetaminophen 325 Mg Tablet PO 05/14/25 14:59 Q6H PRN PAIN SCALE 1-3 (mild Dronabinol 2.5 mg 04/14/25 17:00 04/16/25 08:26 Dronabinol 2.5 Mg Capsule PO 05/14/25 16:59 2.5 mg BIDAC OMAR Administration Heparin Sodium (Porcine) 5,000 unit 04/14/25 22:00 04/16/25 13:59 Heparin Sod Inj 5000 Unit/Ml Vial SC 04/28/25 21:59 Not Given Q8HR OMAR Sodium Chloride 1,000 mls @ 150 mls/hr 04/16/25 07:03 04/16/25 08:26 Ns IV 04/16/25 20:22 150 mls/hr .Q6H40M OMAR Administration Ondansetron HCl 4 mg 04/14/25 15:00 Ondansetron Inj 2 Mg/Ml Inj 2 Ml IVP 05/14/25 14:59 Q6H PRN NAUSEA OR VOMITING Protocol Oxycodone/Acetaminophen 1 tab 04/14/25 15:00 04/16/25 12:29 Oxycodone/Apap 5/325 Tablet PO 04/19/25 14:59 1 tab Q6H PRN Administration PAIN SCALE 4-6 (Moderate Pantoprazole Sodium 40 mg 04/15/25 09:00 04/16/25 08:26 Pantoprazole 40 Mg Tablet PO 05/15/25 08:59 40 mg QDAY OMAR Administration Pharmacy Consult 1 each 04/14/25 16:36 Pharmacy Renal Dose Adjustment 1 Ea XX 05/14/25 16:35 PRN PRN CONSULT Sennosides 1 tab 04/14/25 15:15 04/16/25 08:26 Senna Tablet PO 05/14/25 15:14 1 tab QDAY OMAR Administration Protocol Sertraline HCl 50 mg 04/14/25 21:00 04/15/25 20:58 Sertraline Hcl 25 Mg Tablet PO 05/14/25 20:59 50 mg HS OMAR Administration Plan A 79-year-old male patient with past medical history of coronary artery disease status post 1 stent placement in 2017, hypertension, ulcerative colitis, hyperlipidemia, osteoporosis, came to the ED after he was referred from his PCP due to chest pain. Patient was found to have ribs osteolytic lesions and compression fraction of multiple thoracic and lumbar vertebrae. Patient was admitted for management of SAGRARIO, hypercalcemia. Cardiology consulted for Evaluation of patient with chest pain and known history of CAD stent placement. 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 #Coronary artery disease s/p stent placement. -Weeks of chest pain that has been going on for days -EKG and troponin (<0.020) was unremarkable -CT chest/abd/pelvis showed: Widespread and most extensive malignant diseasewith virtually every the bone throughout the thorax, abdomen and pelvis, heavily involved. Numerous moderate compression fractures throughout the spine. Numerous extrapleural mass lesions noted surrounding the lungs, destroying the adjacent ribs. There is a prominent gastric hiatal hernia, Heavy coronary artery calcification at the origin of the left main coronary. -Patient's chest pain likely related to the rib destruction fro metastatic cancer -ECHO (04/14/2025) showed: 1. Left ventricle size is normal and systolic function is normal. Estimated ejection fraction is 60-65%. There is grade I diastolic dysfunction. There is concentric remodeling noted. 2. Right ventricle chamber size is normal and systolic function is normal. 3. There is trace mitral valve regurgitation. 4. The left atrium is mildly enlarged. The right atrium is normal. 5. Not well visualized IVC with estimated RA pressure 8 mmHg. Plan: -Continue the pain treatment -Follow up with oncology and treat accordining -Cardiac cortez stable. #Hyperlipidemia -Patient on home med Leqvio subcut every 6 months #SAGRARIO most likely prerenal and renal secondary to potential multiple myeloma #History of ulcerative colitis # History obstructive sleep apnea -Management per Primary Hospitalist team Thank you for allowing us to participate in the care of Mr. Jeremy Coronel Assessment and plan discussed with my attending physician Dr. Kike Heath (PGY-1) - Internal medicine resident Attending Provider Attestation/Addendum I reviewed the resident Dr. Ellen Heath consultation progress note and agree with the resident findings and plan in the note above and have also edited the documentation to reflect my findings and plan. Tejas Stokes M.D. Interventional Cardiology
[2025-04-16] MEDS: SODIUM CHLORIDE 0.9% 1000 ML 1,000 ML 150 ML IV ×2 (08:26→16:22)
[2025-04-16] MEDS: PANTOPRAZOLE 40 MG TABLET PO (08:26)
--- NOTE | 2025-04-16 09:46 | ESPR_ITS ---
Documentation for date of: 04/16/25 Subjective Subjective Interval history: Informant at bedside Mr. Coronel is 79-year-old male with history of CAD s/p stent (2004), hypertension, ulcerative colitis (follows Dr. Anderson), severe osteoporosis, and chronic back pain admitted for evaluation of acute kidney injury. Patient was admitted in January 2025 with a similar episode and noted to be in acute renal failure. At that time his symptoms were related to hypercalcemia, weight loss and Forteo. Workup at that time showed a lumbar compression fracture. Apparently patient had an MRI of the right shoulder at [facility] and noted to have significant osteolytic lesions. That prompted for cancer center evaluation. Dr. Camara recommended bone marrow aspiration and biopsy along with FISH analysis. High on the differential was multiple myeloma. His home medications included amlodipine, cetirizine, Braman, Plaquenil, mesalamine, prednisone, sertraline 04/14/2025 ER labs showed WBC 5.5, hemoglobin 9.3, platelets 160. INR 1. Sodium 136, potassium 4.4,Creatinine 3.7, GFR 16, calcium 11, magnesium 2, LFTs normal, total protein 9.4 g, albumin 4, globulin 5.4, AFP normal, CEA normal, CA 19-9 normal, urine tox screen pending. Patient had a chest x-ray which showed a mass in the right lung, pathologic fracture in the right eighth rib. CT chest abdomen and pelvis showed extrapleural 7 cm mass in the right lung. Multiple small extrapleural masses destroying the ribs, malignant lesions in the thoracic/lumbar/sacral vertebral bodies-findings consistent with myeloma Patient was started on normal saline. Renal consultation requested for hypercalcemia, SAGRARIO. 04/15/2025 patient currently seen in medical floor. Resting comfortably. Denies any chest pain, shortness of breath. Denies any nausea, vomiting. Labs and medications reviewed. Hemoglobin 7.4, Cr 3.4. Continue with IV fluids. Calcium seems to be better. Pending bone marrow biopsy and aspiration 04/16/2025 Patient currently still on medical floor. Denies any chest pain, shortness of breath, nausea, vomiting. No urinary symptoms of burning or frequency. labs and medications have been reviewed. Hemoglobin 7.4, calcium 10.5, creatinine 3.4, GFR 18. No need for dialysis. Review of Systems Review of Systems Narrative Review of Systems: CONSTITUTIONAL: Patient denies any fever, chills. Complaining of fatigue HEENT: Denies any visual disturbances or hearing problems. CARDIOVASCULAR: Patient denies any chest pain, shortness of breath, swelling in the lower extremities. PULMONARY: Patient denies any shortness of breath, cough. GASTROINTESTINAL: Patient denies any abdominal pain, constipation, nausea, vomiting, diarrhea. GENITOURINARY: Patient denies any urinary symptoms of burning or frequency or hematuria, denies any form in the urine. SKIN: Denies any rash. MUSCULOSKELETAL: Complaining of joint pains and back pain NEUROLOGICAL: Denies any neurological problems of strokes, seizures or confusion. Denies any memory problems. PSYCHIATRIC: Denies any depression or anxiety. LYMPHATICS : No lymphadenopathy Exam Vital Signs Temp Pulse Resp BP Pulse Ox O2 Del Method 36.3 C 72 16 114/55 L 95 Room Air 04/16/25 16:00 04/16/25 20:19 04/16/25 20:19 04/16/25 16:00 04/16/25 16:00 04/16/25 16:00 Narrative Exam GENERAL APPEARANCE: Patient seems to be comfortable, adequately hydrated and nourished. HEENT: EOMI, PERRLA NECK: Neck supple, no JVD or bruit CARDIOVASCULAR: Heart regular, no murmurs LUNGS/CHEST: Chest clear to auscultation. No rales, rhonchi, wheezing ABDOMEN: Soft, nontender, nondistended. No masses. Normal bowel sounds. EXTREMITIES: No edema, clubbing or cyanosis. SKIN: Skin exam normal without any rashes MUSCULOSKELETAL: Musculoskeletal exam normal PSYCHIATRIC: Normal mood, affect LYMPHATICS: No lymphadenopathy noted NEUROLOGICAL : No neurological deficits Objective Labs 04/16/25 04:50 04/16/25 04:50 Labs: Laboratory Results - last 24 hr 04/16/25 04:50 WBC 4.2 RBC 2.30 L Hgb 7.4 L Hct 22.0 L MCV 96 MCH 32.2 MCHC 33.6 RDW Std Deviation 46.0 H Plt Count 144 Neut % (Auto) 61 Lymph % (Auto) 24 [place] % (Auto) 10 Eos % (Auto) 2 Baso % (Auto) 1 Neut # (Auto) 2.5 Lymph # (Auto) 1.0 [place] # (Auto) 0.4 Eos # (Auto) 0.1 Baso # (Auto) 0.0 Immature Gran # (Auto) 0.07 H Absolute Nucleated RBC 0.00 Immature Gran % 2 H Nucleated RBC % 0 Sodium 141 Potassium 4.2 Chloride 109 H Carbon Dioxide 20.4 Anion Gap 12 BUN 31 H Creatinine 3.4 H Estim Creat Clear Calc 13.1 L eGFR 18 L BUN/Creatinine Ratio 9 L Glucose 90 Calculated Osmolality 287 Calcium 9.9 Corrected Calcium 10.5 H Phosphorus 4.4 Magnesium 2.2 Total Bilirubin 0.2 L AST 20 ALT 12 Alkaline Phosphatase 82 Total Protein 7.5 Albumin 3.3 L Globulin 4.2 H Albumin/Globulin Ratio 0.8 L Assessment & Plan Additional Assessment & Plan Additional Plan: 79-year-old male with age-related CKD and SAGRARIO likely prerenal secondary to volume depletion and humoral hypercalcemia of malignancy. # SAGRARIO Likely prerenal etiology due to dehydration and humoral hypercalcemia; agree with aggressive fluid resuscitation Plan: * Trend BMP daily * Strict I&O and daily weights. * Continue with IV fluids * Cr 3.4 * # Hypercalcemia patient asymptomatic. Probably related to underlying malignancy-myeloma Plan: * continue with IV fluids # CKD III Imaging and prior data show bilateral cortical thinning and renal scarring, consistent with chronic kidney disease likely secondary to longstanding hypertension and vascular disease. Plan: * Educate patient regarding CKD precautions (avoid NSAIDs, contrast, dehydration). * Maintain renal-friendly diet and follow up with outpatient nephrology for CKD management. * BP and glycemic control technician terminal and repeater. # Multiple lytic lesions Workup for myeloma pending Plan: * Continue with IV fluids, pain management * Will order bone marrow biopsy and aspiration # Hypertension Currently normotensive Plan: * Per primary team # Osteoporosis History of Forteo use with adverse effects. Plan: * Avoid bisphosphonates during SAGRARIO. Care discussed with primary team. Thank you Alejandra for allowing me to participate in the care of Mr. Luna
--- NOTE | 2025-04-16 10:48 | PC.SS ---
Addendum entered by Franci Cha 04/16/25 15:31: Rounding note: Nephrology & Oncology reccs. pending. Possible discharge 04/17/25. Discharging home when medically clear. Original Note: 79YO White Male, Reason for visit: CHEST PAIN SS met with patient at bedside to complete initial assessment. Role and purpose of today?s contact explained. Patient confirmed his demographic information.?Patient reported he lives with his spouse. Patient stated his primary medical surrogate decisionmaker is his Spouse Estee Berna [phone]. Patient reported he is independent with ADL completion and utilizes a FWW for ambulation. PCP: Dr. Yoly Polo, last appt. was 04/14/25. BARROW WORKER: Dr. Hoang. PLODDING MACHINE OPERATOR: Dr. Arthur. PHARMACY: [facility]. ?Discharge plan discussed with patient and he is requesting to return home at the time of discharge. Patient?s spouse Estee Berna to provide transportation. DISCHARGE PLAN: HOME NEXT OF KIN: Spouse Estee Berna [phone].
[2025-04-16] MEDS: ferumoxytoL (NON-ESRD) 510 MG in SODIUM CHLORIDE 0.9% 100 ML 234 MG IV (14:04)
--- NOTE | 2025-04-16 15:29 | ESPR_ITS ---
<Statement entered by Aminata Espitia MD - 04/16/25 18:50> Patient was seen and examined at bedside. Agree with assessment and plan in this note. - Patient's plan and care discussed with my attending, Dr. Sapphire Espitia MD Internal Medicine PGY-3 Documentation for date of: 04/16/25 Subjective Subjective Interval history: Acute event overnight. Patient seen and examined at bedside saturating well on room air with no acute complains. Labs were reviewed and noted a downtrending hemoglobin of 7.4 likely dilutional. CHEM panel BUN 31, Cr 3.4, eGFR 18. Calcium 10.5. Tumor marker CEA <0.5 and alpha-fetoprotein 1.90. Still pending CA 19.9 and bone marrow biopsy. Per nephrology recommendation patient received Retacrit 10,000 unit SC and ferumoxytol 510mg IV x1. Will continue with NS at rate 150 cc due to improvement SAGRARIO. Will talk with oncologist tomorrow for possible outpatient biopsy consideration. Exam Vital Signs Temp Pulse Resp BP Pulse Ox O2 Del Method 97.1 F 68 15 138/71 H 95 Room Air 04/16/25 12:00 04/16/25 12:00 04/16/25 12:00 04/16/25 12:00 04/16/25 12:00 04/16/25 12:00 Narrative Exam General: No acute distress, well nourished, AAO x3 Eye:normal conjunctiva, no scleral icterus HENT: Normocephalic, atraumatic, hearing intact to conversation at normal volume, moist oral mucosa Neck: Supple, non-tender, no JVD, no lymphadenopathy Lungs: Non-labored respirations, symmetric chest rise, Clear to auscultate bilaterally, No wheezing, rhonchi, crackles Heart: Peripheral pulses intact bilaterally, Regular Rate and Rhythm. Abdomen: Soft, non-tender, non-distended, no palpable masses Musculoskeletal: Normal range of motion and strength, No cyanosis or edema, No visible joint swelling Skin: Skin is warm, dry, no rashes or lesions. Psychiatric: Cooperative, appropriate mood and affect, Awake and alert, not agitated Neuro: Cranial nerves II-XII grossly intact. Strength 5/5 throughout. Sensations intact to light touch. Objective Labs 04/17/25 05:10 04/17/25 05:10 Labs: Laboratory Results - last 24 hr 04/15/25 04/16/25 18:47 04:50 WBC 4.2 RBC 2.30 L Hgb 8.7 L 7.4 L Hct 25.5 L 22.0 L MCV 96 MCH 32.2 MCHC 33.6 RDW Std Deviation 46.0 H Plt Count 144 Neut % (Auto) 61 Lymph % (Auto) 24 [place] % (Auto) 10 Eos % (Auto) 2 Baso % (Auto) 1 Neut # (Auto) 2.5 Lymph # (Auto) 1.0 [place] # (Auto) 0.4 Eos # (Auto) 0.1 Baso # (Auto) 0.0 Immature Gran # (Auto) 0.07 H Absolute Nucleated RBC 0.00 Immature Gran % 2 H Nucleated RBC % 0 Sodium 138 141 Potassium 4.2 4.2 Chloride 106 109 H Carbon Dioxide 22.4 20.4 Anion Gap 10 12 BUN 33 H 31 H Creatinine 3.4 H 3.4 H Estim Creat Clear Calc 13.1 L 13.1 L eGFR 18 L 18 L BUN/Creatinine Ratio 10 L 9 L Glucose 110 H 90 Calculated Osmolality 283 287 Calcium 10.4 9.9 Corrected Calcium 10.9 H 10.5 H Phosphorus 4.4 Magnesium 2.2 Total Bilirubin 0.2 L 0.2 L AST 21 20 ALT 23 12 Alkaline Phosphatase 98 82 Total Protein 8.1 7.5 Albumin 3.4 3.3 L Globulin 4.7 H 4.2 H Albumin/Globulin Ratio 0.7 L 0.8 L Blood Type A Negative Antibody Screen NEGATIVE Blood Bank Wristband ID Yes Quality Measures Quality Measures none Advance care planning discussed with:: patient Assessment & Plan Assessment Current Active Medications: Generic Name Dose Route Start Last Admin Trade Name Freq PRN Reason Stop Dose Admin Acetaminophen 650 mg 04/14/25 15:00 Acetaminophen 325 Mg Tablet PO 05/14/25 14:59 Q6H PRN Fever >101.5 Acetaminophen 650 mg 04/14/25 15:00 Acetaminophen 325 Mg Tablet PO 05/14/25 14:59 Q6H PRN PAIN SCALE 1-3 (mild Dronabinol 2.5 mg 04/14/25 17:00 04/16/25 08:26 Dronabinol 2.5 Mg Capsule PO 05/14/25 16:59 2.5 mg BIDAC OMAR Administration Heparin Sodium (Porcine) 5,000 unit 04/14/25 22:00 04/16/25 13:59 Heparin Sod Inj 5000 Unit/Ml Vial SC 04/28/25 21:59 Not Given Q8HR OMAR Sodium Chloride 1,000 mls @ 150 mls/hr 04/16/25 07:03 04/16/25 08:26 Ns IV 04/16/25 20:22 150 mls/hr .Q6H40M OMAR Administration Ondansetron HCl 4 mg 04/14/25 15:00 Ondansetron Inj 2 Mg/Ml Inj 2 Ml IVP 05/14/25 14:59 Q6H PRN NAUSEA OR VOMITING Protocol Oxycodone/Acetaminophen 1 tab 04/14/25 15:00 04/16/25 12:29 Oxycodone/Apap 5/325 Tablet PO 04/19/25 14:59 1 tab Q6H PRN Administration PAIN SCALE 4-6 (Moderate Pantoprazole Sodium 40 mg 04/15/25 09:00 04/16/25 08:26 Pantoprazole 40 Mg Tablet PO 05/15/25 08:59 40 mg QDAY OMAR Administration Pharmacy Consult 1 each 04/14/25 16:36 Pharmacy Renal Dose Adjustment 1 Ea XX 05/14/25 16:35 PRN PRN CONSULT Sennosides 1 tab 04/14/25 15:15 04/16/25 08:26 Senna Tablet PO 05/14/25 15:14 1 tab QDAY OMAR Administration Protocol Sertraline HCl 50 mg 04/14/25 21:00 04/15/25 20:58 Sertraline Hcl 25 Mg Tablet PO 05/14/25 20:59 50 mg HS OMAR Administration Plan A 79-year-old male patient with past medical history of coronary artery disease status post 1 stent placement in 2024, hypertension, ulcerative colitis, hyperlipidemia, osteoporosis, came to the ED after he was referred from his PCP due to chest pain. Patient reported that he has been having chest pain for the past week. Patient was found to have ribs osteolytic lesions and compression fraction of multiple thoracic and lumbar vertebrae. Patient was admitted for management of SAGRARIO, hypercalcemia. #Chest pain most likely secondary to bone destruction #Osteolytic lesion, multiple, most likely secondary to multiple myeloma versus less likely other malignancy #Thoracic vertebrae fracture #Hypercalcemia (improving) #History of osteoporosis Patient presented to the ED with chest pain, questioning reported that the pain has been going on for days to weeks. EKG and troponin were negative CT abdomen and pelvis and chest showed large mass lesion measuring 7 x 3.5 cm in diameter in the right midlung, also extrapleural mass destroying the rib in the same side. There is also extrapleural mass destroying the rib over the posterior base of the left lower lobe that measures 4.5 cm. There was also small definite areas of biapical pleural calcifications, also multiple osteolytic lesions and multiple vertebral compression fractures. Patient was found to have low protein/albumin ratio, SAGRARIO, anoxia, weight loss, hypercalcemia which indicate high possibility of multiple myeloma Patient was found to have calcium level of 11.1. Plan ? Pain management per protocol - Consult oncologist Dr. Rothman- recommendation appreciated - Retacrit 10,000 unit SC and ferumoxytol 510mg IV x1. ? Will reach out to the oncologist Dr. Cheatham for further follow-up and recommendations ? NS 80 mL/h-->150ml/h - Dronabinol for appetite stimulation ? Ordered bone marrow aspiration and biopsy, pending #SAGRARIO most likely prerenal and renal secondary to potential multiple myeloma Patient was found to have calcium level of 11.1 which may cause tubular diabetes insipidus. Patient was found to be dehydrated, serum creatinine at baseline was 1.5 however on presentation serum creatinine is 3.2 Patient does not seem to be take any nephrotoxic medications. Given the patient osteolytic lesions, hypercalcemia, SAGRARIO we believe most likely his SAGRARIO secondary to multiple myeloma Plan ? Nephrology consultation to Dr. Arthur recommendations appreciated- ? Denosumab recommended by nephrology as above-> pt resume stating it affects its kidney ? SAGRARIO workup including urine electrolytes, urine proteins, urine urea, urine creatinine, and renal ultrasound was ordered ? Pharmacy to dose medications ? Avoid nephrotoxic medications ? Dialysis if indicated #History of ulcerative colitis Patient reported that he has history of ulcerative colitis and its wall controlled with mesalamine. Last colonoscopy was last year and it was negative for any malignancy CEA <0.5 alpha-fetoprotein 1.90 Plan ? Continue home medication mesalamine ? Cancer screening with CA 19 #History of coronary artery disease s/p 1 stent placement On questioning patient denied any exertional chest pain, symptoms did not indicate that the patient has typical chest pain. Troponin and EKG were negative for any ischemic changes BNP was within normal limits Plan ? Strict in and out ? Will reach out to the saw straightener Dr. Guadarrama if needed #History of hyperlipidemia Leqvio a1stoguc outpatient # History obstructive sleep apnea Patient has a history of EVERT for which was diagnosed outpatient. Patient used CPAP at home. - Continue CPAP at night PRN Hospital Maintenance: FEN: Cardiac diet DVT ppx: Heparin subcu GI ppx: Protonix p.o. IV lines: PIV [place]: None Code status: Full code Dispo: Admit to med/tele Patient assessed under supervision of attending physician Dr. Laery and resident Dr. Espitia PGY-3 Bella Cadena MD PGY-1, Internal Medicine Please note: this document was transcribed using voice recognition technology; minor inaccuracies may be present. Attending Provider Attestation/Addendum I have seen and examined the patient. I was physically present for the camacho portions of the services provided including history, physical exam, diagnosis, treatment plans and orders. I agree with assessment and plan of care as documented by residents. Even though this this note was carefully revised there may still be minor errors in outside upholsterer due to voice recognition software. Alejandra Leary MD
[2025-04-16] MEDS: EPOETIN ALFA-EPBX INJ 10,000 UNIT/ML VIAL (ESRD) 10000 UNIT SC (15:44)
--- NOTE | 2025-04-16 15:52 | PC.PT ---
Patient is refusing PT at this time 2/2 pain even post pain medications and because is not feeling well. Patient requested to have PT eval performed tomorrow. Will re-attempt PT eval at another time. RN made aware.
[2025-04-16] MEDS: SERTRALINE HCL 25 MG TABLET 50 MG PO (20:15)
[2025-04-17] VITALS (7 sets, daily range): BP systolic 122–147; BP diastolic 61–70; PULSE 60–72; RESP 16–95; TEMP 36.1–36.6; O2SAT 90–96
[2025-04-17 05:41] LABS: Basophils # (Auto) 0.0 Thou/mm3 (0.0-0.2); Basophils % (Auto) 0 % (0-2.5); Eosinophils # (Auto) 0.1 Thou/mm3 (0.0-0.5); Eosinophils % (Auto) 2 % (0-10); Hematocrit 21.0 % (41.0-53.0); Immature Granulocytes Auto 0.06 Thou/mm3 (0.00-0.00); Lymphocytes # (Auto) 1.2 Thou/mm3 (1.0-4.8); Lymphocytes % (Auto) 27 % (10-50); Mean Corpuscular HGB Conc 33.3 g/dl (31.0-37.0); Mean Corpuscular Hemoglobin 32.7 pg (25.0-35.0); Mean Corpuscular Volume 98 fL (80-100); Monocytes # (Auto) 0.5 Thou/mm3 (0.0-0.8); Monocytes % (Auto) 10 % (0-12); Neutrophils # (Auto) 2.6 Thou/mm3 (1.8-7.7); Neutrophils % (Auto) 60 % (37-80); Nucleated Red Blood Cell # 0.00 Thou/mm3 (0.00-0.00); Nucleated Red Blood Cell % 0 /100 WBC (0); Platelet Count 122 Thou/mm3 (140-440); RDW Standard Deviation 47.0 fL (35.1-43.9); Red Blood Count 2.14 Miln/mm3 (4.50-5.90); White Blood Count 4.4 Thou/mm3 (3.8-10.6)
[2025-04-17 05:59] LABS: Hemoglobin 6.9 g/dL (13.5-16.0)
[2025-04-17 06:00] LABS: Path Review Blood Smear Sent to Pathologist
[2025-04-17 06:08] LABS: Alanine Aminotransferase 11 U/L (10-49); Albumin, Serum 3.2 gm/dL (3.4-4.8); Albumin/Globulin Ratio 0.8 (1.2-2.2); Alkaline Phosphatase 74 U/L (46-116); Anion Gap 10 (7-16); Aspartate Amino Transferase 17 U/L (0-34); BUN/Creatinine Ratio 8 Ratio (12-20); Bilirubin,Total 0.2 mg/dL (0.3-1.2); Blood Urea Nitrogen 27 mg/dL (9-23); Calcium 9.9 mg/dL (8.3-10.6); Calcium (Corrected) 10.5 mg/dL (8.5-10.1); Carbon Dioxide 21.6 mMol/L (20.0-31.0); Chloride 111 mMol/L (98-107); Creatinine (Component) 3.2 mg/dL (0.6-1.3); Estimated Creatinine Clearance 13.9 mL/min (>60); Globulin 3.9 gm/dL (2.3-3.5); Glucose 100 mg/dL (74-106); Magnesium 1.9 mg/dL (1.6-2.6); Osmolality,Calculated 290 (275-295); Phosphorous 4.2 mg/dL (2.4-5.1); Potassium 4.4 mMol/L (3.4-5.1); Sodium 143 mMol/L (136-145); Total Protein 7.1 gm/dL (5.7-8.2); eGFR 19 See Note
--- NOTE | 2025-04-17 08:00 | PD.RESPRO ---
Documentation for date of: 04/17/25 Subjective Subjective Interval history: Patient denies any chest pain, SOB, or palpitations. 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 Continue the workup for malignancy and follow up with oncology and nephrology. Exam Vital Signs Temp Pulse Resp BP Pulse Ox O2 Del Method 97.9 F 71 19 147/70 H 90 L Room Air 04/17/25 16:00 04/17/25 16:00 04/17/25 16:00 04/17/25 16:00 04/17/25 16:00 04/17/25 12:00 Narrative Exam General: No acute distress, well nourished, AAO x3 Eye:normal conjunctiva, no scleral icterus HENT: Normocephalic, atraumatic, hearing intact to conversation at normal volume, moist oral mucosa Neck: Supple, non-tender, no JVD, no lymphadenopathy Lungs: Non-labored respirations, symmetric chest rise, Clear to auscultate bilaterally, No wheezing, rhonchi, crackles Heart: Peripheral pulses intact bilaterally, Regular Rate and Rhythm. Abdomen: Soft, non-tender, non-distended, no palpable masses Musculoskeletal: Normal range of motion and strength, No cyanosis or edema, No visible joint swelling Skin: Skin is warm, dry, no rashes or lesions. Psychiatric: Cooperative, appropriate mood and affect, Awake and alert, not agitated Neuro: Cranial nerves II-XII grossly intact. Sensations intact to light touch. Objective Labs 04/17/25 05:10 04/17/25 05:10 Labs: Laboratory Results - last 24 hr 04/15/25 04/17/25 18:47 05:10 WBC 4.4 RBC 2.14 L Hgb 6.9 L* Hct 21.0 L* MCV 98 MCH 32.7 MCHC 33.3 RDW Std Deviation 47.0 H Plt Count 122 L Neut % (Auto) 60 Lymph % (Auto) 27 [place] % (Auto) 10 Eos % (Auto) 2 Baso % (Auto) 0 Neut # (Auto) 2.6 Lymph # (Auto) 1.2 [place] # (Auto) 0.5 Eos # (Auto) 0.1 Baso # (Auto) 0.0 Immature Gran # (Auto) 0.06 H Absolute Nucleated RBC 0.00 Immature Gran % 1 H Nucleated RBC % 0 Smear Path Review Sent to Pathologist Sodium 143 Potassium 4.4 Chloride 111 H Carbon Dioxide 21.6 Anion Gap 10 BUN 27 H Creatinine 3.2 H Estim Creat Clear Calc 13.9 L eGFR 19 L BUN/Creatinine Ratio 8 L Glucose 100 Calculated Osmolality 290 Calcium 9.9 Corrected Calcium 10.5 H Phosphorus 4.2 Magnesium 1.9 Iron 753 H* TIBC 227 L Iron Saturation 100 H Unsat Iron Binding 0 L Total Bilirubin 0.2 L AST 17 ALT 11 Alkaline Phosphatase 74 Total Protein 7.1 Albumin 3.2 L Globulin 3.9 H Albumin/Globulin Ratio 0.8 L Crossmatch See Detail Quality Measures Quality Measures none Advance care planning discussed with:: patient and other Assessment & Plan Assessment Current Active Medications: Generic Name Dose Route Start Last Admin Trade Name Freq PRN Reason Stop Dose Admin Acetaminophen 650 mg 04/14/25 15:00 Acetaminophen 325 Mg Tablet PO 05/14/25 14:59 Q6H PRN Fever >101.5 Acetaminophen 650 mg 04/14/25 15:00 Acetaminophen 325 Mg Tablet PO 05/14/25 14:59 Q6H PRN PAIN SCALE 1-3 (mild Ascorbic Acid 500 mg 04/17/25 12:15 04/17/25 12:34 Ascorbic Acid 250 Mg Tablet PO 05/17/25 12:14 500 mg BID OMAR Administration Cyanocobalamin 1,000 mcg 04/17/25 12:15 04/17/25 12:34 Cyanocobalamin 500 Mcg Tablet PO 05/17/25 12:14 1,000 mcg QDAY OMAR Administration Dronabinol 2.5 mg 04/14/25 17:00 04/17/25 09:20 Dronabinol 2.5 Mg Capsule PO 05/14/25 16:59 2.5 mg BIDAC OMAR Administration Folic Acid 1 mg 04/17/25 12:15 04/17/25 12:34 Folic Acid 1 Mg Tablet PO 05/17/25 12:14 1 mg QDAY OMAR Administration Heparin Sodium (Porcine) 5,000 unit 04/14/25 22:00 04/17/25 13:49 Heparin Sod Inj 5000 Unit/Ml Vial SC 04/28/25 21:59 Not Given Q8HR OMAR Ondansetron HCl 4 mg 04/14/25 15:00 Ondansetron Inj 2 Mg/Ml Inj 2 Ml IVP 05/14/25 14:59 Q6H PRN NAUSEA OR VOMITING Protocol Oxycodone/Acetaminophen 1 tab 04/14/25 15:00 04/17/25 02:18 Oxycodone/Apap 5/325 Tablet PO 04/19/25 14:59 1 tab Q6H PRN Administration PAIN SCALE 4-6 (Moderate Pantoprazole Sodium 40 mg 04/15/25 09:00 04/17/25 09:19 Pantoprazole 40 Mg Tablet PO 05/15/25 08:59 40 mg QDAY OMAR Administration Pharmacy Consult 1 each 04/14/25 16:36 Pharmacy Renal Dose Adjustment 1 Ea XX 05/14/25 16:35 PRN PRN CONSULT Sennosides 1 tab 04/14/25 15:15 04/17/25 09:19 Senna Tablet PO 05/14/25 15:14 1 tab QDAY OMAR Administration Protocol Sertraline HCl 50 mg 04/14/25 21:00 04/16/25 20:15 Sertraline Hcl 25 Mg Tablet PO 05/14/25 20:59 50 mg HS OMAR Administration Thiamine HCl 100 mg 04/17/25 09:00 04/17/25 09:20 Thiamine 100 Mg Tablet PO 05/17/25 08:59 100 mg QDAY OMAR Administration Vitamin B Complex/Vit C/Folic Acid 1 tab 04/17/25 09:00 04/17/25 09:20 Vit B12/Vit C/Fa (Nephrovite) Tablet PO 05/17/25 08:59 1 tab QDAY OMAR Administration Plan A 79-year-old male patient with past medical history of coronary artery disease status post 1 stent placement in 2017, hypertension, ulcerative colitis, hyperlipidemia, osteoporosis, came to the ED after he was referred from his PCP due to chest pain. Patient was found to have ribs osteolytic lesions and compression fraction of multiple thoracic and lumbar vertebrae. Patient was admitted for management of SAGRARIO, hypercalcemia. Cardiology consulted for Evaluation of patient with chest pain and known history of CAD stent placement. 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 #Coronary artery disease s/p stent placement. -Weeks of chest pain that has been going on for days -EKG and troponin (<0.020) was unremarkable -CT chest/abd/pelvis showed: Widespread and most extensive malignant diseasewith virtually every the bone throughout the thorax, abdomen and pelvis, heavily involved. Numerous moderate compression fractures throughout the spine. Numerous extrapleural mass lesions noted surrounding the lungs, destroying the adjacent ribs. There is a prominent gastric hiatal hernia, Heavy coronary artery calcification at the origin of the left main coronary. -Patient's chest pain likely related to the rib destruction fro metastatic cancer -ECHO (04/14/2025) showed: 1. Left ventricle size is normal and systolic function is normal. Estimated ejection fraction is 60-65%. There is grade I diastolic dysfunction. There is concentric remodeling noted. 2. Right ventricle chamber size is normal and systolic function is normal. 3. There is trace mitral valve regurgitation. 4. The left atrium is mildly enlarged. The right atrium is normal. 5. Not well visualized IVC with estimated RA pressure 8 mmHg. Plan: -Continue the pain treatment -Follow up with oncology and treat accordingly -Cardiac cortez stable. #Hyperlipidemia -Patient on home med Leqvio subcut every 6 months #SAGRARIO most likely prerenal and renal secondary to potential multiple myeloma #History of ulcerative colitis # History obstructive sleep apnea -Management per Primary Hospitalist team Thank you for allowing us to participate in the care of Mr. Jeremy Coronel Assessment and plan discussed with my attending physician Dr. Kike Heath (PGY-1) - Internal medicine resident Attending Provider Attestation/Addendum I have personally seen and examined the patient separately on the above date of service and discussed the plan of care with the resident. I reviewed the resident Dr. Uyen Fischer consultation progress note and agree with the resident findings and plan in the note above and have also edited the documentation to reflect my findings and plan. Tejas Stokes M.D. Interventional Cardiology
--- NOTE | 2025-04-17 08:48 | PC.PT ---
Upon chart review this A.M, patient has low Hgb (6.9) and low Hct (21.0) after lab draws. Patient is unsafe to be seen with low H&H. PT spoke with RN about transfusion and patient does not transfuse for oriental orthodox reasons. Will hold PT eval for today and re-attempt at another time. RN made aware.
[2025-04-17 08:54] LABS: Percent Iron Saturation 100 % (20-55); Total Iron Binding Capacity 227 mcg/dL (250-425); Unsaturated Iron Binding 0 (225-295)
[2025-04-17] MEDS: PANTOPRAZOLE 40 MG TABLET PO (09:19)
[2025-04-17] MEDS: VIT B12/Vit C/FA (Nephrovite) TABLET 1 TAB PO (09:20)
[2025-04-17] MEDS: THIAMINE 100 MG TABLET PO (09:20)
[2025-04-17] MEDS: DEXTROSE 5%-0.45% NS 1,000 ML 150 ML IV (09:21)
[2025-04-17 09:24] LABS: Iron 753 mcg/dL (65-175)
--- NOTE | 2025-04-17 12:06 | ESPR_ITS ---
Documentation for date of: 04/17/25 Subjective Subjective Interval history: Informant at bedside Mr. Coronel is 79-year-old male with history of CAD s/p stent (2004), hypertension, ulcerative colitis (follows Dr. Anderson), severe osteoporosis, and chronic back pain admitted for evaluation of acute kidney injury. Patient was admitted in January 2025 with a similar episode and noted to be in acute renal failure. At that time his symptoms were related to hypercalcemia, weight loss and Forteo. Workup at that time showed a lumbar compression fracture. Apparently patient had an MRI of the right shoulder at [facility] and noted to have significant osteolytic lesions. That prompted for cancer center evaluation. Dr. Camara recommended bone marrow aspiration and biopsy along with FISH analysis. High on the differential was multiple myeloma. His home medications included amlodipine, cetirizine, [place], Plaquenil, mesalamine, prednisone, sertraline 04/14/2025 ER labs showed WBC 5.5, hemoglobin 9.3, platelets 160. INR 1. Sodium 136, potassium 4.4,Creatinine 3.7, GFR 16, calcium 11, magnesium 2, LFTs normal, total protein 9.4 g, albumin 4, globulin 5.4, AFP normal, CEA normal, CA 19-9 normal, urine tox screen pending. Patient had a chest x-ray which showed a mass in the right lung, pathologic fracture in the right eighth rib. CT chest abdomen and pelvis showed extrapleural 7 cm mass in the right lung. Multiple small extrapleural masses destroying the ribs, malignant lesions in the thoracic/lumbar/sacral vertebral bodies-findings consistent with myeloma Patient was started on normal saline. Renal consultation requested for hypercalcemia, SAGRARIO. 04/15/2025 patient currently seen in medical floor. Resting comfortably. Denies any chest pain, shortness of breath. Denies any nausea, vomiting. Labs and medications reviewed. Hemoglobin 7.4, Cr 3.4. Continue with IV fluids. Calcium seems to be better. Pending bone marrow biopsy and aspiration 04/16/2025 Patient currently still on medical floor. Denies any chest pain, shortness of breath, nausea, vomiting. No urinary symptoms of burning or frequency. labs and medications have been reviewed. Hemoglobin 7.4, calcium 10.5, creatinine 3.4, GFR 18. No need for dialysis. 04/17/2025 patient currently seen in medical floor. at bedside. Patient is Roman Catholic. As per his gnosticist cannot accept blood or blood products. blood pressure 147/70, heart rate 71. Hemoglobin 6.9, platelets 122. Sodium 143, potassium 4.4, BUN 27, creatinine 3.2, GFR 19, calcium 10.5, iron 753, iron saturation 100%, phosphorus 4.2, magnesium 1.9, LFTs normal, albumin 3.2 renal cortez stable for discharge although was requesting bone marrow biopsy on Sunday. Not sure if he needs to stay. Spoke to primary team to use a pediatric tubes for blood draws due to his worsening anemia in the setting of myeloma workup. Patient did receive half a gram of iron yesterday with Epogen. Will give another dose of iron today. . Review of Systems Review of Systems Narrative Review of Systems: CONSTITUTIONAL: Patient denies any fever, chills. Complaining of fatigue HEENT: Denies any visual disturbances or hearing problems. CARDIOVASCULAR: Patient denies any chest pain, shortness of breath, swelling in the lower extremities. PULMONARY: Patient denies any shortness of breath, cough. GASTROINTESTINAL: Patient denies any abdominal pain, constipation, nausea, vomiting, diarrhea. GENITOURINARY: Patient denies any urinary symptoms of burning or frequency or hematuria, denies any form in the urine. SKIN: Denies any rash. MUSCULOSKELETAL: Complaining of joint pains and back pain NEUROLOGICAL: Denies any neurological problems of strokes, seizures or confusion. Denies any memory problems. PSYCHIATRIC: Denies any depression or anxiety. LYMPHATICS : No lymphadenopathy Exam Vital Signs Temp Pulse Resp BP Pulse Ox O2 Del Method 36.1 C 60 18 131/70 H 95 Room Air 04/17/25 08:00 04/17/25 08:00 04/17/25 08:00 04/17/25 08:00 04/17/25 08:00 04/17/25 08:00 Narrative Exam GENERAL APPEARANCE: Patient seems to be comfortable, adequately hydrated and nourished. HEENT: EOMI, PERRLA NECK: Neck supple, no JVD or bruit CARDIOVASCULAR: Heart regular, no murmurs LUNGS/CHEST: Chest clear to auscultation. No rales, rhonchi, wheezing ABDOMEN: Soft, nontender, nondistended. No masses. Normal bowel sounds. EXTREMITIES: No edema, clubbing or cyanosis. SKIN: Skin exam normal without any rashes MUSCULOSKELETAL: Musculoskeletal exam normal PSYCHIATRIC: Normal mood, affect LYMPHATICS: No lymphadenopathy noted NEUROLOGICAL : No neurological deficits Objective Labs 04/17/25 05:10 04/17/25 05:10 Labs: Laboratory Results - last 24 hr 04/15/25 04/17/25 18:47 05:10 WBC 4.4 RBC 2.14 L Hgb 6.9 L* Hct 21.0 L* MCV 98 MCH 32.7 MCHC 33.3 RDW Std Deviation 47.0 H Plt Count 122 L Neut % (Auto) 60 Lymph % (Auto) 27 [place] % (Auto) 10 Eos % (Auto) 2 Baso % (Auto) 0 Neut # (Auto) 2.6 Lymph # (Auto) 1.2 [place] # (Auto) 0.5 Eos # (Auto) 0.1 Baso # (Auto) 0.0 Immature Gran # (Auto) 0.06 H Absolute Nucleated RBC 0.00 Immature Gran % 1 H Nucleated RBC % 0 Smear Path Review Sent to Pathologist Sodium 143 Potassium 4.4 Chloride 111 H Carbon Dioxide 21.6 Anion Gap 10 BUN 27 H Creatinine 3.2 H Estim Creat Clear Calc 13.9 L eGFR 19 L BUN/Creatinine Ratio 8 L Glucose 100 Calculated Osmolality 290 Calcium 9.9 Corrected Calcium 10.5 H Phosphorus 4.2 Magnesium 1.9 Iron 753 H* TIBC 227 L Iron Saturation 100 H Unsat Iron Binding 0 L Total Bilirubin 0.2 L AST 17 ALT 11 Alkaline Phosphatase 74 Total Protein 7.1 Albumin 3.2 L Globulin 3.9 H Albumin/Globulin Ratio 0.8 L Crossmatch See Detail Assessment & Plan Additional Assessment & Plan Additional Plan: 79-year-old male with age-related CKD and SAGRARIO likely prerenal secondary to volume depletion and humoral hypercalcemia of malignancy. # SAGRARIO Likely prerenal etiology due to dehydration and humoral hypercalcemia; agree with aggressive fluid resuscitation Plan: * Trend BMP daily * Strict I&O and daily weights. * Continue with IV fluids * Cr 3.2 * # Hypercalcemia patient asymptomatic. Probably related to underlying malignancy-myeloma Plan: * Calcium stable-DC IV fluids # CKD III Imaging and prior data show bilateral cortical thinning and renal scarring, consistent with chronic kidney disease likely secondary to longstanding hypertension and vascular disease. Plan: * Educate patient regarding CKD precautions (avoid NSAIDs, contrast, dehydration). * Maintain renal-friendly diet and follow up with outpatient nephrology for CKD management. * BP and glycemic control skilled nursing. # Multiple lytic lesions Workup for myeloma pending Plan: * Continue with IV fluids, pain management * Will order bone marrow biopsy and aspiration # Hypertension Currently normotensive Plan: * Per primary team # Osteoporosis History of Forteo use with adverse effects. Plan: * Avoid bisphosphonates during SAGRARIO. Care discussed with primary team. #Anemia Patient Roman Catholic-Daily iron and Epogen. Avoid frequent blood draws. Probably needs every other day lab draw with pediatric tubes. I also added vitamin C, folic acid, vitamin B12 along with iron today. his iron stores seems to be adequate. Thank you Alejandra for allowing me to participate in the care of Mr. Luna
[2025-04-17] MEDS: FOLIC ACID 1 MG TABLET PO (12:34)
[2025-04-17] MEDS: ASCORBIC ACID 250 MG TABLET 500 MG PO ×2 (12:34→20:18)
[2025-04-17] MEDS: ferumoxytoL (NON-ESRD) 510 MG in SODIUM CHLORIDE 0.9% 100 ML 234 MG IV (13:36)
--- NOTE | 2025-04-17 14:45 | ESPR_ITS ---
Documentation for date of: 04/17/25 Subjective Subjective Interval history: Patient was seen and examined at bedside. Denied any new symptoms. Still somehow underactive however he reported significant improvement since he came. Noticed that he ate 75% of his meal yesterday. This morning his hemoglobin noticed to be 6.9. However the patient is Orthodox and rejected blood transfusion. Order for the patient iron studies, we started the patient on vitamin B complex, iron IV infusion. His serum creatinine mildly improved to 3.2, his calcium is 2.2, his chloride noticed to be increased from 111 most likely secondary to NS IV infusions. Will switch him to D5 half NS 150 mL. We discharged to the lab to ask him for peds sampling to avoid excessive blood draws. Anticipated discharge tomorrow if cleared by nephrology. Exam Vital Signs Temp Pulse Resp BP Pulse Ox O2 Del Method 97.6 F 66 18 134/69 H 92 L Room Air 04/17/25 12:00 04/17/25 12:00 04/17/25 12:00 04/17/25 12:00 04/17/25 12:00 04/17/25 12:00 Narrative Exam GEN: AOx3, looks pale, able to speak full sentences HEENT: NC/AC, PERRLA, oral mucosa dry, neck supple CVS: RRR, S1-S2 present, no murmurs appreciated RESP: CTAB GI: soft,non distended, non tender, NBS MSK: able to move all 4 limbs, no lower extremity edema SKIN: warm and dry SECTION [employer]: CN II-XII and Sensation grossly intact. Objective Labs 04/18/25 04:39 04/18/25 04:39 Labs: Laboratory Results - last 24 hr 04/15/25 04/17/25 18:47 05:10 WBC 4.4 RBC 2.14 L Hgb 6.9 L* Hct 21.0 L* MCV 98 MCH 32.7 MCHC 33.3 RDW Std Deviation 47.0 H Plt Count 122 L Neut % (Auto) 60 Lymph % (Auto) 27 [place] % (Auto) 10 Eos % (Auto) 2 Baso % (Auto) 0 Neut # (Auto) 2.6 Lymph # (Auto) 1.2 [place] # (Auto) 0.5 Eos # (Auto) 0.1 Baso # (Auto) 0.0 Immature Gran # (Auto) 0.06 H Absolute Nucleated RBC 0.00 Immature Gran % 1 H Nucleated RBC % 0 Smear Path Review Sent to Pathologist Sodium 143 Potassium 4.4 Chloride 111 H Carbon Dioxide 21.6 Anion Gap 10 BUN 27 H Creatinine 3.2 H Estim Creat Clear Calc 13.9 L eGFR 19 L BUN/Creatinine Ratio 8 L Glucose 100 Calculated Osmolality 290 Calcium 9.9 Corrected Calcium 10.5 H Phosphorus 4.2 Magnesium 1.9 Iron 753 H* TIBC 227 L Iron Saturation 100 H Unsat Iron Binding 0 L Total Bilirubin 0.2 L AST 17 ALT 11 Alkaline Phosphatase 74 Total Protein 7.1 Albumin 3.2 L Globulin 3.9 H Albumin/Globulin Ratio 0.8 L Crossmatch See Detail Quality Measures Quality Measures none Advance care planning discussed with:: patient Assessment & Plan Assessment Current Active Medications: Generic Name Dose Route Start Last Admin Trade Name Freq PRN Reason Stop Dose Admin Acetaminophen 650 mg 04/14/25 15:00 Acetaminophen 325 Mg Tablet PO 05/14/25 14:59 Q6H PRN Fever >101.5 Acetaminophen 650 mg 04/14/25 15:00 Acetaminophen 325 Mg Tablet PO 05/14/25 14:59 Q6H PRN PAIN SCALE 1-3 (mild Ascorbic Acid 500 mg 04/17/25 12:15 04/17/25 12:34 Ascorbic Acid 250 Mg Tablet PO 05/17/25 12:14 500 mg BID OMAR Administration Cyanocobalamin 1,000 mcg 04/17/25 12:15 04/17/25 12:34 Cyanocobalamin 500 Mcg Tablet PO 05/17/25 12:14 1,000 mcg QDAY OMAR Administration Dronabinol 2.5 mg 04/14/25 17:00 04/17/25 09:20 Dronabinol 2.5 Mg Capsule PO 05/14/25 16:59 2.5 mg BIDAC OMAR Administration Folic Acid 1 mg 04/17/25 12:15 04/17/25 12:34 Folic Acid 1 Mg Tablet PO 05/17/25 12:14 1 mg QDAY OMAR Administration Heparin Sodium (Porcine) 5,000 unit 04/14/25 22:00 04/17/25 13:49 Heparin Sod Inj 5000 Unit/Ml Vial SC 04/28/25 21:59 Not Given Q8HR OMAR Ondansetron HCl 4 mg 04/14/25 15:00 Ondansetron Inj 2 Mg/Ml Inj 2 Ml IVP 05/14/25 14:59 Q6H PRN NAUSEA OR VOMITING Protocol Oxycodone/Acetaminophen 1 tab 04/14/25 15:00 04/17/25 02:18 Oxycodone/Apap 5/325 Tablet PO 04/19/25 14:59 1 tab Q6H PRN Administration PAIN SCALE 4-6 (Moderate Pantoprazole Sodium 40 mg 04/15/25 09:00 04/17/25 09:19 Pantoprazole 40 Mg Tablet PO 05/15/25 08:59 40 mg QDAY OMAR Administration Pharmacy Consult 1 each 04/14/25 16:36 Pharmacy Renal Dose Adjustment 1 Ea XX 05/14/25 16:35 PRN PRN CONSULT Sennosides 1 tab 04/14/25 15:15 04/17/25 09:19 Senna Tablet PO 05/14/25 15:14 1 tab QDAY OMAR Administration Protocol Sertraline HCl 50 mg 04/14/25 21:00 04/16/25 20:15 Sertraline Hcl 25 Mg Tablet PO 05/14/25 20:59 50 mg HS OMAR Administration Thiamine HCl 100 mg 04/17/25 09:00 04/17/25 09:20 Thiamine 100 Mg Tablet PO 05/17/25 08:59 100 mg QDAY OMAR Administration Vitamin B Complex/Vit C/Folic Acid 1 tab 04/17/25 09:00 04/17/25 09:20 Vit B12/Vit C/Fa (Nephrovite) Tablet PO 05/17/25 08:59 1 tab QDAY OMAR Administration Plan A 79-year-old male patient with past medical history of coronary artery disease status post 1 stent placement in 2024, hypertension, ulcerative colitis, hyperlipidemia, osteoporosis, came to the ED after he was referred from his PCP due to chest pain. Patient reported that he has been having chest pain for the past week. Patient was found to have ribs osteolytic lesions and compression fraction of multiple thoracic and lumbar vertebrae. Patient was admitted for management of SAGRARIO, hypercalcemia. #Normocytic anemia most likely secondary to multiple myeloma #Chest pain most likely secondary to bone destruction #Osteolytic lesion, multiple, most likely secondary to multiple myeloma versus less likely other malignancy #Thoracic vertebrae fracture #Hypercalcemia (improving) #History of osteoporosis Patient presented to the ED with chest pain, questioning reported that the pain has been going on for days to weeks. EKG and troponin were negative CT abdomen and pelvis and chest showed large mass lesion measuring 7 x 3.5 cm in diameter in the right midlung, also extrapleural mass destroying the rib in the same side. There is also extrapleural mass destroying the rib over the posterior base of the left lower lobe that measures 4.5 cm. There was also small definite areas of biapical pleural calcifications, also multiple osteolytic lesions and multiple vertebral compression fractures. Patient was found to have low protein/albumin ratio, SAGRARIO, anoxia, weight loss, hypercalcemia which indicate high possibility of multiple myeloma Patient was found to have calcium level of 11.1. Calcium today on the 26 is 10.5 corrected. Serum creatinine improved to 3.2. Plan ? Pain management per protocol - Consult oncologist Dr. Rothman- recommendation appreciated - Retacrit 10,000 unit SC and ferumoxytol 510mg IV x1. ? Will reach out to the oncologist Dr. Cheatham for further follow-up and recommendations ? D5-1/2 [id number] - Dronabinol for appetite stimulation ? Ordered bone marrow aspiration and biopsy, pending #SAGRARIO most likely prerenal and renal secondary to potential multiple myeloma Patient was found to have calcium level of 11.1 which may cause tubular diabetes insipidus. Patient was found to be dehydrated, serum creatinine at baseline was 1.5 however on presentation serum creatinine is 3.2 Patient does not seem to be take any nephrotoxic medications. Given the patient osteolytic lesions, hypercalcemia, SAGRARIO we believe most likely his SAGRARIO secondary to multiple myeloma Nephrology recommended that the patient can be discharged if he continued to have GFR above 15. FeNa score 0.6, Pre-renal SAGRARIO, No no prostatomegaly, PSA in January 2025 was normal. Plan ? Nephrology consultation to Dr. Arthur recommendations appreciated- ? Denosumab recommended by nephrology as above-> pt resume stating it affects its kidney ? Pharmacy to dose medications ? Avoid nephrotoxic medications ? Dialysis if indicated #History of ulcerative colitis Patient reported that he has history of ulcerative colitis and its wall controlled with mesalamine. Last colonoscopy was last year and it was negative for any malignancy CEA <0.5 alpha-fetoprotein 1.90 Plan ? Continue home medication mesalamine ? Cancer screening with CA 19 pending #History of coronary artery disease s/p 1 stent placement On questioning patient denied any exertional chest pain, symptoms did not indicate that the patient has typical chest pain. Troponin and EKG were negative for any ischemic changes BNP was within normal limits Plan ? Strict in and out ? Will reach out to the environmental technical officer Dr. Guadarrama if needed #History of hyperlipidemia Leqvio [id number] outpatient # History obstructive sleep apnea Patient has a history of EVERT for which was diagnosed outpatient. Patient used CPAP at home. - Continue CPAP at night PRN Hospital Maintenance: FEN: Cardiac diet DVT ppx: Heparin subcu GI ppx: Protonix p.o. IV lines: PIV [place]: None Code status: Full code Dispo: Admit to med/tele Blood transfusion: No, Orthodox - Patient's plan and care discussed with my attending, Dr. Rabia Espitia MD Internal Medicine PGY-3 Attending Provider Attestation/Addendum I have discussed and was present for the essential components of the history, physical examination, diagnosis, and treatment plan with the resident. I agree with the patient's care as documented by the resident and amended herein by me. Jeremy Camarillo DO. Although this document has been carefully reviewed, there may still be some phonetic and other typographical errors. These errors are purely grammatical due to imperfections in the software program and should not be construed in any way to compromise the substance of the patient's medical care during this visit.
[2025-04-17] MEDS: SERTRALINE HCL 25 MG TABLET 50 MG PO (20:17)
[2025-04-18] VITALS (7 sets, daily range): BP systolic 131–163; BP diastolic 61–80; PULSE 65–88; RESP 16–94; TEMP 36.2–36.6; O2SAT 91–94
[2025-04-18 06:04] LABS: Basophils # (Auto) 0.0 Thou/mm3 (0.0-0.2); Basophils % (Auto) 0 % (0-2.5); Eosinophils # (Auto) 0.1 Thou/mm3 (0.0-0.5); Eosinophils % (Auto) 2 % (0-10); Hematocrit 24.5 % (41.0-53.0); Immature Granulocytes Auto 0.11 Thou/mm3 (0.00-0.00); Lymphocytes # (Auto) 1.5 Thou/mm3 (1.0-4.8); Lymphocytes % (Auto) 31 % (10-50); Mean Corpuscular HGB Conc 33.9 g/dl (31.0-37.0); Mean Corpuscular Hemoglobin 32.8 pg (25.0-35.0); Mean Corpuscular Volume 97 fL (80-100); Monocytes # (Auto) 0.5 Thou/mm3 (0.0-0.8); Monocytes % (Auto) 10 % (0-12); Neutrophils # (Auto) 2.8 Thou/mm3 (1.8-7.7); Neutrophils % (Auto) 55 % (37-80); Nucleated Red Blood Cell # 0.00 Thou/mm3 (0.00-0.00); Nucleated Red Blood Cell % 0 /100 WBC (0); Platelet Count 170 Thou/mm3 (140-440); RDW Standard Deviation 47.2 fL (35.1-43.9); Red Blood Count 2.53 Miln/mm3 (4.50-5.90); White Blood Count 5.1 Thou/mm3 (3.8-10.6)
[2025-04-18 06:05] LABS: Hemoglobin 8.3 g/dL (13.5-16.0)
[2025-04-18 06:21] LABS: Albumin, Serum 3.5 gm/dL (3.4-4.8); Anion Gap 12 (7-16); BUN/Creatinine Ratio 7 Ratio (12-20); Blood Urea Nitrogen 22 mg/dL (9-23); Calcium 10.7 mg/dL (8.3-10.6); Calcium (Corrected) 11.1 mg/dL (8.5-10.1); Carbon Dioxide 23.2 mMol/L (20.0-31.0); Chloride 108 mMol/L (98-107); Creatinine (Component) 3.1 mg/dL (0.6-1.3); Estimated Creatinine Clearance 14.2 mL/min (>60); Glucose 96 mg/dL (74-106); Osmolality,Calculated 288 (275-295); Phosphorous 4.4 mg/dL (2.4-5.1); Potassium 4.3 mMol/L (3.4-5.1); Sodium 143 mMol/L (136-145); eGFR 20 See Note
--- NOTE | 2025-04-18 08:50 | PD.RESPRO ---
Documentation for date of: 04/18/25 Subjective Subjective Interval history: Patient seen examined at bedside. Resting comfortably in bed. No current complaints. Hemoglobin improved status post transfusion. Patient will be discharged today. Exam Vital Signs Temp Pulse Resp BP Pulse Ox O2 Del Method 97.7 F 71 18 143/69 H 92 L Room Air 04/18/25 08:00 04/18/25 08:00 04/18/25 08:00 04/18/25 08:00 04/18/25 08:00 04/18/25 08:00 Narrative Exam General: No acute distress, well nourished, AAO x3 Eye:normal conjunctiva, no scleral icterus HENT: Normocephalic, atraumatic, hearing intact to conversation at normal volume, moist oral mucosa Neck: Supple, non-tender, no JVD, no lymphadenopathy Lungs: Non-labored respirations, symmetric chest rise, Clear to auscultate bilaterally, No wheezing, rhonchi, crackles Heart: Peripheral pulses intact bilaterally, Regular Rate and Rhythm. Abdomen: Soft, non-tender, non-distended, no palpable masses Musculoskeletal: Normal range of motion and strength, No cyanosis or edema, No visible joint swelling Skin: Skin is warm, dry, no rashes or lesions. Psychiatric: Cooperative, appropriate mood and affect, Awake and alert, not agitated Neuro: Cranial nerves II-XII grossly intact. Sensations intact to light touch. Objective Labs 04/18/25 04:39 04/18/25 04:39 Labs: Laboratory Results - last 24 hr 04/17/25 04/18/25 05:10 04:39 WBC 5.1 RBC 2.53 L Hgb 8.3 L D Hct 24.5 L MCV 97 MCH 32.8 MCHC 33.9 RDW Std Deviation 47.2 H Plt Count 170 D Neut % (Auto) 55 Lymph % (Auto) 31 [place] % (Auto) 10 Eos % (Auto) 2 Baso % (Auto) 0 Neut # (Auto) 2.8 Lymph # (Auto) 1.5 [place] # (Auto) 0.5 Eos # (Auto) 0.1 Baso # (Auto) 0.0 Immature Gran # (Auto) 0.11 H Absolute Nucleated RBC 0.00 Immature Gran % 2 H Nucleated RBC % 0 Sodium 143 Potassium 4.3 Chloride 108 H Carbon Dioxide 23.2 Anion Gap 12 BUN 22 Creatinine 3.1 H Estim Creat Clear Calc 14.2 L eGFR 20 L BUN/Creatinine Ratio 7 L Glucose 96 Calculated Osmolality 288 Calcium 10.7 H Corrected Calcium 11.1 H Phosphorus 4.4 Iron 753 H* TIBC 227 L Iron Saturation 100 H Unsat Iron Binding 0 L Albumin 3.5 Quality Measures Quality Measures none Advance care planning discussed with:: patient Assessment & Plan Assessment Current Active Medications: Generic Name Dose Route Start Last Admin Trade Name Freq PRN Reason Stop Dose Admin Acetaminophen 650 mg 04/14/25 15:00 Acetaminophen 325 Mg Tablet PO 05/14/25 14:59 Q6H PRN Fever >101.5 Acetaminophen 650 mg 04/14/25 15:00 Acetaminophen 325 Mg Tablet PO 05/14/25 14:59 Q6H PRN PAIN SCALE 1-3 (mild Amlodipine Besylate 10 mg 04/18/25 09:00 Amlodipine Besylate 5 Mg Tablet PO 05/18/25 08:59 QDAY OMAR Ascorbic Acid 500 mg 04/17/25 12:15 04/17/25 20:18 Ascorbic Acid 250 Mg Tablet PO 05/17/25 12:14 500 mg BID OMAR Administration Cyanocobalamin 1,000 mcg 04/17/25 12:15 04/17/25 12:34 Cyanocobalamin 500 Mcg Tablet PO 05/17/25 12:14 1,000 mcg QDAY OMAR Administration Dronabinol 2.5 mg 04/14/25 17:00 04/18/25 07:51 Dronabinol 2.5 Mg Capsule PO 05/14/25 16:59 2.5 mg BIDAC OMAR Administration Folic Acid 1 mg 04/17/25 12:15 04/17/25 12:34 Folic Acid 1 Mg Tablet PO 05/17/25 12:14 1 mg QDAY OMAR Administration Heparin Sodium (Porcine) 5,000 unit 04/14/25 22:00 04/18/25 05:35 Heparin Sod Inj 5000 Unit/Ml Vial SC 04/28/25 21:59 Not Given Q8HR [facility] Ondansetron HCl 4 mg 04/14/25 15:00 Ondansetron Inj 2 Mg/Ml Inj 2 Ml IVP 05/14/25 14:59 Q6H PRN NAUSEA OR VOMITING Protocol Oxycodone/Acetaminophen 1 tab 04/14/25 15:00 04/17/25 02:18 Oxycodone/Apap 5/325 Tablet PO 04/19/25 14:59 1 tab Q6H PRN Administration PAIN SCALE 4-6 (Moderate Pantoprazole Sodium 40 mg 04/15/25 09:00 04/17/25 09:19 Pantoprazole 40 Mg Tablet PO 05/15/25 08:59 40 mg QDAY OMAR Administration Pharmacy Consult 1 each 04/14/25 16:36 Pharmacy Renal Dose Adjustment 1 Ea XX 05/14/25 16:35 PRN PRN CONSULT Sennosides 1 tab 04/14/25 15:15 04/17/25 09:19 Senna Tablet PO 05/14/25 15:14 1 tab QDAY OMAR Administration Protocol Sertraline HCl 50 mg 04/14/25 21:00 04/17/25 20:17 Sertraline Hcl 25 Mg Tablet PO 05/14/25 20:59 50 mg HS OMAR Administration Thiamine HCl 100 mg 04/17/25 09:00 04/17/25 09:20 Thiamine 100 Mg Tablet PO 05/17/25 08:59 100 mg QDAY OMAR Administration Vitamin B Complex/Vit C/Folic Acid 1 tab 04/17/25 09:00 04/17/25 09:20 Vit B12/Vit C/Fa (Nephrovite) Tablet PO 05/17/25 08:59 1 tab QDAY OMAR Administration Plan A 79-year-old male patient with past medical history of coronary artery disease status post 1 stent placement in 2017, hypertension, ulcerative colitis, hyperlipidemia, osteoporosis, came to the ED after he was referred from his PCP due to chest pain. Patient was found to have ribs osteolytic lesions and compression fraction of multiple thoracic and lumbar vertebrae. Patient was admitted for management of SAGRARIO, hypercalcemia. Cardiology consulted for Evaluation of patient with chest pain and known history of CAD stent placement. 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 #Coronary artery disease s/p stent placement. -Weeks of chest pain that has been going on for days -EKG and troponin (<0.020) was unremarkable -CT chest/abd/pelvis showed: Widespread and most extensive malignant diseasewith virtually every the bone throughout the thorax, abdomen and pelvis, heavily involved. Numerous moderate compression fractures throughout the spine. Numerous extrapleural mass lesions noted surrounding the lungs, destroying the adjacent ribs. There is a prominent gastric hiatal hernia, Heavy coronary artery calcification at the origin of the left main coronary. -Patient's chest pain likely related to the rib destruction fro metastatic cancer -ECHO (04/14/2025) showed: 1. Left ventricle size is normal and systolic function is normal. Estimated ejection fraction is 60-65%. There is grade I diastolic dysfunction. There is concentric remodeling noted. 2. Right ventricle chamber size is normal and systolic function is normal. 3. There is trace mitral valve regurgitation. 4. The left atrium is mildly enlarged. The right atrium is normal. 5. Not well visualized IVC with estimated RA pressure 8 mmHg. Plan: -Continue the pain treatment -Follow up with oncology and treat accordingly -Cardiac cortez stable. #Hyperlipidemia -Patient on home med Leqvio subcut every 6 months #SAGRARIO most likely prerenal and renal secondary to potential multiple myeloma #History of ulcerative colitis # History obstructive sleep apnea -Management per Primary Hospitalist team Thank you for the consult and allowing to participate in the care of the patient. Cardiology will continue to follow. Case discussed with Attending Physician Dr. Tejas Fischer MD Internal Medicine PGY-2 Disclaimer: This note was dictated by speech recognition. Minor errors in pesticide applicator may be present due to voice recognition software. Attending Provider Attestation/Addendum I reviewed the resident Uyen Fischer consultation progress note and agree with the resident findings and plan in the note above and have also edited the documentation to reflect my findings and plan. Tejas Stokes M.D. Interventional Cardiology
[2025-04-18] MEDS: FOLIC ACID 1 MG TABLET PO (09:04)
[2025-04-18] MEDS: ASCORBIC ACID 250 MG TABLET 500 MG PO (09:04)
[2025-04-18] MEDS: THIAMINE 100 MG TABLET PO (09:04)
[2025-04-18] MEDS: PANTOPRAZOLE 40 MG TABLET PO (09:04)
[2025-04-18] MEDS: VIT B12/Vit C/FA (Nephrovite) TABLET 1 TAB PO (09:04)
--- NOTE | 2025-04-18 09:48 | ESPR_ITS ---
Documentation for date of: 04/18/25 Subjective Subjective Interval history: Informant at bedside Mr. Coronel is 79-year-old male with history of CAD s/p stent (2004), hypertension, ulcerative colitis (follows Dr. Anderson), severe osteoporosis, and chronic back pain admitted for evaluation of acute kidney injury. Patient was admitted in January 2025 with a similar episode and noted to be in acute renal failure. At that time his symptoms were related to hypercalcemia, weight loss and Forteo. Workup at that time showed a lumbar compression fracture. Apparently patient had an MRI of the right shoulder at [facility] and noted to have significant osteolytic lesions. That prompted for cancer center evaluation. Dr. Camara recommended bone marrow aspiration and biopsy along with FISH analysis. High on the differential was multiple myeloma. His home medications included amlodipine, cetirizine, Dupont, Plaquenil, mesalamine, prednisone, sertraline 04/14/2025 ER labs showed WBC 5.5, hemoglobin 9.3, platelets 160. INR 1. Sodium 136, potassium 4.4,Creatinine 3.7, GFR 16, calcium 11, magnesium 2, LFTs normal, total protein 9.4 g, albumin 4, globulin 5.4, AFP normal, CEA normal, CA 19-9 normal, urine tox screen pending. Patient had a chest x-ray which showed a mass in the right lung, pathologic fracture in the right eighth rib. CT chest abdomen and pelvis showed extrapleural 7 cm mass in the right lung. Multiple small extrapleural masses destroying the ribs, malignant lesions in the thoracic/lumbar/sacral vertebral bodies-findings consistent with myeloma Patient was started on normal saline. Renal consultation requested for hypercalcemia, SAGRARIO. 04/15/2025 patient currently seen in medical floor. Resting comfortably. Denies any chest pain, shortness of breath. Denies any nausea, vomiting. Labs and medications reviewed. Hemoglobin 7.4, Cr 3.4. Continue with IV fluids. Calcium seems to be better. Pending bone marrow biopsy and aspiration 04/16/2025 Patient currently still on medical floor. Denies any chest pain, shortness of breath, nausea, vomiting. No urinary symptoms of burning or frequency. labs and medications have been reviewed. Hemoglobin 7.4, calcium 10.5, creatinine 3.4, GFR 18. No need for dialysis. 04/17/2025 patient currently seen in medical floor. at bedside. Patient is Adventist. As per his christian cannot accept blood or blood products. blood pressure 147/70, heart rate 71. Hemoglobin 6.9, platelets 122. Sodium 143, potassium 4.4, BUN 27, creatinine 3.2, GFR 19, calcium 10.5, iron 753, iron saturation 100%, phosphorus 4.2, magnesium 1.9, LFTs normal, albumin 3.2 renal cortez stable for discharge although was requesting bone marrow biopsy on Sunday. Not sure if he needs to stay. Spoke to primary team to use a pediatric tubes for blood draws due to his worsening anemia in the setting of myeloma workup. Patient did receive half a gram of iron yesterday with Epogen. Will give another dose of iron today. 04/18/2025 patient currently seen in medical floor. He is Adventist and I noted yesterday that his hemoglobin dropped to less than 7. Gave him a dose of IV iron, vitamin C, B12, folic acid. Today his hemoglobin is above 8. Creatinine still remains stable at 3.0. Calcium tad elevated at 11.1. His myeloma workup is in progress and has seen Dr. Rivera in the outpatient setting. Suggested that he needs to go back and see her for further evaluation. Patient agreed. Renal cortez stable for discharge. I can see him in my office in 1 to 2 weeks. Care discussed with primary team . Review of Systems Review of Systems Narrative Review of Systems: CONSTITUTIONAL: Patient denies any fever, chills. Complaining of fatigue HEENT: Denies any visual disturbances or hearing problems. CARDIOVASCULAR: Patient denies any chest pain, shortness of breath, swelling in the lower extremities. PULMONARY: Patient denies any shortness of breath, cough. GASTROINTESTINAL: Patient denies any abdominal pain, constipation, nausea, vomiting, diarrhea. GENITOURINARY: Patient denies any urinary symptoms of burning or frequency or hematuria, denies any form in the urine. SKIN: Denies any rash. MUSCULOSKELETAL: Complaining of joint pains and back pain NEUROLOGICAL: Denies any neurological problems of strokes, seizures or confusion. Denies any memory problems. PSYCHIATRIC: Denies any depression or anxiety. LYMPHATICS : No lymphadenopathy Exam Vital Signs Temp Pulse Resp BP Pulse Ox O2 Del Method 36.5 C 71 18 143/69 H 92 L Room Air 04/18/25 08:00 04/18/25 09:04 04/18/25 08:00 04/18/25 09:04 04/18/25 08:00 04/18/25 08:00 Narrative Exam GENERAL APPEARANCE: Patient seems to be comfortable, adequately hydrated and nourished. HEENT: EOMI, PERRLA NECK: Neck supple, no JVD or bruit CARDIOVASCULAR: Heart regular, no murmurs LUNGS/CHEST: Chest clear to auscultation. No rales, rhonchi, wheezing ABDOMEN: Soft, nontender, nondistended. No masses. Normal bowel sounds. EXTREMITIES: No edema, clubbing or cyanosis. SKIN: Skin exam normal without any rashes MUSCULOSKELETAL: Musculoskeletal exam normal PSYCHIATRIC: Normal mood, affect LYMPHATICS: No lymphadenopathy noted NEUROLOGICAL : No neurological deficits Objective Labs 04/18/25 04:39 04/18/25 04:39 Labs: Laboratory Results - last 24 hr 04/18/25 04:39 WBC 5.1 RBC 2.53 L Hgb 8.3 L D Hct 24.5 L MCV 97 MCH 32.8 MCHC 33.9 RDW Std Deviation 47.2 H Plt Count 170 D Neut % (Auto) 55 Lymph % (Auto) 31 [place] % (Auto) 10 Eos % (Auto) 2 Baso % (Auto) 0 Neut # (Auto) 2.8 Lymph # (Auto) 1.5 [place] # (Auto) 0.5 Eos # (Auto) 0.1 Baso # (Auto) 0.0 Immature Gran # (Auto) 0.11 H Absolute Nucleated RBC 0.00 Immature Gran % 2 H Nucleated RBC % 0 Sodium 143 Potassium 4.3 Chloride 108 H Carbon Dioxide 23.2 Anion Gap 12 BUN 22 Creatinine 3.1 H Estim Creat Clear Calc 14.2 L eGFR 20 L BUN/Creatinine Ratio 7 L Glucose 96 Calculated Osmolality 288 Calcium 10.7 H Corrected Calcium 11.1 H Phosphorus 4.4 Albumin 3.5 Assessment & Plan Additional Assessment & Plan Additional Plan: 79-year-old male with age-related CKD and SAGRARIO likely prerenal secondary to volume depletion and humoral hypercalcemia of malignancy. # SAGRARIO Likely prerenal etiology due to dehydration and humoral hypercalcemia; agree with aggressive fluid resuscitation Plan: * Trend BMP daily * Strict I&O and daily weights. * Continue with IV fluids * Cr 3.0 * # Hypercalcemia patient asymptomatic. Probably related to underlying malignancy-myeloma Plan: * Calcium elevated- off IVF * Calcium 11.1. Emphasized p.o. fluids. Suggested to follow-up with Dr. Rivera. # CKD III Imaging and prior data show bilateral cortical thinning and renal scarring, consistent with chronic kidney disease likely secondary to longstanding hypertension and vascular disease. Plan: * Educate patient regarding CKD precautions (avoid NSAIDs, contrast, dehydration). * Maintain renal-friendly diet and follow up with outpatient nephrology for CKD management. * BP and glycemic control assisted. # Multiple lytic lesions Workup for myeloma pending Plan: * Continue with IV fluids, pain management * Will order bone marrow biopsy and aspiration # Hypertension Currently normotensive Plan: * Per primary team # Osteoporosis History of Forteo use with adverse effects. Plan: * Avoid bisphosphonates during SAGRARIO. Care discussed with primary team. #Anemia Patient Adventist-Daily iron and Epogen. Avoid frequent blood draws. Probably needs every other day lab draw with pediatric tubes. I also added vitamin C, folic acid, vitamin B12 along with iron-hemoglobin improved today. His iron stores seems to be adequate. Thank you Alejandra for allowing me to participate in the care of Mr. Luna
--- NOTE | 2025-04-18 09:54 | PC.PT ---
Patient was approached for PT eval at 0900. Patient reports he has been getting up to the bathroom with FWW and RN supervision only. Patient feels like he is okay and does not need PT eval. Patient does not wish to be seen by PT at this time and confirmed with this PT that he would like to cancel the order. Patient is inquiring about a new rollator walker if possible upon D/C. SW made aware. Will cancel PT eval 05/25 patient does not want PT and feels like he is okay at this time. RN made aware.
--- NOTE | 2025-04-18 12:23 | ESDS_ITS ---
<Statement entered by Aminata Espitia MD - 04/19/25 13:46> Patient was seen and examined at bedside. I agree on the assessment and plan on this note. - Patient's plan and care discussed with my attending, Dr. Rabia Espitia MD Internal Medicine PGY-3 Planned Discharge Date 04/18/25 DS: Providers Provider Date of admission: 04/14/25 14:59 Primary care physician: Yoly Polo MD Admitting Provider: Alejandra Leary MD Attending Provider on Admission: Alejandra Leary MD Consults: 04/14/25 08:56 Consult to Cardiology Routine Comment: Consulting Provider: Viktor Guadarrama 04/14/25 12:52 Consult to Nephrology Stat Comment: Consulting Provider: Yoselyn Arthur 04/15/25 12:59 Consult to Oncology Urgent Comment: Consulting Provider: Mykel Rothman Attending Provider on DC: Leandro Camarillo MD Discharging Provider: Leandro Camarillo MD Anticipated date of discharge: 04/18/25 DS: Diagnosis Problem List Completed Was Problem List Reviewed/Reconciled?: Yes Hospital Course Hospital Course Hospital course: Summary A 79-year-old male patient with past medical history of CAD s/p 1 stent placement, hypertension, ulcerative colitis, hyperlipidemia, osteoporosis, came to the ED on 04/14/25 after he was referred from his PCP due to chest pain. Cardiac work up was negative. Patient was found to have ribs osteolytic lesions and compression fraction of multiple thoracic and lumbar vertebrae. Patient was admitted for management of SAGRARIO, hypercalcemia. In ED, EKG was negative for any ischemic changes, chest abdomen and pelvis CT scan was ordered by the ED team and showed large mass lesion measuring 7 x 3.5 cm in diameter in the right midlung, also extrapleural mass destroying the rib in the same side. There is also extrapleural mass destroying the rib over the posterior base of the left lower lobe that measures 4.5 cm. There was also small definite areas of biapical pleural calcifications, also multiple osteolytic lesions and multiple vertebral compression fractures. Labs was significant for BUN level of 36, Cr of 3.7, calcium level of 11 corrected, magnesium 2.0, noticed high protein level of 9.4. Patient was manage with pain medication, aggressive fluid resuscitation, bone marrow aspiration biopsy ordered. Nephrology was consulted, given the patient presentation of anemia, SAGRARIO, hypercalcemia, osteolytic lesions on imaging, back pain there is high suspicion for multiple myeloma for which SPECT analysis was ordered. Patient noted to have downtrending H&H which required blood transfusion however pt is Adventism, he refuse blood transfusion. Hence transfuse Retacrit 10,000 unit SC and ferumoxytol 510mg x2 per nephrology recommendation. Patient H&H stabilized however iron level significantly increased to 753. Encourage patient to follow-up with his oncology Dr. Camara for bone marrow biopsy, SPECT analysis of multiple myeloma workup and results, and repeat iron and renal panel within the next week. Throughout the hospital course patient other problems were managed and hhis condition improved remarkably with progression of hospital course. Further plan to discharge the patient home since he is stable and responded well to hospital treatment. Discharge recommendation: - Follow up with PCP in 1-2 weeks, If you don't have a PCP, you can make an appointment at the [facility]: - Follow up in [address] Rivera and circuit board repair technician Dr. Arthur for MM work up. - Repeat iron penal and renal panel within 1 week and f/u with PCP - Started new medication dronabinol for appetite stimulants, folic acid and nephro-afia - STOP calcium carbonate supplements as you have high calcium levels in your blood - STOP prednisone - Continue rest of medications as previously prescribed - Return to the ED or call EMS is symptoms return and/or worsen Hospital Diagnoses: #Normocytic anemia most likely secondary to multiple myeloma versus less likely other malignancy #Chest pain most likely secondary to bone destruction #Osteolytic lesion, multiple, most likely secondary to multiple myeloma versus less likely other malignancy #Thoracic vertebrae fracture #Hypercalcemia (improving) #History of osteoporosis #SAGRARIO most likely prerenal and renal secondary to potential multiple myeloma #History of ulcerative colitis #History of coronary artery disease s/p 1 stent placement #History of hyperlipidemia #History obstructive sleep apnea Patient assessed under supervision of attending physician and senior resident Dr. Espitia PGY-3 Bella Cadena MD PGY-1, Internal Medicine Please note: this document was transcribed using voice recognition technology; minor inaccuracies may be present. Time Spent with Patient Time attestation: Total time spent providing and/or coordinating discharge services: Time spent: Greater than 30 minutes Exam Vital Signs Temp Pulse Resp BP Pulse Ox O2 Del Method 97.7 F 88 18 143/69 H 92 L Room Air 04/18/25 08:00 04/18/25 12:00 04/18/25 08:00 04/18/25 09:04 04/18/25 08:00 04/18/25 08:00 Narrative Exam GEN: AOx3, looks pale, able to speak full sentences HEENT: NC/AC, PERRLA, oral mucosa dry, neck supple CVS: RRR, S1-S2 present, no murmurs appreciated RESP: CTAB GI: soft,non distended, non tender, NBS MSK: able to move all 4 limbs, no lower extremity edema SKIN: warm and dry SLIDE MACHINE TENDER: CN II-XII and Sensation grossly intact. Discharge Plan Plan Patient Disposition: HOME (Self Care) Patient condition on transfer: Benefits outweigh risks Care Plan Goals: - Follow up with PCP in 1-2 weeks, If you don't have a PCP, you can make an appointment at the [facility]: - Follow up in [address] Rivera and circuit board repair technician Dr. Arthur for MM work up. - Repeat iron penal and renal panel within 1 week and f/u with PCP - Started new medication dronabinol for appetite stimulants, folic acid and nephro-afia - STOP calcium carbonate supplements as you have high calcium levels in your blood - STOP prednisone - Continue rest of medications as previously prescribed - Return to the ED or call EMS is symptoms return and/or worsen Prescriptions/Referrals Prescriptions/Med Rec: New dronabinol 2.5 mg Capsule 2.5 mg PO BIDAC 14 Days Qty: 28 0RF folic acid 1 mg Tablet 1 mg PO QDAY 14 Days Qty: 14 0RF Nephro-Afia 0.8 mg Tablet 1 tab PO QDAY 14 Days Qty: 14 0RF oxycodone-acetaminophen 7.5-300 mg tablet 1 tab PO Q8H MDD 22.5mG PRN (Reason: pain) 3 Days Qty: 9 0RF Continued cetirizine 10 mg tablet 10 mg PO AC Patient Comments: TAKE 1 TABLET BY MOUTH DAILY amlodipine 5 mg tablet 10 mg PO QDAY Patient Comments: GENERIC FOR NORVASC- TAKE 1 TABLET BY MOUTH EVERY DAY hydrocodone-acetaminophen 10-325 mg tablet 1 tab PO QDAY PRN (Reason: pain) Patient Comments: TAKE 1/2 TABLET BY MOUTH EVERY 6 HOURS NEEDED Leqvio 284 mg/1.5 mL syringe 284 mg subcut .q6mo Patient Comments: patient states that he takes once every 6 months mesalamine [Delzicol] 400 mg Capsule (With Del Rel Tablets) 800 mg PO BID Qty: 30 0RF sertraline 25 mg tablet 25 mg PO HS Qty: 30 0RF Discontinued prednisone 20 mg tablet 20 mg PO QDAY Patient Comments: TAKE 2 TABLETS BY MOUTH DAILY calcium carbonate 600 mg calcium (1,500 mg) tablet 600 mg PO QDAY Qty: 30 0RF Referrals: Yoly Polo MD [Primary Care Provider, Family Practice] Patient/Caregiver Discharge Instructions Print Language: Czech Stand Alone Forms: Breanne Award Info., Patient Portal Info Letter Discharge Order Discharge Orders: Discharge (Routine); Ordered 04/18/25 Ordered By: Aminata Espitia Quality Discharge Quality Measures VTE prophylaxis Attestestation Attestation I have discussed and was present for the essential components of the discharge history, physical examination, diagnosis, and discharge treatment plan with the resident. I agree with the patient's discharge care as documented by the resident and amended herein by me. Jeremy Camarillo, . The patient understood all discharge instructions, all questions were answered satisfactorily. The patient was instructed to return to the Emergency Department is symptoms worsened or persisted. Patient will need close PCP follow-up, we did give the information to our [facility]. She will also need to follow-up with oncology and nephrology for further workup for suspected multiple myeloma. See resident note above for additional details in regards to hospital stay. All questions were answered satisfactorily, the patient was stable, afebrile tolerating p.o. intake and ambulatory at time of discharge home. Although this document has been carefully reviewed, there may still be some phonetic and other typographical errors. These errors are purely grammatical due to imperfections in the software program and should not be construed in any way to compromise the substance of the patient's medical care during this visit.
[2025-04-18] MEDS: DENOSUMAB INJ 60 MG/ML SYRINGE SC (12:38)
[2025-04-21 06:31] LABS: CA 19-9 Antigen* 5 U/mL (<34)
== END 2025-04-18 13:54 | disposition home or self-care (01) | DRG 683 ==
LOC: SERX 13:40 → SERHOLD 15:52 → S3SX 16:16
PROVIDERS: Internal Medicine; Registered Nurse General Practice; Student in an Organized Health Care Education/Training Program; Admitting Provider Student in an Organized Health Care Education/Training Program; Emergency Provider Family Medicine; PCP Family Medicine; Visit Provider Student in an Organized Health Care Education/Training Program
DX: N17.9 Acute kidney failure, unspecified (principal); K50.90 Crohn's disease, unspecified, without complications; K51.90 Ulcerative colitis, unspecified, without complications; S22.080A Wedge compression fracture of T11-T12 vertebra, initial encounter for closed fracture; Z95.5 Presence of coronary angioplasty implant and graft; I25.10 Atherosclerotic heart disease of native coronary artery without angina pectoris; I12.9 Hypertensive chronic kidney disease with stage 1 through stage 4 chronic kidney disease, or unspecified chronic kidney disease; N18.30 Chronic kidney disease, stage 3 unspecified; E78.5 Hyperlipidemia, unspecified; E83.52 Hypercalcemia; E86.0 Dehydration; R07.89 Other chest pain; M89.58 Osteolysis, other site; G89.29 Other chronic pain; E78.00 Pure hypercholesterolemia, unspecified; G47.33 Obstructive sleep apnea (adult) (pediatric); K44.9 Diaphragmatic hernia without obstruction or gangrene; D64.9 Anemia, unspecified; M81.0 Age-related osteoporosis without current pathological fracture; C80.1 Malignant (primary) neoplasm, unspecified; R07.9 Chest pain, unspecified; K59.00 Constipation, unspecified; Z87.891 Personal history of nicotine dependence
CPT/HCPCS: 36415; 71045; 71250; 74176; 76770; 80053; 80069; 80307; 81001; 82105; 82378; 82436; 82550; 82570; 83540; 83550; 83615; 83735; 83880; 84100; 84133; 84156; 84300; 84484; 84540; 85014; 85018; 85025; 85610; 85730; 86301; 86850; 86900; 86901; 93005; 93225; 93306; 96360; 96361; 99283; J0897; J1644; J3475; J7030; J7042; J7050; Q0138; Q0167; Q5105; A9270